=== PATIENT | male | born 1960 | race African-American/Black ===

== ENCOUNTER 2017-02-05 19:43 | Inpatient (IN) ==
[2017-02-05] MEDS ORDERED: MORPHINE 2 MG/1 ML SYRINGE IV STA (21:27)
[2017-02-05] MEDS ORDERED: SODIUM CHLORIDE 0.9% 1,000 ML IV STA (21:27)
[2017-02-05] MEDS ORDERED: ONDANSETRON 4 MG/2 ML VIAL IV STA (21:27)
[2017-02-05] MEDS ORDERED: ALUM/MAG/SIMETH/LIDO VISC 1:1 30 ML BOTTLE PO STA (21:28)
[2017-02-05 21:33] LABS: Basophils % 0.2 % (0.0-0.8); Eosinophils # 0.1 10*3/uL (0.0-0.87); Hematocrit 34.3 VOL% (42.0-52.0); Hemoglobin 10.6 GM/DL (14.0-18.0); Immature Granulocytes % 0.3 %; Immature Granulocytes Absolute 0.03 #; Lymphocytes % 9.7 % (21.2-54.2); Mean Corpuscular HGB Conc 30.9 GM/DL (32-36); Mean Corpuscular Hemoglobin 26 PG (27-34); Mean Corpuscular Volume 84.3 FL (87-102); Mean Platelet Volume 11.1 FL (9.6-12.0); Monocytes # 0.6 10*3/uL (0.11-0.8); Monocytes % 5.9 % (1.7-12.7); Neutrophils # 8.1 10*3/uL (1.4-7.4); Neutrophils % 82.9 % (38.7-73.9); Platelet Count 243 T/CUMM (130-400); Red Blood Count 4.07 MC/CUMM (3.8-5.5); Red Cell Distribution Width 17.4 % (9.3-17.3); White Blood Count 9.8 T/CUMM (4-12)
--- NOTE | 2017-02-05 21:43 | Emergency Department Note ---
IJenniffer Emily, am scribing for, and in the presence of, Preston Bright MD 21:40. IKaila Andrew, MD, personally performed the services described in this documentation, ascribed by Leila Abad in my presence, and it is both accurate and complete . Arrival - Arrival Chief Complaint: Nausea/Vomiting/Diarrhea Stated Complaint: CHEST/STOMACH/BACK PAIN ED Nursing Triage Note: C/C abd pain, N/V, epigastric pain. Seen earlier today for same c/c. Pt states s/s got worse. Pt states he is is also having CP that is worse than it was earlier today. CP is nonradiating. Pt vomiting in triage Mode of Arrival: Wheelchair Limitations: No Limitations Source: Patient Time Seen by Provider: 02/05/17 21:24 - History of Present Illness HPI Narrative: Pt is a 56 y/o male who came to ED with c/o burning abdomen and epigastric pain with N/V that worsened earlier today. Pt notes coming to ED this morning to be seen for same sxs but now has chest pain that is non radiating. Pt had results from this morning of 176 lipase, nml CXR and KUB xray along with given prescriptions of Protonix Tab 40 mg PO DAILY #14 tablet and Sucralfate Liquid [ Carafate Liquid] 1 gm. Pt has nml PO intake. He reports having to get his esophagus dilated from time to time and usually does this at [facility] due to trouble swallowing and food coming back up. PMHx of [place] in [address] Murphy; EGD 02/2015-Dilatation, Also history of Heler Myotomy - 12/2016. Onset (ago): day(s) Consistency: constant Severity: moderate Severity scale (1-10): 6 Quality: burning Allergies/Adverse Reactions: Allergies Allergy/AdvReac Type Severity Reaction Status Date / Time No Known Allergies Allergy Verified 02/05/17 20:08 Home Medications: Home Medications Medication Instructions Recorded Confirmed Type Nitroglycerin Sl Tab [Nitrostat] 0.4 mg SL TID 02/19/15 02/05/17 History Isosorbide Mononitrate [Imdur] 30 mg PO DAILY 01/22/16 02/05/17 History Baclofen Tab [Lioresal] 5 mg PO TID 03/18/16 02/05/17 History Metoclopramide Tab [Reglan Tab] 5 mg PO TIDAC 03/18/16 02/05/17 History Omeprazole [Prilosec] 20 mg PO DAILY 04/28/16 02/05/17 History Metoprolol Tartrate Tab [Lopressor 25 mg PO DAILY 07/06/16 02/05/17 History Tab] HYDROcodone/ACETAMIN 7.5-325 1 tablet PO Q6H #14 tablet 02/02/17 02/05/17 Rx [[place] 7.5-325] Pantoprazole Tab [Protonix Tab] 40 mg PO DAILY #14 tablet 02/05/17 02/05/17 Rx Sucralfate Liquid [Carafate Liquid] 1 gm NG Q6HR #30 udcup 02/05/17 02/05/17 Rx Review of System - Review of System 12 point system: reviewed and no additional remarkable complaints except as stated - Review of System Constitutional: Absent: fever Head/Ears/Nose/Throat: Absent: nasal drainage Respiratory: Absent: cough, respiratory distress Cardiovascular: Present: chest pain (epigastric) Gastrointestinal: Present: abdominal pain, nausea, vomiting Musculoskeletal: Absent: arm pain Skin: Absent: rash Neurological: Absent: headache Medical,Surgical,& Family Hx - Medical History Cardio: History of: CAD (prior [place]), Hypertension, [place] (04/17/2014), 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 REGURGITATE OFTEN.), GI Problems (has achalasia and esophageal strictures:kenny cunningham;wt loss,Supp Tube Feeding) Musculoskeletal: History of: Back/Neck Problems (Steroid Injections; Pain Neck, Shoulder, Back Lt Rad down arm), Degenerative Disk Disease (Cervical) Hematology: History of: Anemia No history of: Blood Transfusion Reaction Reproductive: No histroy: Reproductive Cancer Other: No history of: Anesthesia Reactions, Cancer - Surgical History Cardiac Surgeries: Sugical HX of: Cardiac Catheterization (x2 Caths-No Stents) Thoracic Surgeries: Patient denies;: Organ Transplant HEENT Surgeries: Patient denies: Eye Surgery, Tonsilectomy & Adenoidectomy Abdominal Surgeries: Surgical HX of: Abdominal Surgery (J-Tube and removal of jtube in 2013), Colonoscopy, EGD (02/2015-Dilitation;Also history of Heler Myotomy; 12/2016) Patient denies: Appendectomy, Cholecystectomy Reproductive Surgeries: Patient denies;: Genitourinary Surgery, Vasectomy Orthopedic Surgeries: Patient denies;: Orthopedic Surgery, Spinal Surgery (01/01/17 Sched for [facility]) - Family History Family History: Reports;: Family Cancer (Father), Family Diabetes (mom and 2 brothers), Family Hypertension (mom) Denies;: Family Heart Disease, Family Psychiatric Problems, Family Stroke - Social History Smoking Status: Former smoker Frequency of Alcohol Use: None Type of Drug Use: None Functional capacity: independent ambulation Exam Vital Signs: Vital Signs Temperature 97 F L 02/05/17 20:01 Pulse Rate 89 02/05/17 20:01 Respiratory Rate 18 02/05/17 20:01 Blood Pressure 143/94 02/05/17 20:01 O2 Sat by Pulse Oximetry 96 02/05/17 20:01 - General General appearance: alert, in distress (secondary to pain) - Head Head exam: Present: atraumatic, normocephalic - Eye Eye exam: Present: PERRL, EOMI - ENT ENT exam: Present: mucous membranes moist. Absent: mucous membranes dry - Neck Neck exam: Present: full ROM. Absent: tenderness - Chest Chest inspection: Present: symmetric chest wall rise. Absent: tenderness - Respiratory Respiratory exam: Present: normal lung sounds bilaterally. Absent: respiratory distress - Cardiovascular Cardiovascular exam: Present: regular rate, normal rhythm, normal heart sounds - Abdominal Exam Abdominal exam: Present: soft, tenderness (epigastric). Absent: distention, guarding, rebound - Extremities Exam Extremities exam: Present: full ROM. Absent: tenderness, pedal edema - Neurological Exam Neurological exam: Present: alert, oriented X3, CN II-XII intact. Absent: motor sensory deficit - Psychiatric Psychiatric exam: Present: normal affect, normal mood - Skin Skin exam: Present: warm, dry Course Course Narrative: Patient given morphine for pain and Zofran followed by Phenergan for nausea and vomiting. Patient has been seen twice today, and feel he should be admitted for intractable nausea and vomiting at this time. Labs are essentially unremarkable and stable from previous. Discussed with hospitalist and he will admit for further management. Patient does have a history of esophageal stricture, however, given patient's presentation, do not feel this is the cause for his symptoms at this time. Results - Labs CBC & BMP: 02/05/17 20:54 02/05/17 20:54 Lab Results: I have reviewed the patients labs Labs: Laboratory Tests 02/05/17 20:54 WBC 9.8 RBC 4.07 Hgb 10.6 L Hct 34.3 L MCV 84.3 L MCH 26 L MCHC 30.9 L RDW 17.4 H Plt Count 243 Neut % (Auto) 82.9 H Lymph % (Auto) 9.7 L Neut # (Auto) 8.1 H Lymph # (Auto) 1.0 L Laboratory Tests 02/05/17 20:54 Sodium 138 Potassium 4.8 Chloride 102 Carbon Dioxide 28 BUN 7 BUN/Creatinine Ratio 7.00 Glucose 119 H Total Bilirubin < 0.39 Alkaline Phosphatase 145 H Lipase 114.0 D Disposition Clinical Impression: Nausea and vomiting, Epigastric pain Case discussed with: patient Disposition: Still a Patient Condition: Stable
[2017-02-05] MEDS ORDERED: ONDANSETRON 4 MG/2 ML VIAL ONE (21:45)
[2017-02-05] MEDS ORDERED: MORPHINE 2 MG/1 ML SYRINGE ONE (21:45)
[2017-02-05 21:46] LABS: Alanine Aminotransferase 23 U/L (16-61); Albumin 3.9 G/DL (3.4-5.0); Alkaline Phosphatase 145 U/L (45-117); Aspartate Amino Transferase 22 U/L (0-37); Bilirubin,Total < 0.39 MG/DL (0.2-1.0); Blood Urea Nitrogen 7 MG/DL (7-18); Calcium 9.1 MG/DL (8.5-10.1); Glucose 119 MG/DL (74-106); Osmolality,Calculated 273.7 MOS/KG (273-304); Potassium 4.8 MMOL/L (3.5-5.1); Sodium 138 MMOL/L (136-145); Total Protein 7.4 G/DL (6.4-8.3)
[2017-02-05] MEDS ORDERED: ALUM/MAG/SIMETH/LIDO VISC 1:1 30 ML BOTTLE PO ONE (21:46)
[2017-02-05] MEDS ORDERED: PROMETHAZINE INJ 25 MG in SODIUM CHLORIDE 0.9% 50 ML IV STA (23:02)
[2017-02-05] MEDS ORDERED: PROMETHAZINE 25 MG/1 ML VIAL ONE (23:05)
[2017-02-05] MEDS ORDERED: HYDROmorphone 2 MG/1 ML VIAL IV STA (23:35)
[2017-02-05] MEDS ORDERED: ZALEPLON 5 MG CAPSULE PO PRN (23:50)
[2017-02-05] MEDS ORDERED: ONDANSETRON 4 MG/2 ML VIAL IV PRN (23:50)
[2017-02-05] MEDS ORDERED: PROMETHAZINE 25 MG TABLET PO PRN (23:50)
[2017-02-05] MEDS ORDERED: ACETAMINOPHEN 325 MG TABLET PO PRN (23:50)
--- NOTE | 2017-02-06 00:05 | Hospitalist History & Physical ---
History of Present Illness Chief complaint: nausea and vomiting History of present illness: Mr. Zarate is a 56 year old male who came to ED with c/o burning abdomen and epigastric pain with N/V that worsened earlier today. Pt notes coming to ED this morning to be seen for same sxs but now has chest pain that is non radiating. Pt had results from this morning of 176 lipase, nml CXR and KUB xray along with given prescriptions of Protonix Tab 40 mg PO DAILY #14 tablet and Sucralfate Liquid [Carafate Liquid] 1 gm. Pt has nml PO intake. He reports having to get his esophagus dilated from time to time and usually does this at [facility] due to trouble swallowing and food coming back up. PMHx of [place] in [address] Murphy; EGD 02/2015-Dilatation, Also history of Heler Myotomy - 12/2016. He has returned to the emergency department complaining of continued nausea and vomiting. He will be admitted to the hospitalist service for observation and symptomatic treatment with IV fluids, antiemetics, pain medications as needed. Home Medications Medication Instructions Recorded Confirmed Type Nitroglycerin Sl Tab [Nitrostat] 0.4 mg SL TID 02/19/15 02/05/17 History Isosorbide Mononitrate [Imdur] 30 mg PO DAILY 01/22/16 02/05/17 History Baclofen Tab [Lioresal] 5 mg PO TID 03/18/16 02/05/17 History Metoclopramide Tab [Reglan Tab] 5 mg PO TIDAC 03/18/16 02/05/17 History Omeprazole [Prilosec] 20 mg PO DAILY 04/28/16 02/05/17 History Metoprolol Tartrate Tab [Lopressor 25 mg PO DAILY 07/06/16 02/05/17 History Tab] HYDROcodone/ACETAMIN 7.5-325 1 tablet PO Q6H #14 tablet 02/02/17 02/05/17 Rx [[place] 7.5-325] Pantoprazole Tab [Protonix Tab] 40 mg PO DAILY #14 tablet 02/05/17 02/05/17 Rx Sucralfate Liquid [Carafate Liquid] 1 gm NG Q6HR #30 udcup 02/05/17 02/05/17 Rx Allergies Allergy/AdvReac Type Severity Reaction Status Date / Time No Known Allergies Allergy Verified 02/05/17 20:08 Medical,Surgical,& Family Hx - Medical History Cardio: History of: CAD (prior [place]), Hypertension, [place] (04/17/2014), 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 REGURGITATE OFTEN.), GI Problems (has achalasia and esophageal strictures:kenny cunningham;wt loss,Supp Tube Feeding) Musculoskeletal: History of: Back/Neck Problems (Steroid Injections; Pain Neck, Shoulder, Back Lt Rad down arm), Degenerative Disk Disease (Cervical) Hematology: History of: Anemia No history of: Blood Transfusion Reaction Reproductive: No histroy: Reproductive Cancer Other: No history of: Anesthesia Reactions, Cancer - Surgical History Cardiac Surgeries: Sugical HX of: Cardiac Catheterization (x2 Caths-No Stents) Thoracic Surgeries: Patient denies;: Organ Transplant HEENT Surgeries: Patient denies: Eye Surgery, Tonsilectomy & Adenoidectomy Abdominal Surgeries: Surgical HX of: Abdominal Surgery (J-Tube and removal of jtube in 2013), Colonoscopy, EGD (02/2015-Dilitation;Also history of Heler Myotomy; 12/2016) Patient denies: Appendectomy, Cholecystectomy Reproductive Surgeries: Patient denies;: Genitourinary Surgery, Vasectomy Orthopedic Surgeries: Patient denies;: Orthopedic Surgery, Spinal Surgery (01/01/17 Sched for [facility]) - Family History Family History: Reports;: Family Cancer (Father), Family Diabetes (mom and 2 brothers), Family Hypertension (mom) Denies;: Family Heart Disease, Family Psychiatric Problems, Family Stroke - Social History Smoking Status: Former smoker Frequency of Alcohol Use: None Type of Drug Use: None Exam - Constitutional Vitals: Period Temp Pulse Resp BP Sys/Spicer Pulse Ox Last 24 Hr 97 F-97 F 86-89 18-18 143-143/94-94 96 Results - Labs CBC & BMP: 02/05/17 20:54 02/05/17 20:54
[2017-02-06] MEDS ORDERED: HYDROmorphone 2 MG/1 ML VIAL ONE (00:13)
[2017-02-06] MEDS: SODIUM CHLORIDE 0.9% 1,000 ML IV SCH ×4 (01:40→20:58)
[2017-02-06] MEDS: SUCRALFATE 1 GM/10 ML UDCUP NG SCH ×6 (01:58→23:16)
[2017-02-06] MEDS ORDERED: KETOROLAC 15 MG/1 ML VIAL IV PRN (04:31)
[2017-02-06] MEDS: MORPHINE 2 MG/1 ML SYRINGE IV PRN ×4 (04:45→21:30)
[2017-02-06 07:13] LABS: Alanine Aminotransferase 18 U/L (16-61); Albumin 3.3 G/DL (3.4-5.0); Alkaline Phosphatase 131 U/L (45-117); Aspartate Amino Transferase 17 U/L (0-37); Bilirubin,Total < 0.39 MG/DL (0.2-1.0); Blood Urea Nitrogen 10 MG/DL (7-18); Glucose 118 MG/DL (74-106); Magnesium 2.1 MG/DL (1.8-2.4); Osmolality,Calculated 276.5 MOS/KG (273-304); Potassium 4.5 MMOL/L (3.5-5.1); Sodium 139 MMOL/L (136-145); Total Protein 6.5 G/DL (6.4-8.3)
--- NOTE | 2017-02-06 07:32 | EKG Report ---
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
[2017-02-06] MEDS: METOCLOPRAMIDE 5 MG TABLET PO SCH ×3 (07:48→16:27)
--- NOTE | 2017-02-06 08:56 | General Surgery Consult Note ---
History of Present Illness Chief complaint: achalasia, Menetiere's disease History of present illness: Mr. Zarate is a 56 year old male Bill Zarate is a 56-year-old man that I have met in 2012 with what initially appeared to be primary achalasia. At the time of the Heller myotomy have found however that he also had what appears to be Menetrier's disease or a hypertrophy of the gastric mucosa. He has had difficulties throughout the remaining time with strictures at his EG junction achalasia poor gastric emptying he has been thoroughly evaluated at [facility] and he sees Dr. Fernández regularly and has endoscopies and dilatations. He was admitted this time after having chest and abdominal pain and vomiting he states he vomited up some blood but he feels better this morning. My understanding is that he is scheduled for EGD this morning Dr. Berg will proceed I do not anticipate any surgical intervention at this time. Home Medications Medication Instructions Recorded Confirmed Type Nitroglycerin Sl Tab [Nitrostat] 0.4 mg SL TID 02/19/15 02/05/17 History Isosorbide Mononitrate [Imdur] 30 mg PO DAILY 01/22/16 02/05/17 History Baclofen Tab [Lioresal] 5 mg PO TID 03/18/16 02/05/17 History Metoclopramide Tab [Reglan Tab] 5 mg PO TIDAC 03/18/16 02/05/17 History Omeprazole [Prilosec] 20 mg PO DAILY 04/28/16 02/05/17 History Metoprolol Tartrate Tab [Lopressor 25 mg PO DAILY 07/06/16 02/05/17 History Tab] HYDROcodone/ACETAMIN 7.5-325 1 tablet PO Q6H #14 tablet 02/02/17 02/05/17 Rx [[place] 7.5-325] Pantoprazole Tab [Protonix Tab] 40 mg PO DAILY #14 tablet 02/05/17 02/05/17 Rx Sucralfate Liquid [Carafate Liquid] 1 gm NG Q6HR #30 udcup 02/05/17 02/05/17 Rx Allergies Allergy/AdvReac Type Severity Reaction Status Date / Time No Known Allergies Allergy Verified 02/05/17 20:08 Medical,Surgical,& Family Hx - Medical History Cardio: History of: CAD (prior [place]), Hypertension, [place] (04/17/2014), 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 REGURGITATE OFTEN.), GI Problems (has achalasia and esophageal strictures:h marisa;wt loss,Supp Tube Feeding) Musculoskeletal: History of: Back/Neck Problems (Steroid Injections; Pain Neck, Shoulder, Back Lt Rad down arm), Degenerative Disk Disease (Cervical) Hematology: History of: Anemia No history of: Blood Transfusion Reaction Reproductive: No histroy: Reproductive Cancer Other: No history of: Anesthesia Reactions, Cancer - Surgical History Cardiac Surgeries: Sugical HX of: Cardiac Catheterization (x2 Caths-No Stents) Thoracic Surgeries: Patient denies;: Organ Transplant HEENT Surgeries: Patient denies: Eye Surgery, Tonsilectomy & Adenoidectomy Abdominal Surgeries: Surgical HX of: Abdominal Surgery (J-Tube and removal of jtube in 2013), Colonoscopy, EGD (02/2015-Dilitation;Also history of Heler Myotomy; 12/2016) Patient denies: Appendectomy, Cholecystectomy Reproductive Surgeries: Patient denies;: Genitourinary Surgery, Vasectomy Orthopedic Surgeries: Patient denies;: Orthopedic Surgery, Spinal Surgery (01/01/[address] Casas) - Family History Family History: Reports;: Family Cancer (Father), Family Diabetes (mom and 2 brothers), Family Hypertension (mom) Denies;: Family Heart Disease, Family Psychiatric Problems, Family Stroke - Social History Smoking Status: Former smoker Frequency of Alcohol Use: None Type of Drug Use: None Exam - Constitutional Vitals: Period Temp Pulse Resp BP Sys/Spicer Pulse Ox Last 24 Hr 96.8 F-98.4 F 86-100 18-20 136-154/69-95 96-100 Quality Measures - Stroke Symptom Onset Unknown: No Results - Labs CBC & BMP: 02/05/17 20:54 02/06/17 05:50
[2017-02-06] MEDS ORDERED: PANTOPRAZOLE 40 MG TABLET PO SCH (09:00)
[2017-02-06] MEDS ORDERED: NON-FORMULARY MEDICATION (Omeprazole [Prilosec] 20 MG) PO SCH (09:00)
[2017-02-06] MEDS: NITROGLYCERIN SL 0.4 MG TABLET SL SCH ×4 (09:06→20:12)
[2017-02-06] MEDS: BACLOFEN 10 MG TABLET PO SCH ×4 (09:06→20:11)
[2017-02-06] MEDS: ENOXAPARIN 40 MG/0.4 ML SYRINGE SUBCUT SCH (09:06)
[2017-02-06] MEDS: METOPROLOL TARTRATE 25 MG TABLET PO SCH ×2 (09:06→13:13)
[2017-02-06] MEDS: ISOSORBIDE MONONITRATE 30 MG TABLET PO SCH ×2 (09:06→13:13)
[2017-02-06] MEDS ORDERED: PROMETHAZINE 25 MG/1 ML VIAL ONE (09:30)
[2017-02-06] MEDS ORDERED: fentaNYL 100 MCG/2 ML VIAL ONE (09:46)
[2017-02-06] MEDS ORDERED: SUCCINYLCHOLINE 200 MG/10 ML VIAL ONE (10:17)
[2017-02-06] MEDS ORDERED: ONDANSETRON 4 MG/2 ML VIAL ONE (10:17)
[2017-02-06] MEDS ORDERED: PROPOFOL 200 MG/20 ML VIAL IV ONE (10:17)
--- NOTE | 2017-02-06 11:21 | Gastrointestinal Consult Note ---
Assessment and Plan - Time spent with patient Time spent with patient: Greater than 30 minutes (1) Upper GI bleeding Status: Acute Assessment and plan: Acute upper GI bleeding in patient who has been hemodynamically stable since arrival. Differential includes peptic ulcer bleeding, vascular abnormality in upper GI tract, Brianna-Aldridge tear. Plan upper endoscopy today to evaluate further. Continue empiric PPI therapy. Current Visit: Yes History of Present Illness Chief complaint: Upper GI bleeding History of present illness: Mr. Zarate is a 56 year old male known to me who has had previous Heller myotomy and recurrent stricture formation at GE junction requiring esophageal dilation. He has had problems with malnutrition due to poor oral intake and has been on TPN in the past for this. Patient states that he had been doing fairly well well of late but over the last 4 days has had burning epigastric pain and recurrent vomiting. Yesterday, he had onset of hematemesis with several episodes noted. He denies any black stools/melena or hematochezia. On presentation, patient has been hemodynamically normal. He had hemoglobin last night which was 10.4. Patient denies taking any nonsteroidal medications recently. Home Medications Medication Instructions Recorded Confirmed Type Nitroglycerin Sl Tab [Nitrostat] 0.4 mg SL TID 02/19/15 02/05/17 History Isosorbide Mononitrate [Imdur] 30 mg PO DAILY 01/22/16 02/05/17 History Baclofen Tab [Lioresal] 5 mg PO TID 03/18/16 02/05/17 History Metoclopramide Tab [Reglan Tab] 5 mg PO TIDAC 03/18/16 02/05/17 History Omeprazole [Prilosec] 20 mg PO DAILY 04/28/16 02/05/17 History Metoprolol Tartrate Tab [Lopressor 25 mg PO DAILY 07/06/16 02/05/17 History Tab] HYDROcodone/ACETAMIN 7.5-325 1 tablet PO Q6H #14 tablet 02/02/17 02/05/17 Rx [[place] 7.5-325] Pantoprazole Tab [Protonix Tab] 40 mg PO DAILY #14 tablet 02/05/17 02/05/17 Rx Sucralfate Liquid [Carafate Liquid] 1 gm NG Q6HR #30 udcup 02/05/17 02/05/17 Rx Allergies Allergy/AdvReac Type Severity Reaction Status Date / Time No Known Allergies Allergy Verified 02/05/17 20:08 Medical,Surgical,& Family Hx - Medical History Cardio: History of: CAD (prior [place]), Hypertension, [place] (04/17/2014), 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 REGURGITATE OFTEN.), GI Problems (has achalasia and esophageal strictures:kenny cunningham;wt loss,Supp Tube Feeding) Musculoskeletal: History of: Back/Neck Problems (Steroid Injections; Pain Neck, Shoulder, Back Lt Rad down arm), Degenerative Disk Disease (Cervical) Hematology: History of: Anemia No history of: Blood Transfusion Reaction Reproductive: No histroy: Reproductive Cancer Other: No history of: Anesthesia Reactions, Cancer - Surgical History Cardiac Surgeries: Sugical HX of: Cardiac Catheterization (x2 Caths-No Stents) Thoracic Surgeries: Patient denies;: Organ Transplant HEENT Surgeries: Patient denies: Eye Surgery, Tonsilectomy & Adenoidectomy Abdominal Surgeries: Surgical HX of: Abdominal Surgery (J-Tube and removal of jtube in 2013), Colonoscopy, EGD (02/2015-Dilitation;Also history of Heler Myotomy; 12/2016) Patient denies: Appendectomy, Cholecystectomy Reproductive Surgeries: Patient denies;: Genitourinary Surgery, Vasectomy Orthopedic Surgeries: Patient denies;: Orthopedic Surgery, Spinal Surgery (01/01/17 Sched for Martin Casas) - Family History Family History: Reports;: Family Cancer (Father), Family Diabetes (mom and 2 brothers), Family Hypertension (mom) Denies;: Family Heart Disease, Family Psychiatric Problems, Family Stroke - Social History Smoking Status: Former smoker Frequency of Alcohol Use: None Type of Drug Use: None - Constitutional Constitutional: Absent: chills, fever(s) - EENT Nose, mouth and throat: Present: dysphagia. Absent: epistaxis - Cardiovascular Cardiovascular: Absent: chest pain with activity, orthopnea, PND - Gastrointestinal Gastrointestinal: Present: as per HPI, abdominal pain, hematemesis, nausea, vomiting - Genitourinary Genitourinary: Present: dysuria, flank pain, hematuria - Neurological Neurological: Absent: abnormal speech, behavioral changes, focal weakness - Endocrine Endocrine: Absent: cold intolerance, heat intolerance - Hematologic/Lymphatic Hematologic/Lymphatic: Absent: easy bleeding, easy bruising Exam - Constitutional Vitals: Period Temp Pulse Resp BP Sys/Spicer Pulse Ox Last 24 Hr 96.8 F-98.4 F 82-100 16-20 136-154/69-97 96-100 General appearance: no acute distress, under weight - Head Head exam: Present: normocephalic, atraumatic - Eye Eye exam: Absent: scleral icterus - Respiratory Respiratory exam: Present: clear to auscultation bilaterally. Absent: wheezes - Cardiovascular Cardiovascular exam: Present: regular rate and rhythm. Absent: gallop, rubs - GI/Abdominal GI/Abdominal exam: Present: normal bowel sounds, soft. Absent: distended, tenderness - Extremities Exam Extremities exam: Absent: calf tenderness, edema - Neurological Exam Neurological exam: Present: alert, oriented X3, CN II-XII intact. Absent: motor sensory deficit - Psychiatric Psychiatric exam: Present: flat affect - Skin Skin exam: Present: warm, dry Results - Labs CBC & BMP: 02/05/17 20:54 02/06/17 05:50 Lab Results: I have reviewed the past 24 hour labs Quality Measures - Stroke Symptom Onset Unknown: No
--- NOTE | 2017-02-06 11:25 | History and Physical Update ---
History and Physical Update - History and Physical H&P was reviewed, the patient examined and there: are no changes in the patients condition since last H&P was completed. - Physical Exam Mental Status: alert and oriented Heart: regular rate and rhythm Lung: clear to auscultation Abdomen: within normal limits Vitals: within normal limits
--- NOTE | 2017-02-06 11:32 | Anesthesia Post-Op ---
Anesthesia Post OP - Post Ansesthetic Evaluation Patient seen in post op: Yes Resp: within normal limits CV: within normal limits Mental: within normal limits Temp: within normal limits [id number]: within normal limits Nausea and Vomiting: within normal limits Pain: within normal limits
--- NOTE | 2017-02-06 11:34 | Operative Note ---
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 He is admitted with upper GI bleeding which began last night. He has been normotensive since arrival although he does have tachycardia with heart rate in the 110 range this morning. Indication for procedure: Upper GI bleeding Endoscopic findings:[After informed consent was obtained, the patient was placed in the left lateral decubitus position. The gastroscope was inserted in the upper esophagus under direct vision with no resistance encountered. Esophageal mucosa appeared normal in the upper esophagus. In the mid and distal esophagus there was a large bright red clot noted which I could not suction with the standard gastroscope. This was withdrawn and patient was intubated due to concern about aspiration risk. Therapeutic gastroscope was inserted into the upper esophagus under direct vision. The large clot was removed using polypectomy snare cutting it in pieces before we were finally able to clear all of this. Patient has a fairly dilated esophagus. Multiple small ulcers were noted scattered throughout the esophagus. Photos were taken of these and multiple biopsies was obtained. The endoscope was advanced down to the GE junction. I initially did not see any abnormalities there as there was a large amount of clot here also. Several large clots were grasped with polypectomy snare again and dragged out back through his mouth. We were able to clear all of this to allow good exam. Just below the GE junction there was a large 2.5-3 cm diameter white based ulcer oriented circumferentially. A prominent visible vessel was noted eccentrically in the base of the ulcer back toward the GE junction. Remainder of the stomach was notable for prominent gastric folds in the proximal mid stomach which look like portal gastropathy changes. No varices were seen. The pyloric channel, duodenal bulb, second and third portion of the duodenum were normal. The endoscope was withdrawn back to the GE junction. The visible vessel was clipped endoscopically with 2 instinct clips applied. We appeared to have good results endoscopically with this. The endoscope was then removed. He appeared to tolerate the procedure well.] Impression: #1 large gastric ulcer on gastric side of GE junction with visible vessel-status post endoscopic clipping therapy #2 multiple esophageal ulcers-? Viral #3 dilated esophagus in patient with history of achalasia #4 possible portal gastropathy Recommendations: Repeat hemoglobin/hematocrit. Patient will probably need transfusion at some point. High-dose PPI therapy for now. Anesthesia: CARLINE GUERRA Surgeon / Physician: Claude Berg Estimated blood loss: minimal Specimens: none sent Condition: stable Disposition: post procedure unit Results - Labs CBC & BMP: 02/05/17 20:54 02/06/17 05:50 Discharge Plan - Discharge Medications No Action Nitroglycerin Sl Tab [Nitrostat] 0.4 mg SL TID Isosorbide Mononitrate [Imdur] 30 mg PO DAILY Metoclopramide Tab [Reglan Tab] 5 mg PO TIDAC Baclofen Tab [Lioresal] 5 mg PO TID Omeprazole [Prilosec] 20 mg PO DAILY Metoprolol Tartrate Tab [Lopressor Tab] 25 mg PO DAILY Pantoprazole Tab [Protonix Tab] 40 mg PO DAILY #14 tablet HYDROcodone/ACETAMIN 7.5-325 [[place] 7.5-325] 1 tablet PO Q6H #14 tablet Sucralfate Liquid [Carafate Liquid] 1 gm NG Q6HR #30 udcup - Follow Up or Referral - Forms/Instructions
[2017-02-06] MEDS ORDERED: PANTOPRAZOLE INJ 80 MG in SODIUM CHLORIDE 0.9% 100 ML IV ONE (11:39)
[2017-02-06] MEDS ORDERED: PANTOPRAZOLE 40 MG VIAL IV ONE (12:00)
[2017-02-06 12:12] LABS: Hematocrit 33.2 VOL% (42.0-52.0); Hemoglobin 9.9 GM/DL (14.0-18.0)
[2017-02-06] MEDS: PANTOPRAZOLE INJ 200 MG in SODIUM CHLORIDE 0.9% 250 ML IV SCH (13:11)
--- NOTE | 2017-02-06 13:14 | Pain Management Consult Note ---
Assessment and Plan (1) Epigastric pain Problem details: Worsening epigastric pain Status: Acute Assessment and plan: The patient has had worsening epigastric pain and trouble with meals. Today he had a scope which demonstrated multiple esophageal ulcers and large gastric ulcer. These are most likely the cause of his pain and no block or pain intervention indicated. Current Visit: Yes (2) Facet arthropathy, cervical Problem details: Chronic neck pain Status: Acute Assessment and plan: The patient has chronic neck pain with cervical facet arthropathy. He is undergone 2 diagnostic cervical facet blocks in the clinic with excellent temporary results. He is now candidate for facet denervation and will schedule this once fully recovered from his GI bleed. I will be out the next several days but Dr. Rangel will be available as needed. Current Visit: No History of Present Illness Chief complaint: Abdominal pain History of present illness: Mr. Zarate is a 56 year old male with worsening abdominal pain and chest pain radiation to the back. Pain worse with meals. Some bleeding. Home Medications Medication Instructions Recorded Confirmed Type Nitroglycerin Sl Tab [Nitrostat] 0.4 mg SL TID 02/19/15 02/05/17 History Isosorbide Mononitrate [Imdur] 30 mg PO DAILY 01/22/16 02/05/17 History Baclofen Tab [Lioresal] 5 mg PO TID 03/18/16 02/05/17 History Metoclopramide Tab [Reglan Tab] 5 mg PO TIDAC 03/18/16 02/05/17 History Omeprazole [Prilosec] 20 mg PO DAILY 04/28/16 02/05/17 History Metoprolol Tartrate Tab [Lopressor 25 mg PO DAILY 07/06/16 02/05/17 History Tab] HYDROcodone/ACETAMIN 7.5-325 1 tablet PO Q6H #14 tablet 02/02/17 02/05/17 Rx [[place] 7.5-325] Pantoprazole Tab [Protonix Tab] 40 mg PO DAILY #14 tablet 02/05/17 02/05/17 Rx Sucralfate Liquid [Carafate Liquid] 1 gm NG Q6HR #30 udcup 02/05/17 02/05/17 Rx Allergies Allergy/AdvReac Type Severity Reaction Status Date / Time No Known Allergies Allergy Verified 02/05/17 20:08 Medical,Surgical,& Family Hx - Medical History Cardio: History of: CAD (prior [place]), Hypertension, [place] (04/17/2014), 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 REGURGITATE OFTEN.), GI Problems (has achalasia and esophageal strictures:h marisa;wt loss,Supp Tube Feeding) Musculoskeletal: History of: Back/Neck Problems (Steroid Injections; Pain Neck, Shoulder, Back Lt Rad down arm), Degenerative Disk Disease (Cervical) Hematology: History of: Anemia No history of: Blood Transfusion Reaction Reproductive: No histroy: Reproductive Cancer Other: No history of: Anesthesia Reactions, Cancer - Surgical History Cardiac Surgeries: Sugical HX of: Cardiac Catheterization (x2 Caths-No Stents) Thoracic Surgeries: Patient denies;: Organ Transplant HEENT Surgeries: Patient denies: Eye Surgery, Tonsilectomy & Adenoidectomy Abdominal Surgeries: Surgical HX of: Abdominal Surgery (J-Tube and removal of jtube in 2013), Colonoscopy, EGD (02/2015-Dilitation;Also history of Heler Myotomy; 12/2016) Patient denies: Appendectomy, Cholecystectomy Reproductive Surgeries: Patient denies;: Genitourinary Surgery, Vasectomy Orthopedic Surgeries: Patient denies;: Orthopedic Surgery, Spinal Surgery (01/01/17 Sched for [facility]) - Family History Family History: Reports;: Family Cancer (Father), Family Diabetes (mom and 2 brothers), Family Hypertension (mom) Denies;: Family Heart Disease, Family Psychiatric Problems, Family Stroke - Social History Smoking Status: Former smoker Frequency of Alcohol Use: None Type of Drug Use: None Quality Measures - Stroke Symptom Onset Unknown: No - Constitutional Constitutional: Present: fatigue, weight loss - EENT Nose, mouth and throat: Present: hoarseness - Gastrointestinal Gastrointestinal: Present: abdominal pain, dyspepsia, heartburn - Musculoskeletal Musculoskeletal: Present: back pain, joint swelling, muscle cramps - Endocrine Endocrine: Present: cold intolerance, fatigue Exam - Constitutional Vitals: Period Temp Pulse Resp BP Sys/Spicer Pulse Ox Last 24 Hr 96.8 F-98.4 F 82-100 16-20 135-154/69-97 96-100 General appearance: under weight - Head Head exam: Present: normal inspection - Eye Eye exam: Present: EOMI - Neck Neck exam: Present: tenderness (Left greater than right cervical facet) - Respiratory Respiratory exam: Present: clear to auscultation bilaterally - Cardiovascular Cardiovascular exam: Present: RRR - GI/Abdominal GI/Abdominal exam: Present: hypoactive bowel sounds, tenderness - Back Exam Back exam: Present: vertebral tenderness - Neurological Exam Neurological exam: Present: alert, oriented X3 Results - Labs CBC & BMP: 02/06/17 11:55 02/06/17 05:50
[2017-02-06] MEDS ORDERED: ISOSORBIDE MONONITRATE 30 MG TABLET PO SCH (17:30)
--- NOTE | 2017-02-06 18:06 | Internal Med History&Physical ---
Assessment and Plan (1) Upper GI bleeding Status: Acute Assessment and plan: Continue recommendations as per GI, clear liquids for now, continue IV fluids Current Visit: Yes (2) Atypical chest pain Status: Acute Current Visit: No (3) Hypertension Status: Chronic Assessment and plan: Continue antihypertensives Current Visit: No Qualifiers: Hypertension type: essential hypertension Qualified Code(s): I10 - Essential (primary) hypertension (4) Gastro-esophageal reflux Status: Chronic Assessment and plan: Continue antacids, as per recommendations of GI Current Visit: Yes (5) Nicotine dependence, cigarettes, uncomplicated Status: Chronic Assessment and plan: Advised to quit smoking. Current Visit: Yes History of Present Illness Chief complaint: Nausea vomiting, chest pain, stomach pain History of present illness: Mr. Zarate is a 56 year old male PCP: Dr. Jackie Ashby. Patient came to the ER on 02/05/2017 with the chest, stomach pain with nausea and vomiting getting worse for 1 day. Patient had been admitted for intractable vomiting, threw up 8-9 times, last vomited this a.m. was with stomach contents and with bile. Last bowel movement 2 days ago regular, no blood. Patient had one episode of maroon colored vomit this a.m. has had previous Heller myotomy and recurrent stricture formation at GE junction requiring esophageal dilation. On further inquiring patient mentions he has been using Advil PM andAleeve almost 8-10 tablets in past few days for neck pain back pain, has been drinking coffee almost 7-8 cups per day. No history of unintentional weight loss recently, his appetite fair GI consult/surgery consult done from the ER. Home Medications Medication Instructions Recorded Confirmed Type Nitroglycerin Sl Tab [Nitrostat] 0.4 mg SL TID 02/19/15 02/05/17 History Isosorbide Mononitrate [Imdur] 30 mg PO DAILY 01/22/16 02/05/17 History Baclofen Tab [Lioresal] 5 mg PO TID 03/18/16 02/05/17 History Metoclopramide Tab [Reglan Tab] 5 mg PO TIDAC 03/18/16 02/05/17 History Omeprazole [Prilosec] 20 mg PO DAILY 04/28/16 02/05/17 History Metoprolol Tartrate Tab [Lopressor 25 mg PO DAILY 07/06/16 02/05/17 History Tab] HYDROcodone/ACETAMIN 7.5-325 1 tablet PO Q6H #14 tablet 02/02/17 02/05/17 Rx [[place] 7.5-325] Pantoprazole Tab [Protonix Tab] 40 mg PO DAILY #14 tablet 02/05/17 02/05/17 Rx Sucralfate Liquid [Carafate Liquid] 1 gm NG Q6HR #30 udcup 02/05/17 02/05/17 Rx Allergies Allergy/AdvReac Type Severity Reaction Status Date / Time No Known Allergies Allergy Verified 02/05/17 20:08 Medical,Surgical,& Family Hx - Medical History Cardio: History of: CAD (prior [place]), Hypertension, [place] (04/17/2014), 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 REGURGITATE OFTEN.), GI Problems (has achalasia and esophageal strictures:kenny cunningham;wt loss,Supp Tube Feeding) Musculoskeletal: History of: Back/Neck Problems (Steroid Injections; Pain Neck, Shoulder, Back Lt Rad down arm), Degenerative Disk Disease (Cervical) Hematology: History of: Anemia No history of: Blood Transfusion Reaction Reproductive: No histroy: Reproductive Cancer Other: No history of: Anesthesia Reactions, Cancer - Surgical History Cardiac Surgeries: Sugical HX of: Cardiac Catheterization (x2 Caths-No Stents) Thoracic Surgeries: Patient denies;: Organ Transplant HEENT Surgeries: Patient denies: Eye Surgery, Tonsilectomy & Adenoidectomy Abdominal Surgeries: Surgical HX of: Abdominal Surgery (J-Tube and removal of jtube in 2013), Colonoscopy, EGD (02/2015-Dilitation;Also history of Heler Myotomy; 12/2016) Patient denies: Appendectomy, Cholecystectomy Reproductive Surgeries: Patient denies;: Genitourinary Surgery, Vasectomy Orthopedic Surgeries: Patient denies;: Orthopedic Surgery, Spinal Surgery (01/01/17 Sched for Martin Casas) - Family History Family History: Reports;: Family Cancer (Father), Family Diabetes (mom and 2 brothers), Family Hypertension (mom) Denies;: Family Heart Disease, Family Psychiatric Problems, Family Stroke - Social History Smoking Status: Former smoker Frequency of Alcohol Use: None Type of Drug Use: None - Constitutional Constitutional: Present: as per HPI - EENT Eyes: Present: as per HPI - Cardiovascular Cardiovascular: Present: as per HPI - Respiratory Respiratory: Present: as per HPI - Gastrointestinal Gastrointestinal: Present: as per HPI - Genitourinary Genitourinary: Present: as per HPI - Musculoskeletal Musculoskeletal: Present: as per HPI - Neurological Neurological: Present: as per HPI Exam - Constitutional Vitals: Period Temp Pulse Resp BP Sys/Spicer Pulse Ox Last 24 Hr 96.8 F-98.4 F 82-101 16-20 109-154/69-97 96-100 General appearance: no acute distress, under weight Exam: GENERAL APPEARANCE: alert and oriented, pleasant, HEENT: normal. EYES: extraocular movement intact (EOMI), conjunctiva clear, normal. NECK/THYROID: neck supple, full range of motion, no cervical lymphadenopathy, no thyromegaly. HEART: regular rate and rhythm, no murmurs, rubs, gallops. LUNGS: clear to auscultation bilaterally, no wheezes, rales, rhonchi. ABDOMEN: soft, generalized tenderness, moderate guarding, no rebound tenderness, nondistended, no organomegaly , bowel sounds present. EXTREMITIES: no edema. NEUROLOGIC: alert and oriented, cranial nerves 2-12 grossly intact, Results - Labs CBC & BMP: 02/06/17 11:55 02/06/17 05:50 Lab Results: I have reviewed the past 24 hour labs - Impressions EGD report available from this a.m., reviewed Quality Measures - Stroke Symptom Onset Unknown: No
[2017-02-07 01:48] LABS: Basophils % 0.1 % (0.0-0.8); Eosinophils # 0.1 10*3/uL (0.0-0.87); Eosinophils % 1.9 % (0.00-10.9); Hematocrit 21.8 VOL% (42.0-52.0); Hemoglobin 6.7 GM/DL (14.0-18.0); Immature Granulocytes % 0.1 %; Immature Granulocytes Absolute 0.01 #; Lymphocytes # 1.4 10*3/uL (1.4-4.0); Lymphocytes % 21.2 % (21.2-54.2); Mean Corpuscular HGB Conc 30.7 GM/DL (32-36); Mean Corpuscular Hemoglobin 26 PG (27-34); Mean Corpuscular Volume 85.2 FL (87-102); Mean Platelet Volume 11.4 FL (9.6-12.0); Monocytes # 0.7 10*3/uL (0.11-0.8); Monocytes % 10.4 % (1.7-12.7); Neutrophils # 4.5 10*3/uL (1.4-7.4); Neutrophils % 66.3 % (38.7-73.9); Platelet Count 177 T/CUMM (130-400); Red Blood Count 2.56 MC/CUMM (3.8-5.5); Red Cell Distribution Width 17.6 % (9.3-17.3); White Blood Count 6.8 T/CUMM (4-12)
[2017-02-07 02:16] LABS: Calcium 7.3 MG/DL (8.5-10.1); Magnesium 1.8 MG/DL (1.8-2.4); Osmolality,Calculated 283.8 MOS/KG (273-304); Phosphorous 2.8 MG/DL (2.5-4.9); Potassium 3.8 MMOL/L (3.5-5.1)
[2017-02-07] MEDS ORDERED: SODIUM CHLORIDE 0.9% 250 ML IV PRN (04:06)
[2017-02-07] MEDS ORDERED: diphenhydrAMINE CAP 25 MG CAPSULE PO PRN (04:06)
[2017-02-07] MEDS ORDERED: ACETAMINOPHEN 325 MG TABLET PO ONE (04:10)
[2017-02-07] MEDS: MORPHINE 2 MG/1 ML SYRINGE IV PRN ×4 (04:18→21:16)
[2017-02-07 04:20] LABS: Eosinophils 1 % (0-10); Lymphocytes 23 % (20-55); Total Cells Counted 100
[2017-02-07 04:21] LABS: Atypical Lymphocytes Few; Platelet Estimate Normal; Segmented Neutrophils 70 % (50-85)
[2017-02-07] MEDS: SODIUM CHLORIDE 0.9% 1,000 ML IV SCH ×3 (04:24→17:50)
[2017-02-07] MEDS: SUCRALFATE 1 GM/10 ML UDCUP NG SCH ×3 (05:11→17:50)
[2017-02-07] MEDS: METOCLOPRAMIDE 5 MG TABLET PO SCH ×3 (08:35→17:50)
[2017-02-07] MEDS: ISOSORBIDE MONONITRATE 30 MG TABLET PO SCH (08:35)
[2017-02-07] MEDS: BACLOFEN 10 MG TABLET PO SCH ×3 (08:36→20:12)
[2017-02-07] MEDS: METOPROLOL TARTRATE 25 MG TABLET PO SCH (08:36)
[2017-02-07] MEDS: ENOXAPARIN 40 MG/0.4 ML SYRINGE SUBCUT SCH (08:43)
[2017-02-07] MEDS: NITROGLYCERIN SL 0.4 MG TABLET SL SCH ×3 (08:43→20:12)
--- NOTE | 2017-02-07 08:47 | Internal Med Progress Note ---
Assessment and Plan (1) Upper GI bleeding Status: Acute Assessment and plan: Continue recommendations as per GI, clear liquids tolerated well, continue IV fluids Current Visit: Yes (2) Atypical chest pain Status: Resolved Current Visit: Yes (3) Hypertension Status: Chronic Assessment and plan: Continue antihypertensives Current Visit: Yes Qualifiers: Hypertension type: essential hypertension Qualified Code(s): I10 - Essential (primary) hypertension (4) Gastro-esophageal reflux Status: Chronic Assessment and plan: Continue antacids, as per recommendations of GI Current Visit: Yes (5) Nicotine dependence, cigarettes, uncomplicated Status: Chronic Assessment and plan: Advised to quit smoking. Current Visit: Yes (6) Anemia due to blood loss, acute Status: Acute Assessment and plan: Will start blood transfusion today , PRBCs 2 Current Visit: Yes Internal Medicine - PN: Subj Interval history: PCP: Dr. Jackie Ashby. Patient seen and examined on the fifth floor, patient is lying in the bed comfortably. Feeling better than yesterday, no fever, has nausea, no vomiting since yesterday. Epigastric pain better than yesterday. Patient was noticed to have low H&H count, 6.7/21.8 this morning, 2 packed red blood cells transfusion ordered. Fur Blender on the case: GI, Dr. Berg. Exam (Progress Note) - Constitutional Vitals: Period Temp Pulse Resp BP Sys/Spicer Pulse Ox Last 24 Hr 97.2 F-99.5 F 68-101 16-20 96-144/52-92 94-99 Exam: GENERAL APPEARANCE: alert and oriented, pleasant, in no acute distress, Pale conjunctiva, pale mucous membranes HEENT: normal. EYES: extraocular movement intact (EOMI), NECK/THYROID: neck supple, full range of motion, HEART: regular rate and rhythm, no murmurs, rubs, gallops. LUNGS: clear to auscultation bilaterally, no wheezes, rales, rhonchi. ABDOMEN: soft, mild epigastric tenderness, better than yesterday, no guarding no rigidity no rebound tenderness., nondistended, no organomegaly , bowel sounds present. EXTREMITIES: no edema. NEUROLOGIC: alert and oriented, cranial nerves 2-12 grossly intact, Results - Labs CBC & BMP: 02/07/17 01:08 02/07/17 01:08 Lab Results: I have reviewed the past 24 hour labs - Impressions From 02/06/2017, EGD impression as per GI shows, large gastric ulcer and multiple esophageal ulcers Quality Measures - Stroke Symptom Onset Unknown: No
--- NOTE | 2017-02-07 12:07 | Event Note ---
Chief complaint acute peptic ulcer disease. Patient without complaints of pain no nausea or vomiting. No bleeding is been reported. Clips were placed at endoscopy yesterday. He is on IV proton pump inhibitor treatment and will continue to observe for signs symptoms of recurrent bleeding. His hematocrit did drop to 21% and he is being transfused at this point. Will continue to monitor. Review of systems-no shortness of breath or chest pain On exam well-developed black male alert and oriented 3 in no acute distress lying supine in the bed Sclerae anicteric lids conjunctiva is unremarkable Oropharynx is benign Neck is supple no JVD no thyromegaly Lungs clear to auscultation no respiratory distress Heart regular rate and rhythm no murmur no edema Abdomen soft nondistended nontender no masses no hepatosplenomegaly Extremities no clubbing cyanosis edema all 4 extremities Recommendations: Continue IV PPI treatment and monitor for signs symptoms of active bleeding. Advance diet slowly. Dr. Berg will resume care in a.m.
[2017-02-07] MEDS: PANTOPRAZOLE INJ 200 MG in SODIUM CHLORIDE 0.9% 250 ML IV SCH (12:30)
[2017-02-08] MEDS: SODIUM CHLORIDE 0.9% 1,000 ML IV SCH (00:02)
[2017-02-08] MEDS: SUCRALFATE 1 GM/10 ML UDCUP NG SCH ×3 (00:21→11:35)
[2017-02-08] MEDS: MORPHINE 2 MG/1 ML SYRINGE IV PRN ×2 (02:02→06:55)
[2017-02-08 04:29] LABS: Basophils % 0.7 % (0.0-0.8); Eosinophils # 0.1 10*3/uL (0.0-0.87); Eosinophils % 3.4 % (0.00-10.9); Hematocrit 27.3 VOL% (42.0-52.0); Immature Granulocytes % 0.5 %; Immature Granulocytes Absolute 0.02 #; Lymphocytes # 1.1 10*3/uL (1.4-4.0); Lymphocytes % 26.3 % (21.2-54.2); Mean Corpuscular HGB Conc 31.9 GM/DL (32-36); Mean Corpuscular Hemoglobin 27 PG (27-34); Mean Platelet Volume 10.9 FL (9.6-12.0); Monocytes # 0.2 10*3/uL (0.11-0.8); Monocytes % 5.6 % (1.7-12.7); Neutrophils # 2.6 10*3/uL (1.4-7.4); Neutrophils % 63.5 % (38.7-73.9); Platelet Count 157 T/CUMM (130-400); Red Blood Count 3.21 MC/CUMM (3.8-5.5); Red Cell Distribution Width 16.6 % (9.3-17.3); White Blood Count 4.1 T/CUMM (4-12)
[2017-02-08 04:36] LABS: Hemoglobin 8.7 GM/DL (14.0-18.0)
[2017-02-08 04:57] LABS: Magnesium 1.7 MG/DL (1.8-2.4); Potassium 3.5 MMOL/L (3.5-5.1)
[2017-02-08 07:03] LABS: Eosinophils 6 % (0-10); Lymphocytes 28 % (20-55); Segmented Neutrophils 65 % (50-85); Total Cells Counted 100
--- NOTE | 2017-02-08 07:03 | Physician Query Form ---
CLICK EDIT DOCUMENT TO SELECT QUERY ANSWER --> OK --> SIGN Arinaa Wise RN, CCDS Certified Clinical Electronic Equipment Trades Worker W) [phone] (f) [phone] [email or web address] PROVIDERS: Make your selection(s) from the choices in EACH section by typing an "x" and enter comments in the comment section. Please use your independent medical judgment in providing your response. This request does not imply that any particular answer is desired or expected. CLINICAL INDICATORS: (Providers should not edit this section) Height: 69" Weight: 111 lbs Administrative Underwriter BMI: 16.5# Nutritional supplements: Head Of Product notes: Other clinical notes: The medical record indicates that the patient was admitted with upper GI bleeding, "He has had problems with malnutrition due to poor oral intake and has been on TPN in the past for this", "underweight", "well - developed", BMI of 16.5, Ht 69", Wt. 111 lbs and per dietary "TPN recs prepared if needed". ---- ---------also per dietary "chronic, low body weight, chart review" Based on the above, which following choice most accurately represents the patient's nutritional status? ( x) Malnutrition ( ) mild ( x) moderate ( ) severe ( ) Protein calorie malnutrition ( ) mild ( ) moderate ( ) severe ( ) Emaciation due to malnutrition ( ) Nutritional marasmus (x ) Cachexia ( ) Underweight ( ) No nutritional deficiency ( ) Other, please specify: ( ) Clinically unable to determine Mild Malnutrition (BMI < 18.5, % Normal Body Weight 85-95%) Moderate Malnutrition (BMI < 17, % Normal Body Weight 75-85%) Severe Malnutrition (BMI < 16, % Normal Body Weight < 75%) Source: [place] COMMENTS: PLEASE ALSO DOCUMENT RESPONSE IN PROGRESS NOTES AND/OR DISCHARGE SUMMARY Use of terms such as suspected, likely, or probable (associated with a specific diagnosis that is being evaluated, monitored, or treated as if it exists) are acceptable and can be restated in the discharge summary if not ruled out. MTDD
[2017-02-08 07:04] LABS: Hypochromasia 1+; Ovalocytes Slight; Platelet Estimate Normal
--- NOTE | 2017-02-08 07:04 | Physician Query Form ---
CLICK EDIT DOCUMENT TO SELECT QUERY ANSWER --> OK --> SIGN Ariana Wise RN, CCDS Certified Clinical Adjuster [employer] W) [phone] (f) [phone] [email or web address] PROVIDERS: Make your selection(s) from the choices in EACH section by typing an "x" and enter comments in the comment section. Please use your independent medical judgment in providing your response. This request does not imply that any particular answer is desired or expected. CLINICAL INDICATORS: (Providers should not edit this section) The medical record indicates that the patient was admitted with upper GI bleeding, large gastric ulcer on gastric side of GE junction with visible vessel-status post endoscopic clipping therapy. Based on the above, could you clarify the appropriate diagnosis, if significant , that supports the above abnormalities and additional evaluation, monitoring, and/or treatment rendered: (x ) above Gastric Ulcer mentioned is thought to be the source of the GI bleeding ( ) above Gastric Ulcer mentioned is not thought to be the source of the GI bleeding ( ) Other, please specify: ( ) Clinically unable to determine COMMENTS: PLEASE ALSO DOCUMENT RESPONSE IN PROGRESS NOTES AND/OR DISCHARGE SUMMARY Use of terms such as suspected, likely, or probable (associated with a specific diagnosis that is being evaluated, monitored, or treated as if it exists) are acceptable and can be restated in the discharge summary if not ruled out. MTDD
--- NOTE | 2017-02-08 08:43 | Gastrointestinal Progress Note ---
Assessment and Plan (1) Upper GI bleeding Status: Acute Assessment and plan: 02/08-tolerating clear liquid diet, no further hematemesis. Hemoglobin improved at 8.7 following 2 units of packed red blood cells on yesterday. No abdominal pain. Advance to full liquid diet. Plan an addendum followed by Dr. Berg. Current Visit: Yes Gastroenterology - PN: Subj Interval history: CC: Peptic ulcer Patient is seen awake and alert sitting up in chair. States he had an uneventful night. He denies any further abdominal pain, nausea or vomiting. He is tolerating his clear liquid diet well with good appetite. No further reports of hematemesis. His hemoglobin was noted to have dropped yesterday to 6.7 and was transfused 2 units packed red blood cells with hemoglobin now holding 8.7. Will advance diet today to full liquids and see how he tolerates. Abdomen is soft, nontender. Patient is very anxious to return back to work due to financial concerns. He is requesting to be discharged today. ROS: Denies shortness of breath or chest pain Exam (Progress Note) - Constitutional Vitals: Period Temp Pulse Resp BP Sys/Spicer Pulse Ox Last 24 Hr 97.8 F-99 F 64-78 16-20 111-127/61-85 94-99 General appearance: normal weight, no acute distress - Head Head exam: Present: normal inspection, normocephalic - Eye Eye exam: Present: other (Lids and conjunctive are unremarkable). Absent: scleral icterus - ENT ENT exam: Present: normal exam, normal oropharynx - Neck Neck exam: Present: normal inspection - Respiratory Respiratory exam: Present: clear to auscultation bilaterally. Absent: rales, rhonchi, wheezes - Cardiovascular Cardiovascular exam: Present: regular rate and rhythm. Absent: diastolic murmur , JVD, systolic murmur - GI/Abdominal GI/Abdominal exam: Present: normal bowel sounds, soft. Absent: ascites, distended, mass, organomegaly, tenderness - Extremities Exam Extremities exam: Present: normal inspection, full ROM - Back Exam Back exam: Present: normal inspection - Neurological Exam Neurological exam: Present: alert, oriented X3 - Psychiatric Psychiatric exam: Present: normal affect, normal mood - Skin Skin exam: Present: normal color, warm, dry Results - Labs CBC & BMP: 02/08/17 03:47 02/08/17 03:47 Lab Results: I have reviewed the past 24 hour labs
[2017-02-08] MEDS: METOCLOPRAMIDE 5 MG TABLET PO SCH ×3 (09:10→15:48)
[2017-02-08] MEDS: BACLOFEN 10 MG TABLET PO SCH ×2 (09:10→15:47)
[2017-02-08] MEDS: ISOSORBIDE MONONITRATE 30 MG TABLET PO SCH (09:10)
[2017-02-08] MEDS: METOPROLOL TARTRATE 25 MG TABLET PO SCH (09:11)
[2017-02-08] MEDS: ENOXAPARIN 40 MG/0.4 ML SYRINGE SUBCUT SCH (09:13)
[2017-02-08] MEDS: NITROGLYCERIN SL 0.4 MG TABLET SL SCH ×2 (09:13→16:13)
[2017-02-08] MEDS: PANTOPRAZOLE INJ 200 MG in SODIUM CHLORIDE 0.9% 250 ML IV SCH (11:35)
[2017-02-08 15:55] VITALS: BP 122/75
--- NOTE | 2017-02-08 17:02 | Discharge Summary ---
Hospital Course - Hospital Course Hospital Course: This is a 56 year old male with history of Heller myotomy, acid reflux, esophageal stricture, chronic pain, OA, smoking history, HTN, who presented to ER with severe anemia, GI bleed, nausea, vomiting, and was found to have gastric and esophageal ulcerations per EGD. He received 2 units pRBC and feels much better He will be discharged to home with PPi taken twice daily. Overall , he feels better and is ready for discharge. He will follow up with Dr. Berg in clinic. Diagnosis - Discharge Diagnosis (1) Anemia due to blood loss, acute Status: Acute (2) Epigastric pain Status: Acute (3) Nausea and vomiting Status: Acute (4) Upper GI bleeding Status: Acute (5) Hypertension Status: Chronic (6) Malnutrition Status: Chronic (7) Weight loss Status: Chronic Specialty Discharge - Follow Up or Referrals Follow up with: Claude Berg MD [Physician] - 04/12/17 10:15 am (for an EGD. Do not eat or drink anything after midnight and bring a driver/merchandiser.) Discharge Plan - Discharge Data Disposition: Disch To Home/Self Care Condition at Discharge: Stable Discharge Diet: other (full liquids and soft solids) Activity: increase activity as tolerated - Discharge Medications New Acetaminophen Tab [Tylenol Tab] 325 mg PO Q4H PRN tablet PRN Reason: fever, headache/body aches Isosorbide Mononitrate [Imdur] 15 mg PO DAILY #30 tablet Continue Nitroglycerin Sl Tab [Nitrostat] 0.4 mg SL TID Metoclopramide Tab [Reglan Tab] 5 mg PO TIDAC Baclofen Tab [Lioresal] 5 mg PO TID Metoprolol Tartrate Tab [Lopressor Tab] 25 mg PO DAILY Pantoprazole Tab [Protonix Tab] 40 mg PO DAILY #60 tablet HYDROcodone/ACETAMIN 7.5-325 [[place] 7.5-325] 1 tablet PO Q6H #14 tablet Sucralfate Liquid [Carafate Liquid] 1 gm NG Q6HR #30 udcup Discontinued Isosorbide Mononitrate [Imdur] 30 mg PO DAILY Omeprazole [Prilosec] 20 mg PO DAILY - Follow Up or Referral Follow Up: Claude Berg MD [Physician] - 04/12/17 10:15 am (for an EGD. Do not eat or drink anything after midnight and bring a driver/merchandiser.) Radha Ashby, [Primary Care Provider] - - Forms/Instructions Additional Discharge Instructions: Follow up with Dr. Berg in clinic per appointment set. Follow up with Dr. Raul Ashby in clinic within 1-2 weeks of discharge. Exam - Constitutional Vitals: Period Temp Pulse Resp BP Sys/Spicer Pulse Ox Last 24 Hr 97.8 F-99 F 64-73 16-20 106-126/61-75 94-99 General appearance: no acute distress - Head Head exam: Present: normocephalic - Eye Eye exam: Present: EOMI - Respiratory Respiratory exam: Present: clear to auscultation bilaterally. Absent: rales, rhonchi, wheezes - Cardiovascular Cardiovascular exam: Present: regular rate and rhythm - GI/Abdominal GI/Abdominal exam: Present: tenderness (mild epigastric pain), soft - Extremities Exam Extremities exam: Absent: edema - Neurological Exam Neurological exam: Present: alert, oriented X3 - Psychiatric Psychiatric exam: Present: normal mood - Skin Skin exam: Present: warm, dry Discharge Results Procedures and tests throughout hospitalization: Pending Orders 02/06/17 17:16 Helicobacter pylori Ag Feces Routine 02/09/17 04:00 BMP w/ Mg [Basic Metabolic Panel w/Mg] IN AM CBC [Comp Blood Count Auto Diff] IN AM Labs on day of discharge: Labs from last 24 hours 02/08/17 02/08/17 03:47 03:47 WBC 4.1 D RBC 3.21 L D Hgb 8.7 L D Hct 27.3 L MCV 85.0 L MCH 27 MCHC 31.9 L RDW 16.6 Plt Count 157 MPV 10.9 Neut % (Auto) 63.5 Lymph % (Auto) 26.3 [place] % (Auto) 5.6 Eos % (Auto) 3.4 Baso % (Auto) 0.7 Neut # (Auto) 2.6 Lymph # (Auto) 1.1 L [place] # (Auto) 0.2 Eos # (Auto) 0.1 Baso # (Auto) 0.0 Total Counted 100 Immature Gran % 0.5 Nucleated RBC % 0.0 Immature Gran # 0.02 Segmented Neutrophils 65 Lymphocytes 28 Monocytes 1 L Eosinophils 6 Nucleated RBCs # 0.00 Platelet Estimate Normal Hypochromasia 1+ Ovalocytes Slight Sodium 143 Potassium 3.5 Chloride 111 H Carbon Dioxide 22 Anion Gap 13.5 BUN 3 L Creatinine 0.60 L GFR Calculation 122 BUN/Creatinine Ratio 5.00 L Glucose 71 L Calculated Osmolality 279.0 Calcium 8.0 L Magnesium 1.7 L DS: Provider Date of admission: 02/05/17 23:50 Primary care physician: Radha Ashby DO Attending physician on admission: Radha Ashby DO Consults: 02/06/17 03:21 Consult to Physician [CONS] Routine Comment: persistent acid reflux/indigestion Consulting Provider: Claude Berg Person Notified: MD Bledsoe Date Notified: 02/06/17 Time Notified: 09:04 02/06/17 03:24 Consult to Physician [CONS] Routine Comment: nerve block for chronic abdominal pain Consulting Provider: Amaury Casas Person Notified: Kennedi Date Notified: 02/06/17 Time Notified: 08:33 02/06/17 06:39 Consult to Physician [CONS] Routine Comment: Consulting Provider: Patrick Epstein Consult to Specialist Group: Surgery When should Consulting Provider be notified: Now Person Notified: Dr. Epstein Date Notified: 02/06/17 Time Notified: 08:55 Discharging clinician: Radha Ashby DO Expected date of discharge: 02/08/17
--- NOTE | 2017-02-08 19:18 | Pathology Report from [facility] ---
[facility] ACCESSION # : [id number] PATIENT NAME : Bill Washington ORDERING DR : RAJWINDER ALMONTE MD CLINICAL HX: N/V POST-OP DX: Esophageal ulcers ? viral SPECIMEN INFO: Esophageal BX GROSS DESCRIPTION: Received in formalin labeled BILL WASHINGTON are multiple fragments of guajardo bro tissue measuring collectively 0.7 x 0.5 cm submitted in one cassette. DIAGNOSIS FOR BILL WASHINGTON: ESOPHAGEAL BIOPSY: Ulcerative esophagitis with squamous mucosal hyperplasia. Fungal stain positive. Herpes immunostain negative.This test was developed and its performance characteristics determined by [facility]. It has not been cleared or approved by the [place] FDA. The FDA has determined that such clearance or approval is not necessary. This test is used for clinical purposes. It should not be regarded as investigational or for research. This lab is certified as qualified to perform high complexity clinical laboratory testing under CLIA 1988. COLLECTED DATE: 02/06/2017 [facility] REPORT DATE: 02/08/2017 ELECTRONICALLY SIGNED BY: Elliot Montoya M.D. 02/08/2017 - 13:30:27 YARI
[2017-02-09] MEDS ORDERED: PANTOPRAZOLE 40 MG VIAL IV SCH (21:00)
--- NOTE | 2017-02-10 03:17 | Pathology Report from [facility] ---
[facility] ACCESSION # : [id number] PATIENT NAME : Bill Washington ORDERING DR : RAJWINDER ALMONTE MD CLINICAL HX: N/V POST-OP DX: Esophageal ulcers ? viral SPECIMEN INFO: Esophageal BX GROSS DESCRIPTION: Received in formalin labeled BILL WASHINGTON are multiple fragments of guajardo bro tissue measuring collectively 0.7 x 0.5 cm submitted in one cassette. DIAGNOSIS FOR BILL WASHINGTON: ESOPHAGEAL BIOPSY: Ulcerative esophagitis with squamous mucosal hyperplasia. Fungal stain positive. Herpes immunostain negative.This test was developed and its performance characteristics determined by [facility]. It has not been cleared or approved by the [place].S. FDA. The FDA has determined that such clearance or approval is not necessary. This test is used for clinical purposes. It should not be regarded as investigational or for research. This lab is certified as qualified to perform high complexity clinical laboratory testing under CLIA 1988. COLLECTED DATE: 02/06/2017 [facility] REPORT DATE: 02/08/2017 ELECTRONICALLY SIGNED BY: Elliot Montoya M.D. 02/08/2017 - 13:30:27 YARI
== END 2017-02-08 18:20 | disposition home or self-care (01) | DRG 378 ==
LOC: N.EDINP 19:43 → N.ED 19:43 → OBSVTOIN 23:50 → N.5E 02-06 00:42
PROVIDERS: ADMIT Internal Medicine; ATTEND Internal Medicine

== ENCOUNTER 2017-02-17 01:01 | Inpatient (IN) ==
[2017-02-17] MEDS ORDERED: ONDANSETRON 4 MG/2 ML VIAL IV STA (01:42)
[2017-02-17] MEDS ORDERED: SODIUM CHLORIDE 0.9% 500 ML IV STA (01:42)
[2017-02-17] MEDS ORDERED: PANTOPRAZOLE 40 MG VIAL IV STA (01:42)
[2017-02-17] MEDS ORDERED: ASPIRIN 325 MG TABLET PO STA (01:42)
[2017-02-17] MEDS ORDERED: NITROGLYCERIN 2% OINT 1 INCH/GM PACK TOP STA (01:42)
[2017-02-17] MEDS ORDERED: MORPHINE 2 MG/1 ML SYRINGE IV STA ×3 (01:42→03:38)
[2017-02-17] MEDS ORDERED: ALUM/MAG/SIMETH/LIDO VISC 1:1 30 ML BOTTLE PO STA (01:45)
[2017-02-17] MEDS ORDERED: PANTOPRAZOLE 40 MG VIAL IV ONE (01:45)
[2017-02-17] MEDS ORDERED: ALUM/MAG/SIMETH/LIDO VISC 1:1 30 ML BOTTLE PO ONE (01:46)
[2017-02-17] MEDS ORDERED: SUCRALFATE 1 GM/10 ML UDCUP PO ONE (01:47)
[2017-02-17] MEDS ORDERED: NITROGLYCERIN 2% OINT 1 INCH/GM PACK TOP ONE (01:53)
[2017-02-17] MEDS ORDERED: ONDANSETRON 4 MG/2 ML VIAL ONE (01:53)
[2017-02-17] MEDS ORDERED: ASPIRIN 325 MG TABLET ONE (01:54)
[2017-02-17] MEDS ORDERED: MORPHINE 2 MG/1 ML SYRINGE ONE ×3 (01:54→03:38)
[2017-02-17 02:15] LABS: PT Patient Result 10.2 SECS
--- NOTE | 2017-02-17 02:16 | EKG Report ---
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
[2017-02-17 02:22] LABS: Alanine Aminotransferase 23 U/L (16-61); Albumin 3.6 G/DL (3.4-5.0); Alkaline Phosphatase 117 U/L (45-117); Aspartate Amino Transferase 29 U/L (0-37); Bilirubin,Total < 0.39 MG/DL (0.2-1.0); Blood Urea Nitrogen 11 MG/DL (7-18); Calcium 8.6 MG/DL (8.5-10.1); Glucose 107 MG/DL (74-106); Magnesium 2.1 MG/DL (1.8-2.4); Osmolality,Calculated 281.1 MOS/KG (273-304); Potassium 4.1 MMOL/L (3.5-5.1); Sodium 142 MMOL/L (136-145); Total Protein 7.3 G/DL (6.4-8.3)
[2017-02-17 02:25] LABS: Basophils % 0.6 % (0.0-0.8); Eosinophils # 0.1 10*3/uL (0.0-0.87); Eosinophils % 1.1 % (0.00-10.9); Hematocrit 36.2 VOL% (42.0-52.0); Hemoglobin 11.6 GM/DL (14.0-18.0); Immature Granulocytes % 0.6 %; Immature Granulocytes Absolute 0.04 #; Mean Corpuscular Hemoglobin 28 PG (27-34); Mean Corpuscular Volume 85.8 FL (87-102); Mean Platelet Volume 10.5 FL (9.6-12.0); Monocytes # 0.6 10*3/uL (0.11-0.8); Monocytes % 8.4 % (1.7-12.7); Neutrophils # 4.5 10*3/uL (1.4-7.4); Neutrophils % 62.3 % (38.7-73.9); Platelet Count 342 T/CUMM (130-400); Red Blood Count 4.22 MC/CUMM (3.8-5.5); Red Cell Distribution Width 17.1 % (9.3-17.3); White Blood Count 7.3 T/CUMM (4-12)
[2017-02-17 02:33] LABS: Apearance,Urine CLEAR (Clear); Bilirubin,Urine Negative (Negative); Blood, Urine Negative (Negative); Glucose,Urine (UA) Negative (Negative); Hyaline Casts,Urine 1 /LPF (0-3); Ketones,Urine Negative (Negative); Mucus,Urine Occasional /LPF (Occasional); Nitrite,Urine Negative (Negative); Protein,Urine 30 MG/DL; RBC,Urine <1 /HPF (0-4); Urine Color Yellow (Yellow); Urine Specific Gravity 1.026 (1.001-1.035); Urine Urobilinogen < 2.0 EU/DL (0.2-1.0)
[2017-02-17 02:43] LABS: Barbiturates Screen,Urine Negative (Negative); Benzodiazepines Screen,Urine Negative (Negative); Cannabinoid Screen,Urine Negative (Negative); Opiate Screen,Urine Positive (Negative); Phencyclidine Screen,Urine Negative (Negative)
--- NOTE | 2017-02-17 03:38 | Emergency Department Note ---
Jenniffer Tavarez Emily, am scribing for, and in the presence of, Roger Walker MD 01: 56. Denise Tavarez Charles R, MD, personally performed the services described in this documentation, ascribed by Leila Abad in my presence, and it is both accurate and complete 338 . Arrival - Arrival Chief Complaint: Chest Pain Stated Complaint: chest pain and stomach pain ED Nursing Triage Note: patient c/o midsternal cp that radiates to left arm with nausea. Mode of Arrival: Ambulatory Limitations: No Limitations Source: Patient Time Seen by Provider: 02/17/17 01:22 - History of Present Illness HPI Narrative: Pt is a 56 y/o male who came to ED with c/o burning upper epigastric pain that has been ongoing for awhile. Pt has gastric and esophageal ulcers from previous visits in the past, in which last visit was on February 13 and left AMA. He states then he needed to go work. Pt states in ED now, that he couldn't even work past 4 days due to pain and it lasting from then. Pt's BP is 202/100 in ED. He denies drinking ETOH. Onset (ago): day(s) Consistency: constant Severity: moderate Severity scale (1-10): 7 Quality: aching Allergies/Adverse Reactions: Allergies Allergy/AdvReac Type Severity Reaction Status Date / Time No Known Allergies Allergy Verified 02/16/17 11:38 Home Medications: Home Medications Medication Instructions Recorded Confirmed Type Nitroglycerin Sl Tab [Nitrostat] 0.4 mg SL TID 02/19/15 02/17/17 History Baclofen Tab [Lioresal] 5 mg PO TID 03/18/16 02/17/17 History Metoclopramide Tab [Reglan Tab] 5 mg PO TIDAC 03/18/16 02/17/17 History Metoprolol Tartrate Tab [Lopressor 25 mg PO DAILY 07/06/16 02/17/17 History Tab] Isosorbide Mononitrate [Imdur] 15 mg PO DAILY #30 tablet 02/08/17 02/17/17 Rx Pantoprazole Tab [Protonix Tab] 40 mg PO DAILY #60 tablet 02/08/17 02/17/17 Rx Sucralfate Liquid [Carafate Liquid] 1 gm PO Q6HR 02/16/17 02/17/17 History Review of System - Review of System 12 point system: reviewed and no additional remarkable complaints except as stated - Review of System Constitutional: Absent: fever Respiratory: Absent: respiratory distress Cardiovascular: Present: chest pain (mid sternum burning). Absent: edema Gastrointestinal: Present: nausea. Absent: vomiting Musculoskeletal: Absent: arm pain, back pain Skin: Absent: rash Neurological: Absent: headache, abnormal gait Medical,Surgical,& Family Hx - Medical History Cardio: History of: CAD (prior CT), Hypertension, CT (04/17/2014), Cardiovascular Problems (Milk Drier Dr. Murphy) Psychological: History of: Anxiety Disorders, Depression Neurology: No history of: Seizures HEENT: History of: Eye Problem (Glasses), Dental Problems (Implants) Endocrine: No history of: Dyslipidemia Respiratory: History of: Respiratory Problems (chest tubes times 5, due to spontaneous pneumothoraxes) Comment Only: Pneumonia (Flu Vac Jun 2016; Unsure on Pneum Vac) Genitourinary: No history of: Kidney Stones Gastrointestinal: History of: GERD (DIFFICULTY SWALLOWING. REGURGITATE OFTEN.), Gastrointestinal Bleed (Bleeding Ulcer), GI Problems (has achalasia and esophageal strictures:h plylori;wt loss,Supp Tube Feeding) Musculoskeletal: History of: Back/Neck Problems (Steroid Injections; Pain Neck, Shoulder, Back Lt Rad down arm), Degenerative Disk Disease (Cervical) Hematology: History of: Anemia No history of: Blood Transfusion Reaction Reproductive: No histroy: Reproductive Cancer Other: No history of: Anesthesia Reactions, Cancer - Surgical History Cardiac Surgeries: Sugical HX of: Cardiac Catheterization (x2 Caths-No Stents) Thoracic Surgeries: Patient denies;: Organ Transplant HEENT Surgeries: Patient denies: Eye Surgery, Tonsilectomy & Adenoidectomy Abdominal Surgeries: Surgical HX of: Abdominal Surgery (J-Tube and removal of jtube in 2013), Colonoscopy, EGD (02/2015-Dilitation;Also history of Heler Myotomy; 12/2016) Patient denies: Appendectomy, Cholecystectomy Reproductive Surgeries: Patient denies;: Genitourinary Surgery, Vasectomy Orthopedic Surgeries: Patient denies;: Orthopedic Surgery, Spinal Surgery (01/01/[address] Casas;02/17/17 Sched for [facility]) - Family History Family History: Reports;: Family Cancer (Father), Family Diabetes (mom and 2 brothers), Family Hypertension (mom) Denies;: Family Heart Disease, Family Psychiatric Problems, Family Stroke - Social History Smoking Status: Current every day smoker Frequency of Alcohol Use: None Type of Drug Use: None Marital Status: Single Functional capacity: independent ambulation Exam Vital Signs: Vital Signs Temperature 98.4 F 02/17/17 01:03 Pulse Rate 82 02/17/17 01:03 Respiratory Rate 20 02/17/17 01:03 Blood Pressure 202/100 02/17/17 01:03 O2 Sat by Pulse Oximetry 98 02/17/17 01:03 - General General appearance: alert, in distress (secondary to pain), other (thin) - Head Head exam: Present: atraumatic, normocephalic - Eye Eye exam: Present: PERRL, EOMI - ENT ENT exam: Present: mucous membranes moist. Absent: mucous membranes dry - Neck Neck exam: Present: full ROM. Absent: tenderness - Chest Chest inspection: Present: symmetric chest wall rise, other (barrel chest). Absent: tenderness - Respiratory Respiratory exam: Present: rhonchi (bilateral). Absent: normal lung sounds bilaterally (decreased) - Cardiovascular Cardiovascular exam: Present: regular rate, normal rhythm, normal heart sounds - Abdominal Exam Abdominal exam: Present: soft, tenderness (upper epigastric tenderness). Absent : distention, guarding, rebound - Extremities Exam Extremities exam: Present: full ROM. Absent: tenderness, pedal edema - Neurological Exam Neurological exam: Present: alert, oriented X3, CN II-XII intact. Absent: motor sensory deficit - Psychiatric Psychiatric exam: Present: normal affect, normal mood - Skin Skin exam: Present: warm, dry Course - Consultations Consultation #1: Dr. Londono will admit for Dr. Ashby Time: 03:36 Results - Labs CBC & BMP: 02/17/17 01:21 02/17/17 01:21 Lab Results: I have reviewed the patients labs Labs: Laboratory Tests 02/17/17 02/17/17 01:21 01:21 Hgb 11.6 L Hct 36.2 L MCV 85.8 L Plt Count 342 D Glucose 107 H Globulin 3.7 H Albumin/Globulin Ratio 0.9 L Serum Alcohol < 15 L Laboratory Tests 07/14/17 07/14/17 01:21 01:21 Hgb 11.6 L Hct 36.2 L MCV 85.8 L Plt Count 342 D Lipase 209.0 D Laboratory Tests 02/17/17 02/17/17 01:21 02:21 Amylase 143 H Urine Color Yellow Urine Appearance Clear Urine pH 7.0 Ur Specific [place]ir 1.026 Urine Protein 30 Urine Blood Negative Urine Nitrate Negative Urine Urobilinogen < 2.0 H Urine Leukocytes Negative Urine RBC <1 Hyaline Casts 1 Urine Mucus Occasional Laboratory Tests 02/17/17 02:21 Urine Opiates Screen Positive H Laboratory Tests 02/17/17 01:21 B-Natriuretic Peptide 24 Disposition Clinical Impression: Chest pain, Dysphagia, Epigastric pain, Gastro-esophageal reflux, Nicotine dependence, cigarettes, uncomplicated, Gastroenteritis, Atypical chest pain, Abdominal pain, Chronic pain syndrome Case discussed with: patient Disposition: Still a Patient Condition: Stable Time of Disposition: 03:37
[2017-02-17] MEDS ORDERED: ALUMINUM/MAGNES/SIMETH MAX STR 30 ML UDCUP ONE (03:52)
[2017-02-17] MEDS ORDERED: ALUMINUM/MAGNES/SIMETH MAX STR 30 ML UDCUP PO STA (03:53)
[2017-02-17] MEDS ORDERED: ALBUTEROL/IPRATROPIUM 3 ML NEB RESP TX PRN (04:48)
[2017-02-17] MEDS ORDERED: ACETAMINOPHEN 325 MG TABLET PO PRN (04:48)
[2017-02-17] MEDS ORDERED: ONDANSETRON 4 MG/2 ML VIAL IV PRN (04:48)
[2017-02-17] MEDS: SODIUM CHLORIDE 0.9% 1,000 ML IV SCH ×3 (05:20→20:56)
[2017-02-17] MEDS: SUCRALFATE 1 GM/10 ML UDCUP PO SCH ×3 (05:25→18:09)
--- NOTE | 2017-02-17 05:35 | EKG Report ---
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
[2017-02-17] MEDS: methylPREDNISolone SOD SUC 40 MG/1 ML VIAL IV SCH ×3 (05:36→20:37)
[2017-02-17] MEDS ORDERED: NITROGLYCERIN 2% OINT 1 INCH/GM PACK TOP SCH (06:00)
--- NOTE | 2017-02-17 06:57 | XRay Report ---
2 view abdomen. Indication: Epigastric pain. There is no distention of bowel. Scattered air-fluid levels. No free air. No organomegaly. Unremarkable osseous structures. Impression: Scattered nonspecific air-fluid levels. PROCEDURE INTERPRETED AT [facility] DEPARTMENT OF RADIOLOGY Final Report Signed by: Dr. Georgia Hansen
[2017-02-17] MEDS: METOCLOPRAMIDE 5 MG TABLET PO SCH ×3 (07:26→16:05)
--- NOTE | 2017-02-17 07:38 | Event Note ---
56 yo male known to me with neck pain, arm pain, epigastric pain. He was scheduled for a cervical injection today, but will cancel case due to admit for GI bleed/ulcers. He has significant GI pain that i do not think will respond halfway to a splanchnic nerve block; but rather needs to be treated at its source. He has been very difficult to treat in that he has real pain, real pathology, but has been non compliant with his treatment plan. We have stopped writing opioids for him due to his inability to take his meds as prescribed.
--- NOTE | 2017-02-17 07:38 | XRay Report ---
Exam: XR chest 1V portable Date: 02/17/2017 1:44 AM Indication: Chest pain Comparison: 02/13/2017 Technical: AP Findings: Mild cardiac prominence. Reticular nodular densities are present bilaterally. Some scarring present in the right lateral and left lateral midlung zone and perihilar regions. External cardiac leads are present. Mediastinum is intact. No pneumothorax. Impression: 1. Component of underlying mild COPD with fibrotic scarring suspected and granuloma changes. PROCEDURE INTERPRETED AT [facility] DEPARTMENT OF RADIOLOGY Final Report Signed by: Dr. Claude Dee
--- NOTE | 2017-02-17 07:54 | EKG Report ---
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
[2017-02-17] MEDS: BACLOFEN 10 MG TABLET PO SCH ×3 (08:52→20:36)
[2017-02-17] MEDS: DOCUSATE SODIUM 100 MG CAPSULE PO SCH ×2 (08:53→20:39)
[2017-02-17] MEDS: ISOSORBIDE MONONITRATE 30 MG TABLET PO SCH (08:53)
[2017-02-17] MEDS: PANTOPRAZOLE 40 MG TABLET PO SCH (08:54)
[2017-02-17] MEDS: METOPROLOL TARTRATE 25 MG TABLET PO SCH (08:54)
[2017-02-17] MEDS: NITROGLYCERIN SL 0.4 MG TABLET SL SCH ×3 (08:54→20:39)
[2017-02-17] MEDS: MORPHINE 2 MG/1 ML SYRINGE IV PRN ×2 (08:58→14:40)
[2017-02-17] MEDS ORDERED: PANTOPRAZOLE 40 MG VIAL IV SCH (09:00)
[2017-02-17] MEDS: ALUM/MAG/SIMETH/LIDO VISC 1:1 30 ML BOTTLE PO PRN ×2 (12:10→20:40)
--- NOTE | 2017-02-17 15:11 | Internal Med History&Physical ---
Assessment and Plan (1) Epigastric pain Problem details: Worsening epigastric pain Status: Chronic Current Visit: Yes (2) GERD (gastroesophageal reflux disease) Status: Chronic Current Visit: Yes Qualifiers: Esophagitis presence: with esophagitis Qualified Code(s): K21.0 - Gastro- esophageal reflux disease with esophagitis (3) Chronic pain syndrome Status: Chronic Current Visit: Yes (4) Cervical radiculopathy Status: Chronic Current Visit: No (5) Hypertension Status: Chronic Current Visit: Yes Qualifiers: Hypertension type: essential hypertension Qualified Code(s): I10 - Essential (primary) hypertension (6) Malnutrition Status: Chronic Current Visit: Yes History of Present Illness Chief complaint: burning abdominal pain History of present illness: Mr. Zarate is a 56 year old male with history of chronic epigastric issues to include current esophageal and gastric ulcerations, history of H pylori, acid reflux, repeat EGD, esophageal stricture with dilatation, history of Heller myotomy; pneumonia, recurrent spontaneous pneumothorax, HTN, CAD, [place], anemia iron deficiency and blood loss, blood transfusions, OA with chronic degenerative disc disease, who presented to ER with burning epigastric pain. He was in ER a few days ago and was admitted to hospital, but left AMA. He will be continued on Carafate and GI cocktail has been ordered. Full liquid diet. Home Medications Medication Instructions Recorded Confirmed Type Nitroglycerin Sl Tab [Nitrostat] 0.4 mg SL TID 02/19/15 02/17/17 History Baclofen Tab [Lioresal] 5 mg PO TID 03/18/16 02/17/17 History Metoclopramide Tab [Reglan Tab] 5 mg PO TIDAC 03/18/16 02/17/17 History Metoprolol Tartrate Tab [Lopressor 25 mg PO DAILY 07/06/16 02/17/17 History Tab] Isosorbide Mononitrate [Imdur] 15 mg PO DAILY #30 tablet 02/08/17 02/17/17 Rx Pantoprazole Tab [Protonix Tab] 40 mg PO DAILY #60 tablet 02/08/17 02/17/17 Rx Sucralfate Liquid [Carafate Liquid] 1 gm PO Q6HR 02/16/17 02/17/17 History Allergies Allergy/AdvReac Type Severity Reaction Status Date / Time No Known Allergies Allergy Verified 02/16/17 11:38 Medical,Surgical,& Family Hx - Medical History Cardio: History of: CAD (prior [place]), Hypertension, [place] (04/17/2014), 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 REGURGITATE OFTEN.), Gastrointestinal Bleed (Bleeding Ulcer), GI Problems (has achalasia and esophageal strictures:kenny cunningham;wt loss,Supp Tube Feeding) Musculoskeletal: History of: Back/Neck Problems (Steroid Injections; Pain Neck, Shoulder, Back Lt Rad down arm), Degenerative Disk Disease (Cervical) Hematology: History of: Anemia No history of: Blood Transfusion Reaction Reproductive: No histroy: Reproductive Cancer Other: No history of: Anesthesia Reactions, Cancer - Surgical History Cardiac Surgeries: Sugical HX of: Cardiac Catheterization (x2 Caths-No Stents) Thoracic Surgeries: Patient denies;: Organ Transplant HEENT Surgeries: Patient denies: Eye Surgery, Tonsilectomy & Adenoidectomy Abdominal Surgeries: Surgical HX of: Abdominal Surgery (J-Tube and removal of jtube in 2013), Colonoscopy, EGD (02/2015-Dilitation;Also history of Heler Myotomy; 12/2016) Patient denies: Appendectomy, Cholecystectomy Reproductive Surgeries: Patient denies;: Genitourinary Surgery, Vasectomy Orthopedic Surgeries: Patient denies;: Orthopedic Surgery, Spinal Surgery (01/01/[address] Casas;02/17/17 Sched for [facility]) - Family History Family History: Reports;: Family Cancer (Father), Family Diabetes (mom and 2 brothers), Family Hypertension (mom) Denies;: Family Heart Disease, Family Psychiatric Problems, Family Stroke - Social History Smoking Status: Current every day smoker Frequency of Alcohol Use: None Type of Drug Use: None Marital Status: Lives With:: Spouse Functional capacity: independent ambulation - Constitutional Constitutional: Present: fatigue, weakness - Gastrointestinal Gastrointestinal: Present: abdominal pain, dyspepsia, heartburn Exam - Constitutional Vitals: Period Temp Pulse Resp BP Sys/Spicer Pulse Ox Last 24 Hr 98 F-98.7 F 58-82 18-20 124-202/71-100 96-99 General appearance: no acute distress - Head Head exam: Present: normocephalic - Eye Eye exam: Present: EOMI - Respiratory Respiratory exam: Present: clear to auscultation bilaterally. Absent: rales, rhonchi, wheezes - Cardiovascular Cardiovascular exam: Present: regular rate and rhythm - GI/Abdominal GI/Abdominal exam: Present: tenderness (epigastric), soft - Extremities Exam Extremities exam: Absent: edema - Neurological Exam Neurological exam: Present: alert, oriented X3 - Psychiatric Psychiatric exam: Present: normal mood - Skin Skin exam: Present: warm, dry Results - Labs CBC & BMP: 02/17/17 01:21 02/17/17 01:21 - EKG EKG shows: sinus rhythm - Diagnostic Findings Procedure: Abdominal x-ray: report reviewed by me, Chest x-ray: report reviewed by me
--- NOTE | 2017-02-17 17:21 | Pain Management Consult Note ---
Assessment and Plan (1) Cervical spondylosis Problem details: Left-sided neck pain with a left sided arm pain Status: Acute Assessment and plan: The patient has known cervical spondylosis with left-sided cervical radiculopathy. He was scheduled to have a cervical epidural steroid injection to address this. We have attempted to treat him medically, however he has been noncompliant with opioids so we no longer writing these for him. At some point after discharge will reschedule cervical epidural steroid injection. Current Visit: No Qualifiers: Spinal osteoarthritis complication: with radiculopathy Qualified Code(s): M47.22 - Other spondylosis with radiculopathy, cervical region (2) Epigastric pain Problem details: Worsening epigastric pain Status: Chronic Assessment and plan: The patient's epigastric pain has improved. After careful review and consideration I am doubtful that a splenic nerve block will provide him long- term relief. I do think the best course for him is to have the gastric pathology heal. Again with ongoing gastric pathology on doubtful that a temporary block will provide him any meaningful long-term relief. Current Visit: Yes History of Present Illness Chief complaint: Left neck pain History of present illness: Mr. Zarate is a 56 year old male admitted from the ER with left-sided epigastric and chest pain. This pain has resolved for the most part. His worst pain continues to be at this time left neck shoulder into the arm. Home Medications Medication Instructions Recorded Confirmed Type Nitroglycerin Sl Tab [Nitrostat] 0.4 mg SL TID 02/19/15 02/17/17 History Baclofen Tab [Lioresal] 5 mg PO TID 03/18/16 02/17/17 History Metoclopramide Tab [Reglan Tab] 5 mg PO TIDAC 03/18/16 02/17/17 History Metoprolol Tartrate Tab [Lopressor 25 mg PO DAILY 07/06/16 02/17/17 History Tab] Isosorbide Mononitrate [Imdur] 15 mg PO DAILY #30 tablet 02/08/17 02/17/17 Rx Pantoprazole Tab [Protonix Tab] 40 mg PO DAILY #60 tablet 02/08/17 02/17/17 Rx Sucralfate Liquid [Carafate Liquid] 1 gm PO Q6HR 02/16/17 02/17/17 History Allergies Allergy/AdvReac Type Severity Reaction Status Date / Time No Known Allergies Allergy Verified 02/16/17 11:38 Medical,Surgical,& Family Hx - Medical History Cardio: History of: CAD (prior [place]), Hy[place]ension, [place] (04/17/2014), 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 REGURGITATE OFTEN.), Gastrointestinal Bleed (Bleeding Ulcer), GI Problems (has achalasia and esophageal strictures:kenny cunningham;wt loss,Supp Tube Feeding) Musculoskeletal: History of: Back/Neck Problems (Steroid Injections; Pain Neck, Shoulder, Back Lt Rad down arm), Degenerative Disk Disease (Cervical) Hematology: History of: Anemia No history of: Blood Transfusion Reaction Reproductive: No histroy: Reproductive Cancer Other: No history of: Anesthesia Reactions, Cancer - Surgical History Cardiac Surgeries: Sugical HX of: Cardiac Catheterization (x2 Caths-No Stents) Thoracic Surgeries: Patient denies;: Organ Transplant HEENT Surgeries: Patient denies: Eye Surgery, Tonsilectomy & Adenoidectomy Abdominal Surgeries: Surgical HX of: Abdominal Surgery (J-Tube and removal of jtube in 2013), Colonoscopy, EGD (02/2015-[place];Also history of Heler Myotomy; 12/2016) Patient denies: Appendectomy, Cholecystectomy Reproductive Surgeries: Patient denies;: Genitourinary Surgery, Vasectomy Orthopedic Surgeries: Patient denies;: Orthopedic Surgery, Spinal Surgery (01/01/[address] Casas;02/17/17 Sched for [facility]) - Family History Family History: Reports;: Family Cancer (Father), Family Diabetes (mom and 2 brothers), Family Hypertension (mom) Denies;: Family Heart Disease, Family Psychiatric Problems, Family Stroke - Social History Smoking Status: Current every day smoker Frequency of Alcohol Use: None Type of Drug Use: None - Constitutional Constitutional: Present: anorexia, fatigue - Musculoskeletal Musculoskeletal: Present: back pain (With neck pain) - Neurological Neurological: Present: numbness, paresthesias (Left upper extremity) Exam - Constitutional Vitals: Period Temp Pulse Resp BP Sys/Spicer Pulse Ox Last 24 Hr 98 F-98.7 F 58-82 18-20 124-202/71-100 96-99 General appearance: under weight - Eye Eye exam: Present: EOMI - Neck Neck exam: Present: tenderness (Left sided) - Respiratory Respiratory exam: Present: clear to auscultation bilaterally - Cardiovascular Cardiovascular exam: Present: RRR - GI/Abdominal GI/Abdominal exam: Present: soft - Back Exam Back exam: Present: vertebral tenderness (Left cervical spine) - Neurological Exam Neurological exam: Present: alert, oriented X3, motor sensory deficit (Left C5- 6 dermatome) Results - Labs CBC & BMP: 02/17/17 01:21 02/17/17 01:21
[2017-02-18] MEDS: SUCRALFATE 1 GM/10 ML UDCUP PO SCH ×3 (00:03→12:03)
[2017-02-18 04:47] LABS: Basophils % 0.1 % (0.0-0.8); Eosinophils % 0.1 % (0.00-10.9); Hematocrit 29.4 VOL% (42.0-52.0); Hemoglobin 9.3 GM/DL (14.0-18.0); Immature Granulocytes % 0.3 %; Immature Granulocytes Absolute 0.02 #; Lymphocytes # 0.8 10*3/uL (1.4-4.0); Mean Corpuscular HGB Conc 31.6 GM/DL (32-36); Mean Corpuscular Hemoglobin 27 PG (27-34); Mean Platelet Volume 10.5 FL (9.6-12.0); Monocytes # 0.4 10*3/uL (0.11-0.8); Monocytes % 5.8 % (1.7-12.7); Neutrophils # 5.7 10*3/uL (1.4-7.4); Neutrophils % 81.7 % (38.7-73.9); Platelet Count 290 T/CUMM (130-400); Red Blood Count 3.46 MC/CUMM (3.8-5.5); Red Cell Distribution Width 17.1 % (9.3-17.3); White Blood Count 6.9 T/CUMM (4-12)
[2017-02-18] MEDS: SODIUM CHLORIDE 0.9% 1,000 ML IV SCH ×2 (05:08→12:02)
[2017-02-18 05:42] LABS: Alanine Aminotransferase 19 U/L (16-61); Albumin 2.7 G/DL (3.4-5.0); Alkaline Phosphatase 89 U/L (45-117); Aspartate Amino Transferase 15 U/L (0-37); Bilirubin,Total < 0.39 MG/DL (0.2-1.0); Blood Urea Nitrogen 5 MG/DL (7-18); Calcium 8.1 MG/DL (8.5-10.1); Cholesterol 157 MG/DL (50-200); Glucose 115 MG/DL (74-106); HDL Cholesterol 74 MG/DL (40-60); Osmolality,Calculated 276.4 MOS/KG (273-304); Potassium 4.4 MMOL/L (3.5-5.1); Risk Ratio 2.12; Sodium 140 MMOL/L (136-145); Total Protein 5.5 G/DL (6.4-8.3); Triglycerides 50 MG/DL (2-150)
[2017-02-18] MEDS: methylPREDNISolone SOD SUC 40 MG/1 ML VIAL IV SCH ×2 (06:24→12:04)
[2017-02-18] MEDS: BACLOFEN 10 MG TABLET PO SCH (08:29)
[2017-02-18] MEDS: ISOSORBIDE MONONITRATE 30 MG TABLET PO SCH (08:30)
[2017-02-18] MEDS: METOPROLOL TARTRATE 25 MG TABLET PO SCH (08:31)
[2017-02-18] MEDS: DOCUSATE SODIUM 100 MG CAPSULE PO SCH (08:31)
[2017-02-18] MEDS: METOCLOPRAMIDE 5 MG TABLET PO SCH ×2 (08:31→12:03)
[2017-02-18] MEDS: PANTOPRAZOLE 40 MG TABLET PO SCH (08:32)
[2017-02-18] MEDS: NITROGLYCERIN SL 0.4 MG TABLET SL SCH (08:32)
--- NOTE | 2017-02-18 09:04 | XRay Report ---
XR chest 2V Indication: Shortness of breath. Chest 2 views: Comparison yesterday shows slight improvement in interstitial prominence of the lungs. There is still persistent scarring and hyperinflation noted. No new infiltrates. Borderline cardiomegaly stable. Impression: Slight decreased interstitial prominence of the lungs. Underlying COPD. PROCEDURE INTERPRETED AT [facility] DEPARTMENT OF RADIOLOGY Final Report Signed by: Orlando White M.D.
--- NOTE | 2017-02-18 09:07 | XRay Report ---
XR abdomen 1V Indication: Abdominal pain. Abdomen one view: No small bowel dilatation. Normal amount of stool and gas projects over the colon, without dilatation. No evidence of free air. No abnormal calcifications or masses. Anastomotic suture line identified left mid abdomen. Impression: Negative bowel gas pattern. PROCEDURE INTERPRETED AT [facility] DEPARTMENT OF RADIOLOGY Final Report Signed by: Orlando White M.D.
[2017-02-18] MEDS: ALUM/MAG/SIMETH/LIDO VISC 1:1 30 ML BOTTLE PO PRN (10:28)
--- NOTE | 2017-02-18 11:34 | Gastrointestinal Consult Note ---
Assessment and Plan (1) Esophageal ulcer with bleeding Status: Acute Assessment and plan: THIS IS A PATIENT OF DR. BERG'S HE WILL CONTINUE TO FOLLOW WITH HIM AN OUTPATIENT. This patient has a history of achalasia and has recently been diagnosed with ulcers that are positive for fungus. He has been taking his Protonix but should likely be taking this twice daily for best effect. He has required dilation in the past but did not require this during his most recent evaluation on 02/06/17. He had some atypical chest pain upon his admission but this should be controlled with the acid blocking medication given. He states that as long as he gets some of the GI cocktail from time to time the atypical chest pain is much improved as well. We will give him prescription for some viscous lidocaine that he can use sparingly. Typically a pharmacy mixes this [id number] with Mylanta but I will let him make the cocktail at home on his own. I will give him a prescription for treatment of this fungal esophagitis, perhaps this will help as well. Current Visit: Yes (2) Achalasia Status: Acute Assessment and plan: The patient is following with Dr. Berg for this condition. He may require dilation again in the future and so will be following up with Dr. Berg's office. Current Visit: Yes (3) Lisbeth esophagitis Status: Acute Current Visit: Yes (4) Gastric ulcer with hemorrhage Status: Acute Assessment and plan: Patient's hematocrit is actually fairly stable, again I would increase his pantoprazole 40 mg twice daily and a prescription has been written for this for use at home. He seems stable from my standpoint will sign off the case at this time. He will be following up with Dr. Berg in the future as per his last visit. Current Visit: Yes History of Present Illness Chief complaint: Ongoing atypical chest pain from esophageal ulcer, gastric ulcer History of present illness: Mr. Zarate is a 56 year old male This patient had previously had a GI consultation as recently as 02/06/[address] Berg. He performed a upper endoscopy on 02/06/17 which demonstrated a large gastric ulcer on the gastric side of the EG junction which required Endo Clip placement due to visible vessel. There are also multiple esophageal ulcers that were thought to be perhaps a viral as well as a dilated esophagus that was thought secondary to the patient's history of achalasia and portal hypertensive gastropathy. He was placed on high-dose proton pump inhibition and observed the biopsies taken from his esophagus failed to show any viral inclusion bodies and were the ulcers present were not thought to be due to HSV or CMV. The patient's esophagus was positive for fungal elements. The patient was followed up until 02/08/17 after being transfused and he was advanced to full liquid diet and was allowed to return to work because of financial concerns. He was discharged with twice a day proton pump inhibition and was to follow-up with Dr. Berg in clinic. Unfortunately he represented to the emergency room for readmission due to epigastric tenderness on 02/17/17 with improvement in the patient's hematocrit from 33% upon discharge on 02/13/17 up to 36.2% as of 02/17/17. Pain management has been consulted--the do not recommend a celiac nerve block but rather to allow the gastric ulcer and esophageal ulcerations to heal over time. Apparently his pain in his left neck and shoulder seem to be his most severe complaints at this time. Looking the patient's home medications it does not appear that he was given a twice daily Protonix prescription but rather just daily, this was verified with the patient. He appears to be off of anti- inflammatory agents. He has had a long-standing history of achalasia and is actually undergone Heller myotomy in the past, this is required for recurrent stricture dilation at the EG junction. Patient continues to have malnutrition and has been on TPN for this in the past. He denies recent hematemesis as well as black stools or bright red blood per rectum. Home Medications Medication Instructions Recorded Confirmed Type Nitroglycerin Sl Tab [Nitrostat] 0.4 mg SL TID 02/19/15 02/17/17 History Baclofen Tab [Lioresal] 5 mg PO TID 03/18/16 02/17/17 History Metoclopramide Tab [Reglan Tab] 5 mg PO TIDAC 03/18/16 02/17/17 History Metoprolol Tartrate Tab [Lopressor 25 mg PO DAILY 07/06/16 02/17/17 History Tab] Isosorbide Mononitrate [Imdur] 15 mg PO DAILY #30 tablet 02/08/17 02/17/17 Rx Pantoprazole Tab [Protonix Tab] 40 mg PO DAILY #60 tablet 02/08/17 02/17/17 Rx Sucralfate Liquid [Carafate Liquid] 1 gm PO Q6HR 02/16/17 02/17/17 History Allergies Allergy/AdvReac Type Severity Reaction Status Date / Time No Known Allergies Allergy Verified 02/16/17 11:38 Medical,Surgical,& Family Hx - Medical History Cardio: History of: CAD (prior [place]), Hypertension, [place] (04/17/2014), Cardiovascular Problems ([employer] Dr. Murphy) Psychological: History of: Anxiety Disorders, Depression Neurology: No history of: Seizures HEENT: History of: Eye Problem (Glasses), Dental Problems (Implants) Endocrine: No history of: Dyslipidemia Respiratory: History of: Respiratory Problems (chest tubes times 5, due to spontaneous pneumothoraxes) Comment Only: Pneumonia (Flu Vac Jun 2016; Unsure on Pneum Vac) Genitourinary: No history of: Kidney Stones Gastrointestinal: History of: GERD (DIFFICULTY SWALLOWING. REGURGITATE OFTEN.), Gastrointestinal Bleed (Bleeding Ulcer), GI Problems (has achalasia and esophageal strictures:kenny cunningham;wt loss,Supp Tube Feeding) Musculoskeletal: History of: Back/Neck Problems (Steroid Injections; Pain Neck, Shoulder, Back Lt Rad down arm), Degenerative Disk Disease (Cervical) Hematology: History of: Anemia No history of: Blood Transfusion Reaction Reproductive: No histroy: Reproductive Cancer Other: No history of: Anesthesia Reactions, Cancer - Surgical History Cardiac Surgeries: Sugical HX of: Cardiac Catheterization (x2 Caths-No Stents) Thoracic Surgeries: Patient denies;: Organ Transplant HEENT Surgeries: Patient denies: Eye Surgery, Tonsilectomy & Adenoidectomy Abdominal Surgeries: Surgical HX of: Abdominal Surgery (J-Tube and removal of jtube in 2013), Colonoscopy, EGD (02/2015-Dilitation;Also history of Heler Myotomy; 12/2016) Patient denies: Appendectomy, Cholecystectomy Reproductive Surgeries: Patient denies;: Genitourinary Surgery, Vasectomy Orthopedic Surgeries: Patient denies;: Orthopedic Surgery, Spinal Surgery (01/01/[address] Casas;02/17/17 Sched for [facility]) - Family History Family History: Reports;: Family Cancer (Father), Family Diabetes (mom and 2 brothers), Family Hypertension (mom) Denies;: Family Heart Disease, Family Psychiatric Problems, Family Stroke - Social History Smoking Status: Current every day smoker Frequency of Alcohol Use: None Type of Drug Use: None Exam - Constitutional Vitals: Period Temp Pulse Resp BP Sys/Spicer Pulse Ox Last 24 Hr 97.8 F-98.5 F 58-81 16-18 112-134/56-80 94-100 Results - Labs CBC & BMP: 02/18/17 03:53 02/18/17 03:53
[2017-02-18 12:00] VITALS: BP 114/59
--- NOTE | 2017-02-18 13:34 | Discharge Summary ---
Hospital Course - Hospital Course Hospital Course: History of present illness: Mr. Zarate is a 56 year old male with history of chronic epigastric issues to include current esophageal and gastric ulcerations, history of H pylori, acid reflux, repeat EGD, esophageal stricture with dilatation, history of Heller myotomy; pneumonia, recurrent spontaneous pneumothorax, HTN, CAD, [place], anemia iron deficiency and blood loss, blood transfusions, OA with chronic degenerative disc disease, who presented to ER with burning epigastric pain. He was in ER a few days ago and was admitted to hospital, but left AMA. DISCHARGE SUMMARY -patient was admitted to the hospital complaining of chest pain. He has had a recent EGD which revealed esophageal and gastric ulcerations. His pain was felt to be more GI and not cardiac in etiology. Patient obtains complete relief of pain with GI cocktail. Patient was evaluated by Dr. Rice this a.m. and he feels that he can be discharged to home care. He has written prescriptions for GI cocktail as well as antifungal agent. He is also increased his protein pump inhibitor to twice daily. Patient is comfortable with this and is ready for discharge. I have discussed findings in detail with patient. I have advised patient to contact Dr. Ashby on Monday to arrange for follow-up appointment. We will have him call or return to the emergency room if condition worsens or new problems develop Diagnosis - Discharge Diagnosis (1) Atypical chest pain Status: Acute (2) Gastric and esophageal ulcers Status: Acute (3) Lisbeth esophagitis Status: Acute Discharge Plan - Discharge Data Disposition: Disch To Home/Self Care Condition at Discharge: Stable Discharge Diet: advance to your usual diet Activity: resume usual activities as tolerated Weight Bearing at Discharge: full weight bearing Driving: no restrictions Contact your physician if you experience:: fever over 101, Bleeding - Discharge Medications No Action Nitroglycerin Sl Tab [Nitrostat] 0.4 mg SL TID Metoclopramide Tab [Reglan Tab] 5 mg PO TIDAC Baclofen Tab [Lioresal] 5 mg PO TID Metoprolol Tartrate Tab [Lopressor Tab] 25 mg PO DAILY Isosorbide Mononitrate [Imdur] 15 mg PO DAILY #30 tablet Pantoprazole Tab [Protonix Tab] 40 mg PO DAILY #60 tablet Sucralfate Liquid [Carafate Liquid] 1 gm PO Q6HR - Follow Up or Referral Follow Up: Radha Ashby DO [Primary Care Provider] - (Patient is to call clinic on Monday and set up follow-up appointment) - Forms/Instructions Additional Discharge Instructions: Dr. Rice has written prescriptions for GI cocktail, antifungal agent, and has increased protein pump inhibitor to twice daily. Exam - Constitutional Vitals: Period Temp Pulse Resp BP Sys/Spicer Pulse Ox Last 24 Hr 97.8 F-99.3 F 60-81 16-18 112-134/56-80 94-100 General appearance: no acute distress - Head Head exam: Present: normal inspection - Eye Pupils: Present: YARELI - ENT ENT exam: Present: normal exam - Neck Neck exam: Present: normal inspection - Respiratory Respiratory exam: Present: clear to auscultation bilaterally - Cardiovascular Cardiovascular exam: Present: regular rate and rhythm - GI/Abdominal GI/Abdominal exam: Present: normal bowel sounds, soft - Extremities Exam Extremities exam: Present: normal inspection - Back Exam Back exam: Present: normal inspection - Neurological Exam Neurological exam: Present: alert, oriented X3 - Psychiatric Psychiatric exam: Present: normal affect - Skin Skin exam: Present: normal color Discharge Results Labs on day of discharge: Labs from last 24 hours 02/18/17 02/18/17 02/18/17 03:53 03:53 03:53 WBC 6.9 RBC 3.46 L Hgb 9.3 L D Hct 29.4 L MCV 85.0 L MCH 27 MCHC 31.6 L RDW 17.1 Plt Count 290 MPV 10.5 Neut % (Auto) 81.7 H Lymph % (Auto) 12.0 L Marin % (Auto) 5.8 Eos % (Auto) 0.1 Baso % (Auto) 0.1 Neut # (Auto) 5.7 Lymph # (Auto) 0.8 L Marin # (Auto) 0.4 Eos # (Auto) 0.0 Baso # (Auto) 0.0 Immature Gran % 0.3 Nucleated RBC % 0.0 Immature Gran # 0.02 Nucleated RBCs # 0.00 Sodium 140 Potassium 4.4 Chloride 108 H Carbon Dioxide 25 Anion Gap 11.4 BUN 5 L Creatinine 0.70 GFR Calculation 118 BUN/Creatinine Ratio 7.00 Glucose 115 H Calculated Osmolality 276.4 Calcium 8.1 L Magnesium 2.0 Total Bilirubin < 0.39 AST 15 ALT 19 Alkaline Phosphatase 89 B-Natriuretic Peptide 192 H Total Protein 5.5 L Albumin 2.7 L Globulin 2.8 Albumin/Globulin Ratio 0.9 L Triglycerides 50 Cholesterol 157 LDL Cholesterol 68.0 VLDL Cholesterol 10.0 HDL Cholesterol 74 H Heart Disease Risk Ratio 2.12 DS: Provider Date of admission: 02/17/17 03:40 Primary care physician: Radha Ashby DO Attending physician on admission: Radha Ashby DO Consults: 02/17/17 04:48 Consult to Case Mgmt/Social Srvs [CONS] Routine Reason for Case Mgmt/Social Srvs: Discharge Planning Consult to Physician [CONS] Routine Comment: gastric ulcer/esophagitis Consulting Provider: Claude Berg When should Consulting Provider be notified: In am Consult to Specialist Group: Gastroenterology Person Notified: TK Date Notified: 02/17/17 Time Notified: 07:50 02/17/17 11:45 Consult to Physician [CONS] Routine Comment: Consulting Provider: Amaury Casas Consult to Specialist Group: Pain Management Person Notified: claire Date Notified: 02/17/17 Time Notified: 12:00 Discharging clinician: Marty Rand DO
== END 2017-02-18 14:11 | disposition home or self-care (01) | DRG 378 ==
LOC: N.ED 01:01 → N.EDINP 03:40 → N.TELEN 04:07
PROVIDERS: ADMIT Internal Medicine; ATTEND Internal Medicine

== ENCOUNTER 2017-06-09 15:37 | Inpatient (IN) ==
[2017-06-09] MEDS ORDERED: ASPIRIN 325 MG TABLET PO STA ×2 (15:50→16:28)
[2017-06-09] MEDS ORDERED: ASPIRIN 325 MG TABLET ONE (16:12)
[2017-06-09] MEDS ORDERED: ONDANSETRON 4 MG/2 ML VIAL IV STA (16:28)
[2017-06-09] MEDS ORDERED: MORPHINE 2 MG/1 ML SYRINGE IV STA ×2 (16:28→17:48)
[2017-06-09] MEDS ORDERED: NITROGLYCERIN 2% OINT 1 INCH/GM PACK TOP STA (16:28)
[2017-06-09] MEDS ORDERED: NITROGLYCERIN SL 0.4 MG TABLET SL PRN (16:28)
[2017-06-09] MEDS ORDERED: MORPHINE 2 MG/1 ML SYRINGE ONE ×2 (16:31→17:54)
[2017-06-09] MEDS ORDERED: ONDANSETRON 4 MG/2 ML VIAL ONE (16:32)
[2017-06-09] MEDS ORDERED: NITROGLYCERIN 2% OINT 1 INCH/GM PACK TOP ONE (16:32)
[2017-06-09 17:01] LABS: Basophils % 0.6 % (0.0-0.8); Eosinophils # 0.1 10*3/uL (0.0-0.87); Eosinophils % 1.1 % (0.00-10.9); Hematocrit 34.5 VOL% (42.0-52.0); Hemoglobin 11.5 GM/DL (14.0-18.0); Immature Granulocytes % 0.3 %; Immature Granulocytes Absolute 0.02 #; Lymphocytes # 0.8 10*3/uL (1.4-4.0); Lymphocytes % 11.6 % (21.2-54.2); Mean Corpuscular HGB Conc 33.3 GM/DL (32-36); Mean Corpuscular Hemoglobin 29 PG (27-34); Mean Platelet Volume 10.1 FL (9.6-12.0); Monocytes # 0.4 10*3/uL (0.11-0.8); Monocytes % 5.8 % (1.7-12.7); NRBC # 0.02 10*3/uL; Neutrophils # 5.7 10*3/uL (1.4-7.4); Neutrophils % 80.6 % (38.7-73.9); Platelet Count 249 T/CUMM (130-400); Red Blood Count 3.92 MC/CUMM (3.8-5.5); Red Cell Distribution Width 18.9 % (9.3-17.3); White Blood Count 7.1 T/CUMM (4-12)
[2017-06-09 17:07] LABS: PT Patient Result 10.6 SECS
[2017-06-09 17:19] LABS: Alanine Aminotransferase 16 U/L (16-61); Albumin 3.2 G/DL (3.4-5.0); Alkaline Phosphatase 150 U/L (45-117); Aspartate Amino Transferase 17 U/L (0-37); Bilirubin,Total < 0.39 MG/DL (0.2-1.0); Blood Urea Nitrogen 3 MG/DL (7-18); Calcium 9.1 MG/DL (8.5-10.1); Glucose 115 MG/DL (74-106); Osmolality,Calculated 265.2 MOS/KG (273-304); Potassium 3.9 MMOL/L (3.5-5.1); Sodium 134 MMOL/L (136-145); Total Protein 7.8 G/DL (6.4-8.3)
[2017-06-09] MEDS ORDERED: ACETAMINOPHEN 325 MG TABLET PO PRN (18:01)
[2017-06-09] MEDS: SODIUM CHLORIDE 0.45% 1,000 ML IV SCH (20:15)
[2017-06-09] MEDS: ENOXAPARIN 40 MG/0.4 ML SYRINGE SUBCUT SCH (20:19)
[2017-06-09] MEDS: HYDROmorphone 2 MG/1 ML VIAL IV PRN (20:19)
[2017-06-09] MEDS: METOPROLOL TARTRATE 25 MG TABLET PO SCH (21:19)
[2017-06-09] MEDS: ISOSORBIDE MONONITRATE 30 MG TABLET PO SCH (21:19)
[2017-06-09] MEDS: DOCUSATE SODIUM 100 MG CAPSULE PO SCH (21:19)
[2017-06-09 21:24] LABS: Barbiturates Screen,Urine Negative (Negative); Benzodiazepines Screen,Urine Positive (Negative); Cannabinoid Screen,Urine Negative (Negative); Opiate Screen,Urine Positive (Negative); Phencyclidine Screen,Urine Negative (Negative)
[2017-06-10] MEDS: HYDROmorphone 2 MG/1 ML VIAL IV PRN ×5 (02:05→22:25)
[2017-06-10] MEDS: SODIUM CHLORIDE 0.45% 1,000 ML IV SCH ×3 (04:15→15:38)
[2017-06-10 04:52] LABS: Basophils % 0.7 % (0.0-0.8); Eosinophils # 0.1 10*3/uL (0.0-0.87); Eosinophils % 1.8 % (0.00-10.9); Hematocrit 29.5 VOL% (42.0-52.0); Hemoglobin 9.6 GM/DL (14.0-18.0); Immature Granulocytes % 0.2 %; Immature Granulocytes Absolute 0.01 #; Lymphocytes # 1.1 10*3/uL (1.4-4.0); Lymphocytes % 20.4 % (21.2-54.2); Mean Corpuscular HGB Conc 32.5 GM/DL (32-36); Mean Corpuscular Hemoglobin 29 PG (27-34); Mean Corpuscular Volume 89.1 FL (87-102); Mean Platelet Volume 10.6 FL (9.6-12.0); Monocytes # 0.6 10*3/uL (0.11-0.8); Monocytes % 10.4 % (1.7-12.7); Neutrophils # 3.7 10*3/uL (1.4-7.4); Neutrophils % 66.5 % (38.7-73.9); Platelet Count 249 T/CUMM (130-400); Red Blood Count 3.31 MC/CUMM (3.8-5.5); Red Cell Distribution Width 18.8 % (9.3-17.3); White Blood Count 5.6 T/CUMM (4-12)
[2017-06-10 05:28] LABS: Calcium 7.8 MG/DL (8.5-10.1); Magnesium 1.4 MG/DL (1.8-2.4); Osmolality,Calculated 269.8 MOS/KG (273-304); Potassium 4.2 MMOL/L (3.5-5.1)
[2017-06-10 05:44] LABS: Apearance,Urine CLEAR (Clear); Bilirubin,Urine Negative (Negative); Blood, Urine Negative (Negative); Glucose,Urine (UA) Negative (Negative); Ketones,Urine Negative (Negative); Mucus,Urine Occasional /LPF (Occasional); Nitrite,Urine Negative (Negative); Protein,Urine Negative; RBC,Urine <1 /HPF (0-4); Sperm,Urine Occasional /HPF (Negative); Squamous Epithelial Cell,Urine Occasional /HPF (0-10); Urine Color Yellow (Yellow); Urine Specific Gravity 1.006 (1.001-1.035); Urine Urobilinogen < 2.0 EU/DL (0.2-1.0); WBC,Urine <1 /HPF (0-6)
[2017-06-10] MEDS: ONDANSETRON 4 MG/2 ML VIAL IV PRN ×2 (07:25→18:23)
[2017-06-10] MEDS: ASPIRIN EC 81 MG TABLET PO SCH (09:37)
[2017-06-10] MEDS: PANTOPRAZOLE 40 MG VIAL IV SCH (09:37)
[2017-06-10] MEDS: DOCUSATE SODIUM 100 MG CAPSULE PO SCH ×2 (09:37→20:58)
[2017-06-10] MEDS ORDERED: NICOTINE 14 MG/24 HR PATCH TRANSDERM PRN (15:04)
[2017-06-10 15:49] LABS: Hematocrit 28.3 VOL% (42.0-52.0)
[2017-06-10] MEDS ORDERED: MAGNESIUM SULF RIDER 2 GM in PREMIX 1 EACH IV ONE (15:55)
[2017-06-10] MEDS: ISOSORBIDE MONONITRATE 30 MG TABLET PO SCH (20:58)
[2017-06-10] MEDS: METOPROLOL TARTRATE 25 MG TABLET PO SCH (20:58)
[2017-06-11] MEDS: ONDANSETRON 4 MG/2 ML VIAL IV PRN ×4 (01:07→21:21)
[2017-06-11] MEDS: SODIUM CHLORIDE 0.45% 1,000 ML IV SCH ×2 (01:55→18:02)
[2017-06-11 02:25] LABS: Basophils % 0.8 % (0.0-0.8); Eosinophils # 0.1 10*3/uL (0.0-0.87); Eosinophils % 2.8 % (0.00-10.9); Hematocrit 26.6 VOL% (42.0-52.0); Hemoglobin 8.7 GM/DL (14.0-18.0); Immature Granulocytes % 0.5 %; Immature Granulocytes Absolute 0.02 #; Lymphocytes % 25.9 % (21.2-54.2); Mean Corpuscular HGB Conc 32.7 GM/DL (32-36); Mean Corpuscular Hemoglobin 29 PG (27-34); Mean Corpuscular Volume 88.7 FL (87-102); Mean Platelet Volume 10.3 FL (9.6-12.0); Monocytes # 0.5 10*3/uL (0.11-0.8); Monocytes % 12.1 % (1.7-12.7); Neutrophils # 2.3 10*3/uL (1.4-7.4); Neutrophils % 57.9 % (38.7-73.9); Platelet Count 216 T/CUMM (130-400); Red Cell Distribution Width 18.7 % (9.3-17.3)
[2017-06-11 02:56] LABS: Calcium 7.9 MG/DL (8.5-10.1); Magnesium 1.8 MG/DL (1.8-2.4); Osmolality,Calculated 274.4 MOS/KG (273-304); Potassium 3.7 MMOL/L (3.5-5.1)
[2017-06-11] MEDS: HYDROmorphone 2 MG/1 ML VIAL IV PRN ×5 (03:26→23:07)
[2017-06-11] MEDS: ASPIRIN EC 81 MG TABLET PO SCH (08:31)
[2017-06-11] MEDS: DOCUSATE SODIUM 100 MG CAPSULE PO SCH ×2 (08:31→21:21)
[2017-06-11] MEDS: PANTOPRAZOLE 40 MG VIAL IV SCH (09:48)
[2017-06-11 20:00] LABS: Hemoglobin 9.2 GM/DL (14.0-18.0)
[2017-06-11] MEDS: ISOSORBIDE MONONITRATE 30 MG TABLET PO SCH (21:21)
[2017-06-11] MEDS: METOPROLOL TARTRATE 25 MG TABLET PO SCH (21:21)
[2017-06-12 04:29] LABS: Basophils % 0.8 % (0.0-0.8); Eosinophils # 0.1 10*3/uL (0.0-0.87); Eosinophils % 2.6 % (0.00-10.9); Hematocrit 27.9 VOL% (42.0-52.0); Immature Granulocytes % 0.5 %; Immature Granulocytes Absolute 0.02 #; Lymphocytes # 1.3 10*3/uL (1.4-4.0); Lymphocytes % 34.7 % (21.2-54.2); Mean Corpuscular HGB Conc 32.3 GM/DL (32-36); Mean Corpuscular Hemoglobin 29 PG (27-34); Mean Corpuscular Volume 89.7 FL (87-102); Mean Platelet Volume 10.2 FL (9.6-12.0); Monocytes # 0.5 10*3/uL (0.11-0.8); Monocytes % 11.9 % (1.7-12.7); Neutrophils # 1.9 10*3/uL (1.4-7.4); Neutrophils % 49.5 % (38.7-73.9); Platelet Count 230 T/CUMM (130-400); Red Blood Count 3.11 MC/CUMM (3.8-5.5); White Blood Count 3.8 T/CUMM (4-12)
[2017-06-12 04:58] LABS: Magnesium 1.7 MG/DL (1.8-2.4); Osmolality,Calculated 274.4 MOS/KG (273-304); Potassium 3.9 MMOL/L (3.5-5.1)
[2017-06-12] MEDS: SODIUM CHLORIDE 0.45% 1,000 ML IV SCH (05:57)
[2017-06-12] MEDS: ONDANSETRON 4 MG/2 ML VIAL IV PRN ×3 (06:05→18:53)
[2017-06-12] MEDS: HYDROmorphone 2 MG/1 ML VIAL IV PRN ×4 (06:06→23:17)
[2017-06-12] MEDS ORDERED: LIDOCAINE 2% 5 ML VIAL ONE (12:54)
[2017-06-12] MEDS: PANTOPRAZOLE 40 MG VIAL IV SCH (14:41)
[2017-06-12] MEDS: DOCUSATE SODIUM 100 MG CAPSULE PO SCH ×2 (14:44→21:44)
[2017-06-12] MEDS: ASPIRIN EC 81 MG TABLET PO SCH (14:44)
[2017-06-12] MEDS: METOPROLOL TARTRATE 25 MG TABLET PO SCH ×2 (14:44→21:44)
[2017-06-12] MEDS: ISOSORBIDE MONONITRATE 30 MG TABLET PO SCH (21:44)
[2017-06-12] MEDS ORDERED: MAGNESIUM SULF RIDER 2 GM in PREMIX 1 EACH IV ONE (22:36)
[2017-06-13 01:34] LABS: Basophils % 0.3 % (0.0-0.8); Eosinophils # 0.1 10*3/uL (0.0-0.87); Eosinophils % 1.9 % (0.00-10.9); Hematocrit 26.5 VOL% (42.0-52.0); Hemoglobin 8.8 GM/DL (14.0-18.0); Immature Granulocytes % 0.1 %; Immature Granulocytes Absolute 0.01 #; Lymphocytes # 1.3 10*3/uL (1.4-4.0); Lymphocytes % 18.6 % (21.2-54.2); Mean Corpuscular HGB Conc 33.2 GM/DL (32-36); Mean Corpuscular Hemoglobin 30 PG (27-34); Mean Corpuscular Volume 88.9 FL (87-102); Mean Platelet Volume 10.4 FL (9.6-12.0); Monocytes # 0.7 10*3/uL (0.11-0.8); Monocytes % 9.4 % (1.7-12.7); Neutrophils # 4.8 10*3/uL (1.4-7.4); Neutrophils % 69.7 % (38.7-73.9); Platelet Count 220 T/CUMM (130-400); Red Blood Count 2.98 MC/CUMM (3.8-5.5); White Blood Count 6.9 T/CUMM (4-12)
[2017-06-13 09:53] LABS: Albumin 2.6 G/DL (3.4-5.0); Bilirubin,Total 0.5 MG/DL (0.2-1.0); Calcium 7.8 MG/DL (8.5-10.1); Magnesium 2.2 MG/DL (1.8-2.4); Osmolality,Calculated 275.4 MOS/KG (273-304); Potassium 3.5 MMOL/L (3.5-5.1); Total Protein 5.5 G/DL (6.4-8.3)
[2017-06-13] MEDS: ASPIRIN EC 81 MG TABLET PO SCH (11:28)
[2017-06-13] MEDS: DOCUSATE SODIUM 100 MG CAPSULE PO SCH ×2 (11:28→21:19)
[2017-06-13] MEDS: SODIUM CHLORIDE 0.45% 1,000 ML IV SCH (11:28)
[2017-06-13] MEDS: PANTOPRAZOLE 40 MG VIAL IV SCH (11:29)
[2017-06-13] MEDS ORDERED: HYDROCORTISONE 2.5% RECTAL CREAM 30 GM TUBE TOP PRN (11:40)
[2017-06-13] MEDS: HYDROmorphone 2 MG/1 ML VIAL IV PRN ×2 (13:43→19:23)
[2017-06-13] MEDS: PREGABALIN 75 MG CAPSULE PO SCH ×2 (15:50→21:19)
[2017-06-13] MEDS: ONDANSETRON 4 MG/2 ML VIAL IV PRN (19:24)
[2017-06-13] MEDS: POLYETHYLENE GLYCOL POWDER 17 GM PACK PO SCH (21:16)
[2017-06-13] MEDS: ISOSORBIDE MONONITRATE 30 MG TABLET PO SCH (21:19)
[2017-06-13] MEDS: ZALEPLON 5 MG CAPSULE PO SCH (21:19)
[2017-06-13] MEDS: METOPROLOL TARTRATE 25 MG TABLET PO SCH (21:19)
[2017-06-14] MEDS: SODIUM CHLORIDE 0.45% 1,000 ML IV SCH ×2 (00:48→20:53)
[2017-06-14] MEDS: HYDROmorphone 2 MG/1 ML VIAL IV PRN ×5 (00:50→20:55)
[2017-06-14 08:07] LABS: Basophils % 0.7 % (0.0-0.8); Eosinophils # 0.1 10*3/uL (0.0-0.87); Eosinophils % 3.4 % (0.00-10.9); Hematocrit 29.6 VOL% (42.0-52.0); Hemoglobin 9.7 GM/DL (14.0-18.0); Immature Granulocytes % 0.2 %; Immature Granulocytes Absolute 0.01 #; Lymphocytes # 1.1 10*3/uL (1.4-4.0); Lymphocytes % 25.6 % (21.2-54.2); Mean Corpuscular HGB Conc 32.8 GM/DL (32-36); Mean Corpuscular Hemoglobin 30 PG (27-34); Mean Corpuscular Volume 90.8 FL (87-102); Mean Platelet Volume 10.2 FL (9.6-12.0); Monocytes # 0.4 10*3/uL (0.11-0.8); Monocytes % 10.4 % (1.7-12.7); Neutrophils # 2.5 10*3/uL (1.4-7.4); Neutrophils % 59.7 % (38.7-73.9); Platelet Count 242 T/CUMM (130-400); Red Blood Count 3.26 MC/CUMM (3.8-5.5); White Blood Count 4.1 T/CUMM (4-12)
[2017-06-14 08:44] LABS: Osmolality,Calculated 275.4 MOS/KG (273-304); Potassium 3.7 MMOL/L (3.5-5.1)
[2017-06-14] MEDS ORDERED: POLYETHYLENE GLYCOL POWDER 17 GM PACK PO SCH (09:00)
[2017-06-14] MEDS: PANTOPRAZOLE 40 MG VIAL IV SCH (09:52)
[2017-06-14] MEDS: PREGABALIN 75 MG CAPSULE PO SCH ×2 (10:20→21:00)
[2017-06-14] MEDS: DOCUSATE SODIUM 100 MG CAPSULE PO SCH ×2 (10:20→20:55)
[2017-06-14] MEDS: ASPIRIN EC 81 MG TABLET PO SCH (10:20)
[2017-06-14] MEDS: POLYETHYLENE GLYCOL POWDER 17 GM PACK PO SCH (10:21)
[2017-06-14] MEDS: ONDANSETRON 4 MG/2 ML VIAL IV PRN ×2 (10:54→16:37)
[2017-06-14] MEDS ORDERED: ceFAZolin 2,000 MG in PREMIX 1 EACH IV ONE (12:11)
[2017-06-14] MEDS: METOPROLOL TARTRATE 25 MG TABLET PO SCH (20:54)
[2017-06-14] MEDS: ENOXAPARIN 40 MG/0.4 ML SYRINGE SUBCUT SCH (20:54)
[2017-06-14] MEDS: ZALEPLON 5 MG CAPSULE PO SCH (20:54)
[2017-06-14] MEDS: ISOSORBIDE MONONITRATE 30 MG TABLET PO SCH (20:55)
[2017-06-15] MEDS: HYDROmorphone 2 MG/1 ML VIAL IV PRN ×3 (01:34→16:19)
[2017-06-15] MEDS: ONDANSETRON 4 MG/2 ML VIAL IV PRN ×2 (01:36→16:18)
[2017-06-15 04:41] LABS: Basophils % 0.6 % (0.0-0.8); Eosinophils # 0.2 10*3/uL (0.0-0.87); Eosinophils % 3.5 % (0.00-10.9); Hematocrit 26.4 VOL% (42.0-52.0); Hemoglobin 8.7 GM/DL (14.0-18.0); Immature Granulocytes % 0.4 %; Immature Granulocytes Absolute 0.02 #; Lymphocytes # 1.4 10*3/uL (1.4-4.0); Lymphocytes % 27.9 % (21.2-54.2); Mean Corpuscular Hemoglobin 30 PG (27-34); Mean Corpuscular Volume 90.1 FL (87-102); Mean Platelet Volume 10.2 FL (9.6-12.0); Monocytes # 0.5 10*3/uL (0.11-0.8); Monocytes % 10.9 % (1.7-12.7); Neutrophils # 2.8 10*3/uL (1.4-7.4); Neutrophils % 56.7 % (38.7-73.9); Platelet Count 219 T/CUMM (130-400); Red Blood Count 2.93 MC/CUMM (3.8-5.5); Red Cell Distribution Width 18.8 % (9.3-17.3); White Blood Count 4.9 T/CUMM (4-12)
[2017-06-15 05:08] LABS: Calcium 7.5 MG/DL (8.5-10.1); Osmolality,Calculated 280.1 MOS/KG (273-304)
[2017-06-15] MEDS ORDERED: ceFAZolin 2,000 MG in PREMIX 1 EACH IV ONE (08:08)
[2017-06-15] MEDS: ASPIRIN EC 81 MG TABLET PO SCH (09:46)
[2017-06-15] MEDS: PREGABALIN 75 MG CAPSULE PO SCH ×2 (09:46→21:10)
[2017-06-15] MEDS: PANTOPRAZOLE 40 MG VIAL IV SCH (09:46)
[2017-06-15] MEDS: DOCUSATE SODIUM 100 MG CAPSULE PO SCH ×2 (09:46→21:10)
[2017-06-15] MEDS: POLYETHYLENE GLYCOL POWDER 17 GM PACK PO SCH (09:46)
[2017-06-15] MEDS ORDERED: ROPIVACAINE 0.5% 30 ML VIAL ONE (10:32)
[2017-06-15] MEDS ORDERED: methylPREDNISolone ACETATE 80 MG/1 ML VIAL ONE (10:32)
[2017-06-15] MEDS ORDERED: PROPOFOL 200 MG/20 ML VIAL IV ONE (10:49)
[2017-06-15] MEDS ORDERED: MIDAZOLAM 2 MG/2 ML VIAL ONE (10:49)
[2017-06-15] MEDS ORDERED: fentaNYL 100 MCG/2 ML VIAL ONE (10:49)
[2017-06-15] MEDS: ENOXAPARIN 40 MG/0.4 ML SYRINGE SUBCUT SCH (21:10)
[2017-06-15] MEDS: ISOSORBIDE MONONITRATE 30 MG TABLET PO SCH (21:10)
[2017-06-15] MEDS: ZALEPLON 5 MG CAPSULE PO SCH (21:10)
[2017-06-15] MEDS: METOPROLOL TARTRATE 25 MG TABLET PO SCH (21:10)
[2017-06-16] MEDS: ONDANSETRON 4 MG/2 ML VIAL IV PRN (00:11)
[2017-06-16] MEDS: HYDROmorphone 2 MG/1 ML VIAL IV PRN ×2 (00:13→06:21)
[2017-06-16 06:29] LABS: Basophils % 0.6 % (0.0-0.8); Eosinophils # 0.1 10*3/uL (0.0-0.87); Eosinophils % 2.4 % (0.00-10.9); Hematocrit 28.2 VOL% (42.0-52.0); Hemoglobin 9.1 GM/DL (14.0-18.0); Immature Granulocytes % 0.2 %; Immature Granulocytes Absolute 0.01 #; Lymphocytes # 1.3 10*3/uL (1.4-4.0); Lymphocytes % 24.2 % (21.2-54.2); Mean Corpuscular HGB Conc 32.3 GM/DL (32-36); Mean Corpuscular Hemoglobin 29 PG (27-34); Mean Corpuscular Volume 90.4 FL (87-102); Mean Platelet Volume 10.6 FL (9.6-12.0); Monocytes # 0.5 10*3/uL (0.11-0.8); Monocytes % 9.9 % (1.7-12.7); Neutrophils # 3.4 10*3/uL (1.4-7.4); Neutrophils % 62.7 % (38.7-73.9); Platelet Count 276 T/CUMM (130-400); Red Blood Count 3.12 MC/CUMM (3.8-5.5); Red Cell Distribution Width 19.4 % (9.3-17.3); White Blood Count 5.4 T/CUMM (4-12)
[2017-06-16] MEDS: PANTOPRAZOLE 40 MG VIAL IV SCH (08:40)
[2017-06-16] MEDS: DOCUSATE SODIUM 100 MG CAPSULE PO SCH (08:41)
[2017-06-16] MEDS: ASPIRIN EC 81 MG TABLET PO SCH (08:41)
[2017-06-16] MEDS: PREGABALIN 75 MG CAPSULE PO SCH (08:41)
[2017-06-16] MEDS: POLYETHYLENE GLYCOL POWDER 17 GM PACK PO SCH (10:04)
[2017-06-16 12:13] VITALS: BP 132/76
== END 2017-06-16 13:15 | disposition home or self-care (01) | DRG 392 ==
LOC: N.ED 15:37 → N.EDINP 18:01 → N.TELEN 19:09
PROVIDERS: ADMIT Internal Medicine; ATTEND Internal Medicine

== ENCOUNTER 2017-06-19 18:12 | Inpatient (IN) ==
[2017-06-19] MEDS ORDERED: NITROGLYCERIN 2% OINT 1 INCH/GM PACK TOP STA (18:54)
[2017-06-19] MEDS ORDERED: MORPHINE 2 MG/1 ML SYRINGE IV STA (18:54)
[2017-06-19] MEDS ORDERED: ONDANSETRON 4 MG/2 ML VIAL IV STA (18:54)
[2017-06-19] MEDS ORDERED: ALUM/MAG/SIMETH/LIDO VISC 1:1 30 ML BOTTLE PO STA (18:54)
[2017-06-19] MEDS ORDERED: SODIUM CHLORIDE 0.9% 500 ML IV STA (18:54)
[2017-06-19] MEDS ORDERED: ASPIRIN 325 MG TABLET PO STA (18:54)
[2017-06-19] MEDS ORDERED: ASPIRIN 325 MG TABLET ONE (19:07)
[2017-06-19] MEDS ORDERED: ALUM/MAG/SIMETH/LIDO VISC 1:1 30 ML BOTTLE PO ONE (19:07)
[2017-06-19] MEDS ORDERED: MORPHINE 2 MG/1 ML SYRINGE ONE (19:07)
[2017-06-19] MEDS ORDERED: ONDANSETRON 4 MG/2 ML VIAL ONE (19:07)
[2017-06-19] MEDS ORDERED: NITROGLYCERIN 2% OINT 1 INCH/GM PACK TOP ONE (19:07)
[2017-06-19 19:09] LABS: Basophils % 0.5 % (0.0-0.8); Eosinophils # 0.1 10*3/uL (0.0-0.87); Eosinophils % 1.3 % (0.00-10.9); Hematocrit 34.5 VOL% (42.0-52.0); Hemoglobin 11.2 GM/DL (14.0-18.0); Immature Granulocytes % 0.4 %; Immature Granulocytes Absolute 0.03 #; Lymphocytes # 1.6 10*3/uL (1.4-4.0); Lymphocytes % 20.4 % (21.2-54.2); Mean Corpuscular HGB Conc 32.5 GM/DL (32-36); Mean Corpuscular Hemoglobin 29 PG (27-34); Mean Corpuscular Volume 89.8 FL (87-102); Mean Platelet Volume 10.6 FL (9.6-12.0); Monocytes # 0.6 10*3/uL (0.11-0.8); Monocytes % 7.5 % (1.7-12.7); Neutrophils # 5.6 10*3/uL (1.4-7.4); Neutrophils % 69.9 % (38.7-73.9); Platelet Count 244 T/CUMM (130-400); Red Blood Count 3.84 MC/CUMM (3.8-5.5); Red Cell Distribution Width 19.3 % (9.3-17.3)
[2017-06-19 19:21] LABS: PT Patient Result 10.2 SECS
[2017-06-19 19:38] LABS: Alanine Aminotransferase 13 U/L (16-61); Albumin 3.2 G/DL (3.4-5.0); Alkaline Phosphatase 120 U/L (45-117); Aspartate Amino Transferase 17 U/L (0-37); Bilirubin,Total < 0.39 MG/DL (0.2-1.0); Blood Urea Nitrogen 8 MG/DL (7-18); Calcium 9.1 MG/DL (8.5-10.1); Glucose 106 MG/DL (74-106); Magnesium 1.6 MG/DL (1.8-2.4); Osmolality,Calculated 270.8 MOS/KG (273-304); Potassium 4.1 MMOL/L (3.5-5.1); Sodium 137 MMOL/L (136-145); Total Protein 7.6 G/DL (6.4-8.3)
[2017-06-19] MEDS ORDERED: MAGNESIUM SULF RIDER 2 GM in PREMIX 1 EACH IV STA (19:44)
[2017-06-19] MEDS ORDERED: HYDROmorphone 2 MG/1 ML VIAL IV ONE (19:45)
[2017-06-19 19:50] LABS: Apearance,Urine CLEAR (Clear); Bilirubin,Urine Negative (Negative); Blood, Urine Negative (Negative); Glucose,Urine (UA) Negative (Negative); Ketones,Urine Negative (Negative); Mucus,Urine Occasional /LPF (Occasional); Nitrite,Urine Negative (Negative); Protein,Urine Negative; Urine Color Yellow (Yellow); Urine Urobilinogen < 2.0 EU/DL (0.2-1.0); WBC,Urine 1 /HPF (0-6)
[2017-06-19] MEDS ORDERED: HYDROmorphone 2 MG/1 ML VIAL ONE (20:02)
[2017-06-19] MEDS ORDERED: KETOROLAC 30 MG/1 ML VIAL ONE (20:48)
[2017-06-19] MEDS ORDERED: MAGNESIUM SULF RIDER 50 ML IV ONE (21:00)
[2017-06-19] MEDS ORDERED: KETOROLAC 30 MG/1 ML VIAL IV STA (21:06)
[2017-06-19] MEDS ORDERED: ACETAMINOPHEN 325 MG TABLET PO PRN ×2 (22:08)
[2017-06-19] MEDS ORDERED: NITROGLYCERIN SL 0.4 MG TABLET SL PRN (22:08)
[2017-06-19] MEDS ORDERED: HYDROCORTISONE 2.5% RECTAL CREAM 30 GM TUBE TOP PRN (22:08)
[2017-06-19] MEDS: SODIUM CHLORIDE 0.9% 1,000 ML IV SCH (22:15)
[2017-06-19] MEDS: HYDROmorphone 2 MG/1 ML VIAL IV PRN (22:16)
[2017-06-19] MEDS: ONDANSETRON 4 MG/2 ML VIAL IV PRN (22:21)
[2017-06-19] MEDS: NITROGLYCERIN 2% OINT 1 INCH/GM PACK TOP SCH (23:35)
[2017-06-20] MEDS: HYDROcod/ACETAMIN 7.5-325 MG/15 ML UDCUP PO PRN ×2 (00:18→16:37)
[2017-06-20] MEDS: HYDROmorphone 2 MG/1 ML VIAL IV PRN ×5 (02:43→23:05)
[2017-06-20 03:04] LABS: Basophils # 0.1 10*3/uL (0.0-0.2); Basophils % 0.6 % (0.0-0.8); Eosinophils # 0.1 10*3/uL (0.0-0.87); Eosinophils % 1.3 % (0.00-10.9); Hematocrit 29.3 VOL% (42.0-52.0); Hemoglobin 9.5 GM/DL (14.0-18.0); Immature Granulocytes % 0.4 %; Immature Granulocytes Absolute 0.03 #; Lymphocytes # 1.2 10*3/uL (1.4-4.0); Lymphocytes % 14.2 % (21.2-54.2); Mean Corpuscular HGB Conc 32.4 GM/DL (32-36); Mean Corpuscular Hemoglobin 29 PG (27-34); Mean Corpuscular Volume 90.2 FL (87-102); Mean Platelet Volume 10.6 FL (9.6-12.0); Monocytes # 0.7 10*3/uL (0.11-0.8); Monocytes % 8.5 % (1.7-12.7); Neutrophils # 6.3 10*3/uL (1.4-7.4); Platelet Count 252 T/CUMM (130-400); Red Blood Count 3.25 MC/CUMM (3.8-5.5); Red Cell Distribution Width 18.9 % (9.3-17.3); White Blood Count 8.5 T/CUMM (4-12)
[2017-06-20 03:20] LABS: Alanine Aminotransferase 12 U/L (16-61); Albumin 2.9 G/DL (3.4-5.0); Alkaline Phosphatase 114 U/L (45-117); Aspartate Amino Transferase 10 U/L (0-37); Bilirubin,Total < 0.39 MG/DL (0.2-1.0); Blood Urea Nitrogen 6 MG/DL (7-18); Calcium 8.3 MG/DL (8.5-10.1); Cholesterol 199 MG/DL (50-200); Glucose 108 MG/DL (74-106); HDL Cholesterol 71 MG/DL (40-60); Osmolality,Calculated 273.7 MOS/KG (273-304); Potassium 3.9 MMOL/L (3.5-5.1); Sodium 138 MMOL/L (136-145); Total Protein 6.1 G/DL (6.4-8.3); Triglycerides 111 MG/DL (2-150); VLDL CHOLESTEROL 22.2 MG/DL
[2017-06-20] MEDS: ONDANSETRON 4 MG/2 ML VIAL IV PRN ×2 (03:44→09:19)
[2017-06-20] MEDS ORDERED: ALUM/MAG/SIMETH/LIDO VISC 1:1 30 ML BOTTLE PO ONE (03:49)
[2017-06-20] MEDS: SODIUM CHLORIDE 0.9% 1,000 ML IV SCH ×3 (06:17→21:47)
[2017-06-20] MEDS: NITROGLYCERIN 2% OINT 1 INCH/GM PACK TOP SCH ×4 (06:40→23:41)
[2017-06-20] MEDS ORDERED: HYDROmorphone 2 MG/1 ML VIAL IV ONE (07:57)
[2017-06-20] MEDS ORDERED: METOPROLOL TARTRATE 25 MG TABLET ONE (08:00)
[2017-06-20] MEDS ORDERED: PANTOPRAZOLE 40 MG VIAL IV SCH (09:00)
[2017-06-20] MEDS ORDERED: DOCUSATE SODIUM 100 MG CAPSULE PO SCH (09:00)
[2017-06-20] MEDS: BACLOFEN 10 MG TABLET PO SCH ×3 (09:20→20:53)
[2017-06-20] MEDS: METOCLOPRAMIDE 5 MG TABLET PO SCH ×3 (09:20→16:30)
[2017-06-20] MEDS: PREGABALIN 75 MG CAPSULE PO SCH ×2 (09:21→20:53)
[2017-06-20] MEDS: DOCUSATE SODIUM 100 MG CAPSULE PO SCH ×2 (09:21→20:53)
[2017-06-20] MEDS: ASPIRIN EC 81 MG TABLET PO SCH (09:21)
[2017-06-20] MEDS: PANTOPRAZOLE 40 MG TABLET PO SCH ×2 (09:21→16:30)
[2017-06-20] MEDS: METOPROLOL TARTRATE 25 MG TABLET PO SCH ×2 (09:21→20:53)
[2017-06-20] MEDS: ENOXAPARIN 60 MG/0.6 ML SYRINGE SUBCUT SCH ×2 (09:22→09:25)
[2017-06-20] MEDS: POLYETHYLENE GLYCOL POWDER 17 GM PACK PO SCH (09:29)
[2017-06-20] MEDS: ISOSORBIDE MONONITRATE 30 MG TABLET PO SCH (20:53)
[2017-06-21] MEDS: HYDROmorphone 2 MG/1 ML VIAL IV PRN (03:49)
[2017-06-21] MEDS: NITROGLYCERIN 2% OINT 1 INCH/GM PACK TOP SCH ×3 (05:45→19:51)
[2017-06-21] MEDS: SODIUM CHLORIDE 0.9% 1,000 ML IV SCH ×2 (08:09→14:42)
[2017-06-21] MEDS: DOCUSATE SODIUM 100 MG CAPSULE PO SCH ×3 (08:45→21:33)
[2017-06-21] MEDS: ASPIRIN EC 81 MG TABLET PO SCH (08:45)
[2017-06-21] MEDS: BACLOFEN 10 MG TABLET PO SCH ×3 (08:46→21:31)
[2017-06-21] MEDS: PREGABALIN 75 MG CAPSULE PO SCH ×2 (08:46→21:32)
[2017-06-21] MEDS: METOPROLOL TARTRATE 25 MG TABLET PO SCH ×2 (08:47→21:32)
[2017-06-21] MEDS: METOCLOPRAMIDE 5 MG TABLET PO SCH ×3 (08:47→18:02)
[2017-06-21] MEDS: PANTOPRAZOLE 40 MG TABLET PO SCH ×2 (08:47→17:10)
[2017-06-21] MEDS: HYDROcod/ACETAMIN 7.5-325 MG/15 ML UDCUP PO PRN ×3 (08:48→21:30)
[2017-06-21] MEDS: POLYETHYLENE GLYCOL POWDER 17 GM PACK PO SCH (11:28)
[2017-06-21] MEDS: ALUM/MAG/SIMETH/LIDO VISC 1:1 30 ML BOTTLE PO SCH ×2 (12:02→21:31)
[2017-06-21] MEDS: LIDOCAINE 5% PATCH TRANSDERM SCH (17:10)
[2017-06-21] MEDS: ISOSORBIDE MONONITRATE 30 MG TABLET PO SCH (21:33)
[2017-06-22] MEDS: NITROGLYCERIN 2% OINT 1 INCH/GM PACK TOP SCH ×4 (00:15→19:39)
[2017-06-22] MEDS: SODIUM CHLORIDE 0.9% 1,000 ML IV SCH ×3 (00:20→16:14)
[2017-06-22] MEDS: ALUM/MAG/SIMETH/LIDO VISC 1:1 30 ML BOTTLE PO SCH ×3 (03:14→21:50)
[2017-06-22 05:22] LABS: Basophils % 0.3 % (0.0-0.8); Eosinophils # 0.1 10*3/uL (0.0-0.87); Eosinophils % 1.2 % (0.00-10.9); Hematocrit 24.4 VOL% (42.0-52.0); Hemoglobin 7.9 GM/DL (14.0-18.0); Immature Granulocytes % 0.5 %; Immature Granulocytes Absolute 0.06 #; Lymphocytes # 1.6 10*3/uL (1.4-4.0); Lymphocytes % 13.5 % (21.2-54.2); Mean Corpuscular HGB Conc 32.4 GM/DL (32-36); Mean Corpuscular Hemoglobin 29 PG (27-34); Mean Corpuscular Volume 90.7 FL (87-102); Monocytes # 1.4 10*3/uL (0.11-0.8); Monocytes % 11.5 % (1.7-12.7); NRBC # 0.02 10*3/uL; Neutrophils # 8.6 10*3/uL (1.4-7.4); Platelet Count 212 T/CUMM (130-400); Red Blood Count 2.69 MC/CUMM (3.8-5.5); Red Cell Distribution Width 19.2 % (9.3-17.3); White Blood Count 11.8 T/CUMM (4-12)
[2017-06-22 05:51] LABS: Calcium 8.1 MG/DL (8.5-10.1); Magnesium 1.8 MG/DL (1.8-2.4); Osmolality,Calculated 275.4 MOS/KG (273-304)
[2017-06-22] MEDS: HYDROcod/ACETAMIN 7.5-325 MG/15 ML UDCUP PO PRN ×3 (10:00→21:56)
[2017-06-22] MEDS ORDERED: methylPREDNISolone ACETATE 80 MG/1 ML VIAL ONE (10:41)
[2017-06-22] MEDS ORDERED: ROPIVACAINE 0.5% 30 ML VIAL ONE (10:41)
[2017-06-22] MEDS ORDERED: PROPOFOL 200 MG/20 ML VIAL IV ONE (11:57)
[2017-06-22] MEDS ORDERED: fentaNYL 100 MCG/2 ML VIAL ONE (11:58)
[2017-06-22] MEDS: PREGABALIN 75 MG CAPSULE PO SCH ×2 (12:54→21:51)
[2017-06-22] MEDS: BACLOFEN 10 MG TABLET PO SCH ×3 (12:54→21:50)
[2017-06-22] MEDS: DOCUSATE SODIUM 100 MG CAPSULE PO SCH ×2 (12:54→21:51)
[2017-06-22] MEDS: METOPROLOL TARTRATE 25 MG TABLET PO SCH ×2 (12:55→21:51)
[2017-06-22] MEDS: ASPIRIN EC 81 MG TABLET PO SCH (12:55)
[2017-06-22] MEDS: METOCLOPRAMIDE 5 MG TABLET PO SCH ×3 (12:55→16:13)
[2017-06-22] MEDS: PANTOPRAZOLE 40 MG TABLET PO SCH ×2 (12:55→17:06)
[2017-06-22] MEDS: LIDOCAINE 5% PATCH TRANSDERM SCH (13:33)
[2017-06-22] MEDS: POLYETHYLENE GLYCOL POWDER 17 GM PACK PO SCH (13:33)
[2017-06-22 18:26] LABS: Hemoglobin 8.6 GM/DL (14.0-18.0)
[2017-06-22] MEDS: ISOSORBIDE MONONITRATE 30 MG TABLET PO SCH (22:28)
[2017-06-23] MEDS: NITROGLYCERIN 2% OINT 1 INCH/GM PACK TOP SCH ×4 (00:14→17:48)
[2017-06-23] MEDS: SODIUM CHLORIDE 0.9% 1,000 ML IV SCH ×3 (01:58→11:12)
[2017-06-23] MEDS: ALUM/MAG/SIMETH/LIDO VISC 1:1 30 ML BOTTLE PO SCH ×3 (03:35→18:23)
[2017-06-23 03:52] LABS: Basophils % 0.2 % (0.0-0.8); Eosinophils # 0.1 10*3/uL (0.0-0.87); Eosinophils % 0.6 % (0.00-10.9); Hematocrit 25.1 VOL% (42.0-52.0); Immature Granulocytes % 0.4 %; Immature Granulocytes Absolute 0.05 #; Lymphocytes % 8.1 % (21.2-54.2); Mean Corpuscular HGB Conc 31.9 GM/DL (32-36); Mean Corpuscular Hemoglobin 29 PG (27-34); Mean Corpuscular Volume 91.3 FL (87-102); Mean Platelet Volume 10.6 FL (9.6-12.0); Monocytes # 1.1 10*3/uL (0.11-0.8); Monocytes % 8.4 % (1.7-12.7); Neutrophils # 10.6 10*3/uL (1.4-7.4); Neutrophils % 82.3 % (38.7-73.9); Platelet Count 206 T/CUMM (130-400); Red Blood Count 2.75 MC/CUMM (3.8-5.5); Red Cell Distribution Width 19.2 % (9.3-17.3); White Blood Count 12.9 T/CUMM (4-12)
[2017-06-23 03:59] LABS: Calcium 7.9 MG/DL (8.5-10.1); Osmolality,Calculated 279.4 MOS/KG (273-304); Potassium 4.1 MMOL/L (3.5-5.1)
[2017-06-23] MEDS: METOCLOPRAMIDE 5 MG TABLET PO SCH ×3 (07:52→15:30)
[2017-06-23] MEDS: PANTOPRAZOLE 40 MG TABLET PO SCH ×2 (07:52→15:29)
[2017-06-23] MEDS: LIDOCAINE 5% PATCH TRANSDERM SCH (08:54)
[2017-06-23] MEDS: BACLOFEN 10 MG TABLET PO SCH ×2 (08:55→15:29)
[2017-06-23] MEDS: DOCUSATE SODIUM 100 MG CAPSULE PO SCH (08:55)
[2017-06-23] MEDS: PREGABALIN 75 MG CAPSULE PO SCH (08:55)
[2017-06-23] MEDS: METOPROLOL TARTRATE 25 MG TABLET PO SCH (08:55)
[2017-06-23] MEDS: ASPIRIN EC 81 MG TABLET PO SCH (08:55)
[2017-06-23] MEDS: POLYETHYLENE GLYCOL POWDER 17 GM PACK PO SCH (08:56)
[2017-06-23] MEDS: HYDROcod/ACETAMIN 7.5-325 MG/15 ML UDCUP PO PRN ×2 (11:08→17:04)
[2017-06-23 12:01] LABS: Hematocrit 26.7 VOL% (42.0-52.0); Hemoglobin 8.6 GM/DL (14.0-18.0)
[2017-06-23] MEDS ORDERED: SODIUM CHLORIDE 0.9% 1,000 ML IV PRN (12:47)
[2017-06-23 17:07] VITALS: BP 115/58
[2017-06-23 17:39] LABS: Hematocrit 28.3 VOL% (42.0-52.0); Hemoglobin 9.3 GM/DL (14.0-18.0)
== END 2017-06-23 18:30 | disposition home or self-care (01) | DRG 391 ==
LOC: N.ED 18:12 → N.EDINP 21:12 → N.TELEN 21:50
PROVIDERS: ADMIT Internal Medicine; ATTEND Internal Medicine

== ENCOUNTER 2017-12-18 21:18 | Observation (INO) ==
[2017-12-18] MEDS ORDERED: ALUM/MAG/SIMETH/LIDO VISC 1:1 30 ML BOTTLE PO ONE (23:06)
[2017-12-18] MEDS ORDERED: SODIUM CHLORIDE 0.9% 500 ML IV STA (23:12)
[2017-12-18] MEDS ORDERED: PANTOPRAZOLE 40 MG VIAL IV STA (23:12)
[2017-12-18] MEDS ORDERED: ONDANSETRON 4 MG/2 ML VIAL IV STA (23:12)
[2017-12-18] MEDS ORDERED: ALUM/MAG/SIMETH/LIDO VISC 1:1 30 ML BOTTLE PO STA (23:12)
[2017-12-18 23:22] LABS: Basophils % 0.5 % (0.0-0.8); Eosinophils # 0.1 10*3/uL (0.0-0.87); Eosinophils % 1.1 % (0.00-10.9); Hematocrit 31.3 VOL% (42.0-52.0); Immature Granulocytes % 0.2 %; Immature Granulocytes Absolute 0.02 #; Lymphocytes # 1.5 10*3/uL (1.4-4.0); Lymphocytes % 17.3 % (21.2-54.2); Mean Corpuscular HGB Conc 31.9 GM/DL (32-36); Mean Corpuscular Hemoglobin 26 PG (27-34); Mean Corpuscular Volume 80.5 FL (87-102); Mean Platelet Volume 10.4 FL (9.6-12.0); Monocytes # 0.8 10*3/uL (0.11-0.8); Monocytes % 9.5 % (1.7-12.7); Neutrophils % 71.4 % (38.7-73.9); Platelet Count 246 T/CUMM (130-400); Red Blood Count 3.89 MC/CUMM (3.8-5.5); Red Cell Distribution Width 18.2 % (9.3-17.3); White Blood Count 8.4 T/CUMM (4-12)
[2017-12-18 23:39] LABS: Alanine Aminotransferase 23 U/L (16-61); Albumin 3.9 G/DL (3.4-5.0); Alkaline Phosphatase 133 U/L (45-117); Amylase 125 U/L (25-115); Aspartate Amino Transferase 16 U/L (0-37); Blood Urea Nitrogen 7 MG/DL (7-18); Calcium 9.7 MG/DL (8.5-10.1); Glucose 108 MG/DL (74-106); Osmolality,Calculated 268.1 MOS/KG (273-304); Potassium 4.1 MMOL/L (3.5-5.1); Sodium 135 MMOL/L (136-145); Total Protein 8.2 G/DL (6.4-8.3); Troponin I Only < 0.015 NG/ML (0.00-0.045)
[2017-12-18] MEDS ORDERED: MORPHINE 4 MG/1 ML VIAL IV STA (23:39)
[2017-12-18] MEDS ORDERED: MORPHINE 4 MG/1 ML VIAL ONE (23:41)
[2017-12-19 00:08] LABS: Lactic Acid 0.7 MMOL/L (0.4-2.0)
[2017-12-19 01:08] LABS: Apearance,Urine CLEAR (Clear); Bacteria,Urine Occasional /HPF (Few); Bilirubin,Urine Negative (Negative); Blood, Urine Negative (Negative); Glucose,Urine (UA) Negative (Negative); Ketones,Urine Negative (Negative); Mucus,Urine Occasional /LPF (Occasional); Nitrite,Urine Negative (Negative); Protein,Urine Negative; RBC,Urine <1 /HPF (0-4); Urine Color Straw (Yellow); Urine Specific Gravity 1.004 (1.001-1.035); Urine Urobilinogen < 2.0 EU/DL (0.2-1.0); WBC,Urine 1 /HPF (0-6)
[2017-12-19] MEDS ORDERED: HYDROmorphone 2 MG/1 ML VIAL IV ONE (01:55)
[2017-12-19] MEDS ORDERED: HYDROmorphone 2 MG/1 ML VIAL ONE (01:57)
[2017-12-19] MEDS ORDERED: METHYL SALICYLATE TP PRN (02:30)
[2017-12-19] MEDS ORDERED: BACLOFEN 10 MG TABLET PO PRN (02:30)
[2017-12-19] MEDS ORDERED: ACETAMINOPHEN 325 MG TABLET PO PRN (02:30)
[2017-12-19] MEDS ORDERED: ONDANSETRON 4 MG/2 ML VIAL IV PRN (02:30)
[2017-12-19] MEDS ORDERED: MENTHOL TP PRN (02:30)
[2017-12-19] MEDS ORDERED: NITROGLYCERIN SL 0.4 MG TABLET SL PRN (02:30)
[2017-12-19] MEDS: SODIUM CHLORIDE 0.9% 1,000 ML IV SCH ×3 (02:49→21:40)
[2017-12-19] MEDS: FAMOTIDINE 20 MG/2 ML VIAL IV SCH ×2 (02:51→15:09)
[2017-12-19 04:42] LABS: Basophils % 0.5 % (0.0-0.8); Eosinophils # 0.1 10*3/uL (0.0-0.87); Eosinophils % 1.2 % (0.00-10.9); Hematocrit 29.4 VOL% (42.0-52.0); Hemoglobin 8.9 GM/DL (14.0-18.0); Immature Granulocytes % 0.3 %; Immature Granulocytes Absolute 0.02 #; Lymphocytes # 1.6 10*3/uL (1.4-4.0); Lymphocytes % 23.9 % (21.2-54.2); Mean Corpuscular HGB Conc 30.3 GM/DL (32-36); Mean Corpuscular Hemoglobin 25 PG (27-34); Mean Corpuscular Volume 83.1 FL (87-102); Mean Platelet Volume 10.6 FL (9.6-12.0); Monocytes # 0.8 10*3/uL (0.11-0.8); Monocytes % 11.7 % (1.7-12.7); Neutrophils # 4.2 10*3/uL (1.4-7.4); Neutrophils % 62.4 % (38.7-73.9); Platelet Count 210 T/CUMM (130-400); Red Blood Count 3.54 MC/CUMM (3.8-5.5); Red Cell Distribution Width 18.1 % (9.3-17.3); White Blood Count 6.7 T/CUMM (4-12)
[2017-12-19 05:12] LABS: Alanine Aminotransferase 22 U/L (16-61); Albumin 3.4 G/DL (3.4-5.0); Alkaline Phosphatase 126 U/L (45-117); Aspartate Amino Transferase 11 U/L (0-37); Bilirubin,Total < 0.39 MG/DL (0.2-1.0); Blood Urea Nitrogen 6 MG/DL (7-18); Calcium 8.7 MG/DL (8.5-10.1); Cholesterol 181 MG/DL (50-200); Glucose 105 MG/DL (74-106); HDL Cholesterol 68 MG/DL (40-60); Osmolality,Calculated 274.5 MOS/KG (273-304); Potassium 4.1 MMOL/L (3.5-5.1); Risk Ratio 2.66; Sodium 139 MMOL/L (136-145); Total Protein 6.7 G/DL (6.4-8.3); Triglycerides 126 MG/DL (2-150); VLDL CHOLESTEROL 25.2 MG/DL
[2017-12-19 05:13] LABS: Troponin I Only < 0.015 NG/ML (0.00-0.045)
[2017-12-19] MEDS: MORPHINE 4 MG/1 ML VIAL IV PRN ×4 (06:30→19:08)
[2017-12-19] MEDS: METOCLOPRAMIDE 5 MG TABLET PO SCH ×3 (08:37→17:11)
[2017-12-19] MEDS: ALUM/MAG/SIMETH/LIDO VISC 1:1 30 ML BOTTLE PO SCH ×2 (08:38→21:40)
[2017-12-19] MEDS: METOPROLOL TARTRATE 25 MG TABLET PO SCH ×2 (08:38→21:41)
[2017-12-19] MEDS: DOCUSATE SODIUM 100 MG CAPSULE PO SCH ×2 (08:38→21:40)
[2017-12-19] MEDS: PREGABALIN 75 MG CAPSULE PO SCH ×2 (08:39→21:41)
[2017-12-19] MEDS ORDERED: ENOXAPARIN 40 MG/0.4 ML SYRINGE SUBCUT SCH (09:00)
[2017-12-19] MEDS ORDERED: PANTOPRAZOLE 40 MG VIAL IV SCH (09:00)
[2017-12-19] MEDS ORDERED: PANTOPRAZOLE 40 MG TABLET PO SCH (09:00)
[2017-12-19] MEDS ORDERED: ASPIRIN EC 81 MG TABLET PO SCH (09:00)
[2017-12-19 15:40] VITALS: BP 113/69
[2017-12-19] MEDS ORDERED: ISOSORBIDE MONONITRATE 30 MG TABLET PO SCH (21:00)
== END 2017-12-19 21:35 | disposition home or self-care (01) ==
LOC: N.EDINP 21:18 → N.ED 21:18 → N.CC 12-19 01:20
PROVIDERS: ADMIT Internal Medicine; ATTEND Internal Medicine

== ENCOUNTER 2018-03-22 09:44 | Observation (INO) ==
[2018-03-22] MEDS ORDERED: MORPHINE 4 MG/1 ML VIAL IV STA ×2 (10:04→10:22)
[2018-03-22] MEDS ORDERED: ONDANSETRON 4 MG/2 ML VIAL IV STA (10:04)
[2018-03-22 10:10] LABS: Basophils % 0.3 % (0.0-0.8); Eosinophils # 0.1 10*3/uL (0.0-0.87); Eosinophils % 1.3 % (0.00-10.9); Hematocrit 27.3 VOL% (42.0-52.0); Immature Granulocytes % 0.2 %; Immature Granulocytes Absolute 0.01 #; Lymphocytes # 1.6 10*3/uL (1.4-4.0); Lymphocytes % 26.1 % (21.2-54.2); Mean Corpuscular HGB Conc 29.3 GM/DL (32-36); Mean Corpuscular Hemoglobin 22 PG (27-34); Mean Corpuscular Volume 75.6 FL (87-102); Mean Platelet Volume 10.4 FL (9.6-12.0); Monocytes # 0.4 10*3/uL (0.11-0.8); Monocytes % 7.4 % (1.7-12.7); Neutrophils # 3.9 10*3/uL (1.4-7.4); Neutrophils % 64.7 % (38.7-73.9); Platelet Count 246 T/CUMM (130-400); Red Blood Count 3.61 MC/CUMM (3.8-5.5); Red Cell Distribution Width 19.6 % (9.3-17.3)
[2018-03-22 10:33] LABS: Apearance,Urine CLEAR (Clear); Bilirubin,Urine Negative (Negative); Blood, Urine Negative (Negative); Glucose,Urine (UA) Negative (Negative); Ketones,Urine Negative (Negative); Mucus,Urine Occasional /LPF (Occasional); Nitrite,Urine Negative (Negative); Protein,Urine Negative; RBC,Urine <1 /HPF (0-4); Urine Color Straw (Yellow); Urine Urobilinogen < 2.0 EU/DL (0.2-1.0); WBC,Urine <1 /HPF (0-6)
[2018-03-22 10:35] LABS: Alanine Aminotransferase 24 U/L (16-61); Albumin 4.2 G/DL (3.4-5.0); Alkaline Phosphatase 114 U/L (45-117); Aspartate Amino Transferase 28 U/L (0-37); Bilirubin,Total < 0.39 MG/DL (0.2-1.0); Blood Urea Nitrogen 7 MG/DL (7-18); Calcium 8.6 MG/DL (8.5-10.1); Glucose 116 MG/DL (74-106); Osmolality,Calculated 275.5 MOS/KG (273-304); Potassium 4.1 MMOL/L (3.5-5.1); Sodium 139 MMOL/L (136-145); Total Protein 7.5 G/DL (6.4-8.3)
[2018-03-22 10:39] LABS: Lactic Acid 2.1 MMOL/L (0.4-2.0)
[2018-03-22] MEDS ORDERED: HYDROmorphone 2 MG/1 ML VIAL ONE (10:55)
[2018-03-22] MEDS ORDERED: HYDROmorphone 2 MG/1 ML VIAL IV STA ×2 (11:01→12:42)
[2018-03-22 11:16] LABS: Barbiturates Screen,Urine Negative (Negative); Benzodiazepines Screen,Urine Negative (Negative); Cannabinoid Screen,Urine Negative (Negative); Opiate Screen,Urine Negative (Negative); Phencyclidine Screen,Urine Negative (Negative)
[2018-03-22] MEDS ORDERED: ACETAMINOPHEN 325 MG TABLET PO PRN (14:10)
[2018-03-22] MEDS ORDERED: ONDANSETRON 4 MG/2 ML VIAL IV PRN (14:10)
[2018-03-22] MEDS: SODIUM CHLORIDE 0.9% 1,000 ML IV SCH ×2 (14:50→22:19)
[2018-03-22] MEDS: HYDROmorphone 2 MG/1 ML VIAL IV PRN ×2 (16:13→20:15)
[2018-03-22] MEDS ORDERED: MAGNESIUM SULF RIDER 2 GM in PREMIX 1 EACH IV ONE (18:53)
[2018-03-22] MEDS ORDERED: NITROGLYCERIN SL 0.4 MG TABLET SL PRN (19:02)
[2018-03-22] MEDS ORDERED: PROMETHAZINE 25 MG TABLET PO PRN (19:02)
[2018-03-22] MEDS ORDERED: BACLOFEN 10 MG TABLET PO PRN (19:02)
[2018-03-22] MEDS ORDERED: ISOSORBIDE MONONITRATE 30 MG TABLET PO SCH (19:09)
[2018-03-22] MEDS: KETOROLAC 15 MG/1 ML VIAL IV SCH (19:10)
[2018-03-22] MEDS ORDERED: ISOSORBIDE MONONITRATE 30 MG TABLET PO ONE (19:11)
[2018-03-22] MEDS ORDERED: PROMETHAZINE 25 MG/1 ML VIAL IM ONE (19:12)
[2018-03-22] MEDS ORDERED: PROMETHAZINE 25 MG/1 ML VIAL IM PRN (19:12)
[2018-03-22] MEDS ORDERED: SODIUM CHLORIDE 0.9% 1,000 ML IV PRN (19:15)
[2018-03-22] MEDS: methylPREDNISolone SOD SUC 40 MG/1 ML VIAL IV SCH (19:21)
[2018-03-22] MEDS ORDERED: ALUM/MAG/SIMETH/LIDO VISC 1:1 30 ML BOTTLE PO PRN (19:22)
[2018-03-22] MEDS: cloNIDine 0.1 MG TABLET PO SCH (20:10)
[2018-03-22] MEDS: GABAPENTIN 300 MG CAPSULE PO SCH (20:10)
[2018-03-22] MEDS: METOPROLOL TARTRATE 25 MG TABLET PO SCH (20:11)
[2018-03-22] MEDS: ACETAMINOPHEN 500 MG TABLET PO SCH (20:11)
[2018-03-22] MEDS: ISOSORBIDE MONONITRATE 30 MG TABLET PO SCH (23:21)
[2018-03-22] MEDS ORDERED: GLUCAGON 1 MG VIAL IM PRN (23:54)
[2018-03-22] MEDS ORDERED: DEXTROSE 50% 25 GM/50 ML VIAL IV PRN (23:54)
[2018-03-23] MEDS: HYDROmorphone 2 MG/1 ML VIAL IV PRN ×5 (00:48→23:48)
[2018-03-23] MEDS: KETOROLAC 15 MG/1 ML VIAL IV SCH ×4 (02:59→18:13)
[2018-03-23] MEDS: methylPREDNISolone SOD SUC 40 MG/1 ML VIAL IV SCH ×3 (03:03→18:12)
[2018-03-23] MEDS: SODIUM CHLORIDE 0.9% 1,000 ML IV SCH ×2 (06:40→15:33)
[2018-03-23] MEDS ORDERED: METOCLOPRAMIDE 5 MG TABLET PO SCH (07:30)
[2018-03-23] MEDS: LIDOCAINE 5% PATCH TRANSDERM SCH (08:31)
[2018-03-23] MEDS: INSULIN REGULAR 100 UNIT/ML SUBCUT SCH ×2 (09:09→15:50)
[2018-03-23] MEDS ORDERED: LIDOCAINE 2% 5 ML VIAL ONE (10:00)
[2018-03-23] MEDS ORDERED: PROPOFOL 200 MG/20 ML VIAL IV ONE (10:00)
[2018-03-23] MEDS ORDERED: ONDANSETRON 4 MG/2 ML VIAL ONE (10:00)
[2018-03-23 10:20] LABS: Basophils % 0.2 % (0.0-0.8); Eosinophils % 0.1 % (0.00-10.9); Hemoglobin 9.6 GM/DL (14.0-18.0); Immature Granulocytes % 0.1 %; Immature Granulocytes Absolute 0.01 #; Lymphocytes # 0.8 10*3/uL (1.4-4.0); Lymphocytes % 10.2 % (21.2-54.2); Mean Corpuscular Hemoglobin 24 PG (27-34); Mean Corpuscular Volume 79.6 FL (87-102); Mean Platelet Volume 10.2 FL (9.6-12.0); Monocytes # 0.4 10*3/uL (0.11-0.8); Monocytes % 5.1 % (1.7-12.7); Neutrophils # 6.9 10*3/uL (1.4-7.4); Neutrophils % 84.3 % (38.7-73.9); Platelet Count 216 T/CUMM (130-400); Red Blood Count 4.02 MC/CUMM (3.8-5.5); Red Cell Distribution Width 19.4 % (9.3-17.3); White Blood Count 8.2 T/CUMM (4-12)
[2018-03-23 10:53] LABS: Calcium 8.9 MG/DL (8.5-10.1); Osmolality,Calculated 273.8 MOS/KG (273-304); Potassium 4.7 MMOL/L (3.5-5.1)
[2018-03-23] MEDS ORDERED: fentaNYL 100 MCG/2 ML VIAL ONE (12:53)
[2018-03-23] MEDS: ACETAMINOPHEN 500 MG TABLET PO SCH ×2 (15:03→20:41)
[2018-03-23] MEDS: ISOSORBIDE MONONITRATE 30 MG TABLET PO SCH ×2 (15:03→20:42)
[2018-03-23] MEDS: cloNIDine 0.1 MG TABLET PO SCH ×2 (15:03→20:40)
[2018-03-23] MEDS: METOPROLOL TARTRATE 25 MG TABLET PO SCH ×2 (15:03→20:42)
[2018-03-23] MEDS: ASPIRIN EC 81 MG TABLET PO SCH (15:03)
[2018-03-23] MEDS: PANTOPRAZOLE 40 MG TABLET PO SCH (15:03)
[2018-03-23] MEDS: GABAPENTIN 300 MG CAPSULE PO SCH ×2 (15:04→20:40)
[2018-03-23] MEDS: SUCRALFATE 1 GM/10 ML UDCUP PO SCH ×2 (16:33→20:44)
[2018-03-24] MEDS: SODIUM CHLORIDE 0.9% 1,000 ML IV SCH ×2 (00:01→10:24)
[2018-03-24] MEDS: KETOROLAC 15 MG/1 ML VIAL IV SCH ×2 (00:56→06:20)
[2018-03-24] MEDS: methylPREDNISolone SOD SUC 40 MG/1 ML VIAL IV SCH (03:00)
[2018-03-24] MEDS: HYDROmorphone 2 MG/1 ML VIAL IV PRN (05:18)
[2018-03-24 06:36] LABS: Basophils % 0.1 % (0.0-0.8); Eosinophils % 0.2 % (0.00-10.9); Hematocrit 30.2 VOL% (42.0-52.0); Hemoglobin 9.1 GM/DL (14.0-18.0); Immature Granulocytes % 0.2 %; Immature Granulocytes Absolute 0.02 #; Lymphocytes # 0.6 10*3/uL (1.4-4.0); Lymphocytes % 5.9 % (21.2-54.2); Mean Corpuscular HGB Conc 30.1 GM/DL (32-36); Mean Corpuscular Hemoglobin 24 PG (27-34); Mean Corpuscular Volume 78.4 FL (87-102); Mean Platelet Volume 11.6 FL (9.6-12.0); Monocytes # 0.4 10*3/uL (0.11-0.8); Monocytes % 3.6 % (1.7-12.7); Platelet Count 203 T/CUMM (130-400); Red Blood Count 3.85 MC/CUMM (3.8-5.5); Red Cell Distribution Width 19.9 % (9.3-17.3)
[2018-03-24 07:00] LABS: Hypochromasia 1+; Microcytosis 1+
[2018-03-24 07:01] LABS: Ovalocytes Slight
[2018-03-24 07:02] LABS: Platelet Estimate Normal; Target Cells Slight
[2018-03-24 07:11] LABS: Calcium 8.6 MG/DL (8.5-10.1); Osmolality,Calculated 277.5 MOS/KG (273-304); Potassium 4.5 MMOL/L (3.5-5.1)
[2018-03-24] MEDS: LIDOCAINE 5% PATCH TRANSDERM SCH ×2 (09:22→09:24)
[2018-03-24] MEDS: PANTOPRAZOLE 40 MG TABLET PO SCH (09:23)
[2018-03-24] MEDS: ISOSORBIDE MONONITRATE 30 MG TABLET PO SCH ×2 (09:23→20:35)
[2018-03-24] MEDS: GABAPENTIN 300 MG CAPSULE PO SCH ×2 (09:23→20:35)
[2018-03-24] MEDS: cloNIDine 0.1 MG TABLET PO SCH ×2 (09:23→20:35)
[2018-03-24] MEDS: METOPROLOL TARTRATE 25 MG TABLET PO SCH ×2 (09:24→20:35)
[2018-03-24] MEDS: ASPIRIN EC 81 MG TABLET PO SCH (09:37)
[2018-03-24] MEDS: SUCRALFATE 1 GM/10 ML UDCUP PO SCH ×4 (09:37→20:35)
[2018-03-24] MEDS: ACETAMINOPHEN 500 MG TABLET PO SCH ×2 (10:21→20:35)
[2018-03-24] MEDS: INSULIN REGULAR 100 UNIT/ML SUBCUT SCH ×2 (10:22→18:46)
[2018-03-24] MEDS: prednisoLONE 5 MG TABLET PO SCH (11:31)
[2018-03-25] MEDS: INSULIN REGULAR 100 UNIT/ML SUBCUT SCH (08:11)
[2018-03-25] MEDS: prednisoLONE 5 MG TABLET PO SCH (08:52)
[2018-03-25] MEDS: SUCRALFATE 1 GM/10 ML UDCUP PO SCH ×2 (08:52→11:38)
[2018-03-25] MEDS: PANTOPRAZOLE 40 MG TABLET PO SCH (08:52)
[2018-03-25] MEDS: ACETAMINOPHEN 500 MG TABLET PO SCH (08:52)
[2018-03-25] MEDS: GABAPENTIN 300 MG CAPSULE PO SCH (08:53)
[2018-03-25] MEDS: ASPIRIN EC 81 MG TABLET PO SCH (08:53)
[2018-03-25] MEDS: cloNIDine 0.1 MG TABLET PO SCH (08:53)
[2018-03-25] MEDS: ISOSORBIDE MONONITRATE 30 MG TABLET PO SCH (08:53)
[2018-03-25] MEDS: METOPROLOL TARTRATE 25 MG TABLET PO SCH (08:53)
[2018-03-25] MEDS: LIDOCAINE 5% PATCH TRANSDERM SCH ×2 (08:55→11:41)
[2018-03-25 11:45] VITALS: BP 111/61
== END 2018-03-25 12:15 | disposition home or self-care (01) ==
LOC: N.ED 09:44 → N.EDINP 09:44 → N.5E 13:07
PROVIDERS: ADMIT Internal Medicine; ATTEND Internal Medicine

== ENCOUNTER 2018-06-18 23:37 | Inpatient (IN) ==
[2018-06-19 00:04] LABS: Basophils % 0.5 % (0.0-0.8); Eosinophils # 0.1 10*3/uL (0.0-0.87); Eosinophils % 0.9 % (0.00-10.9); Hematocrit 33.5 VOL% (42.0-52.0); Hemoglobin 10.5 GM/DL (14.0-18.0); Immature Granulocytes % 0.3 %; Immature Granulocytes Absolute 0.02 #; Lymphocytes # 1.8 10*3/uL (1.4-4.0); Lymphocytes % 24.3 % (21.2-54.2); Mean Corpuscular HGB Conc 31.3 GM/DL (32-36); Mean Corpuscular Hemoglobin 25 PG (27-34); Mean Corpuscular Volume 80.9 FL (87-102); Mean Platelet Volume 10.1 FL (9.6-12.0); Monocytes # 0.5 10*3/uL (0.11-0.8); Monocytes % 6.5 % (1.7-12.7); Neutrophils # 5.1 10*3/uL (1.4-7.4); Neutrophils % 67.5 % (38.7-73.9); Platelet Count 230 T/CUMM (130-400); Red Blood Count 4.14 MC/CUMM (3.8-5.5); Red Cell Distribution Width 19.8 % (9.3-17.3); White Blood Count 7.6 T/CUMM (4-12)
[2018-06-19 00:14] LABS: PT Patient Result 10.4 SECS; Partial Thromboplastin Time 25.9 SECS (0-40)
[2018-06-19 00:21] LABS: Alanine Aminotransferase 29 U/L (16-61); Albumin 3.8 G/DL (3.4-5.0); Alkaline Phosphatase 131 U/L (45-117); Aspartate Amino Transferase 14 U/L (0-37); Bilirubin,Total < 0.39 MG/DL (0.2-1.0); Blood Urea Nitrogen 19 MG/DL (7-18); Calcium 9.1 MG/DL (8.5-10.1); Glucose 465 MG/DL (74-106); Osmolality,Calculated 291.1 MOS/KG (273-304); Potassium 4.5 MMOL/L (3.5-5.1); Sodium 135 MMOL/L (136-145); Total Protein 7.4 G/DL (6.4-8.3)
[2018-06-19] MEDS ORDERED: MAGNESIUM SULF RIDER 2 GM in PREMIX 1 EACH IV STA (00:31)
[2018-06-19] MEDS ORDERED: PANTOPRAZOLE 40 MG VIAL IV STA (00:31)
[2018-06-19] MEDS ORDERED: NITROGLYCERIN 2% OINT 1 INCH/GM PACK TOP STA (00:31)
[2018-06-19] MEDS ORDERED: ALUM/MAG/SIMETH/LIDO VISC 1:1 30 ML BOTTLE PO STA (00:31)
[2018-06-19] MEDS ORDERED: ASPIRIN 325 MG TABLET PO STA (00:31)
[2018-06-19] MEDS ORDERED: MORPHINE 4 MG/1 ML VIAL IV STA (00:31)
[2018-06-19] MEDS ORDERED: ONDANSETRON 4 MG/2 ML VIAL IV STA (00:31)
[2018-06-19] MEDS ORDERED: SODIUM CHLORIDE 0.9% 500 ML IV STA (00:31)
[2018-06-19] MEDS ORDERED: INSULIN REGULAR 100 UNIT/ML IV STA (00:52)
[2018-06-19 01:55] LABS: Apearance,Urine CLEAR (Clear); Bilirubin,Urine Negative (Negative); Blood, Urine Negative (Negative); Glucose,Urine (UA) Negative (Negative); Ketones,Urine 5 mg/dL (Negative); Mucus,Urine Occasional /LPF (Occasional); Nitrite,Urine Negative (Negative); Protein,Urine Negative; RBC,Urine <1 /HPF (0-4); Urine Color Yellow (Yellow); Urine Specific Gravity 1.012 (1.001-1.035); Urine Urobilinogen < 2.0 EU/DL (0.2-1.0); WBC,Urine 1 /HPF (0-6)
[2018-06-19 02:08] LABS: Barbiturates Screen,Urine Negative (Negative); Benzodiazepines Screen,Urine Negative (Negative); Cannabinoid Screen,Urine Negative (Negative); Opiate Screen,Urine Positive (Negative); Phencyclidine Screen,Urine Negative (Negative)
[2018-06-19] MEDS ORDERED: ONDANSETRON 4 MG/2 ML VIAL IV PRN (02:35)
[2018-06-19] MEDS ORDERED: ACETAMINOPHEN 325 MG TABLET PO PRN (02:35)
[2018-06-19] MEDS ORDERED: INFLUENZA VIRUS VACCINE 0.5 ML SYRINGE IM ONE (03:01)
[2018-06-19] MEDS: SODIUM CHLORIDE 0.9% 1,000 ML IV SCH ×3 (03:54→20:51)
[2018-06-19] MEDS: MORPHINE 4 MG/1 ML VIAL IV PRN ×4 (05:40→23:33)
[2018-06-19] MEDS: NITROGLYCERIN 2% OINT 1 INCH/GM PACK TOP SCH ×3 (05:44→17:31)
[2018-06-19 06:04] LABS: Basophils % 0.5 % (0.0-0.8); Eosinophils # 0.1 10*3/uL (0.0-0.87); Eosinophils % 0.7 % (0.00-10.9); Hematocrit 29.3 VOL% (42.0-52.0); Immature Granulocytes % 0.3 %; Immature Granulocytes Absolute 0.02 #; Lymphocytes # 1.2 10*3/uL (1.4-4.0); Lymphocytes % 16.4 % (21.2-54.2); Mean Corpuscular HGB Conc 30.7 GM/DL (32-36); Mean Corpuscular Hemoglobin 25 PG (27-34); Mean Corpuscular Volume 81.6 FL (87-102); Mean Platelet Volume 10.4 FL (9.6-12.0); Monocytes # 0.6 10*3/uL (0.11-0.8); Neutrophils # 5.5 10*3/uL (1.4-7.4); Neutrophils % 74.1 % (38.7-73.9); PT Patient Result 10.4 SECS; Platelet Count 199 T/CUMM (130-400); Red Blood Count 3.59 MC/CUMM (3.8-5.5); Red Cell Distribution Width 19.7 % (9.3-17.3); White Blood Count 7.4 T/CUMM (4-12)
[2018-06-19 06:29] LABS: Albumin 3.3 G/DL (3.4-5.0); Bilirubin,Total 0.6 MG/DL (0.2-1.0); Calcium 8.3 MG/DL (8.5-10.1); Osmolality,Calculated 278.1 MOS/KG (273-304); Potassium 3.3 MMOL/L (3.5-5.1); Risk Ratio 3.16; Total Protein 6.8 G/DL (6.4-8.3); VLDL CHOLESTEROL 18.4 MG/DL
[2018-06-19] MEDS ORDERED: ENOXAPARIN 40 MG/0.4 ML SYRINGE SUBCUT SCH (09:00)
[2018-06-19] MEDS: KETOROLAC 15 MG/1 ML VIAL IV SCH ×2 (09:52→17:45)
[2018-06-19] MEDS: PANTOPRAZOLE 40 MG VIAL IV SCH (09:54)
[2018-06-19] MEDS: SUCRALFATE 1 GM/10 ML UDCUP PO SCH ×2 (09:55→16:40)
[2018-06-19] MEDS: DOCUSATE SODIUM 100 MG CAPSULE PO SCH ×2 (09:58→20:44)
[2018-06-19] MEDS: GABAPENTIN 100 MG CAPSULE PO SCH ×2 (16:40→20:44)
[2018-06-19] MEDS: ROSUVASTATIN 10 MG TABLET PO SCH (20:43)
[2018-06-19] MEDS ORDERED: POTASSIUM CHLORIDE 20 MEQ TABLET PO ONE (22:37)
[2018-06-19] MEDS ORDERED: NITROGLYCERIN SL 0.4 MG TABLET SL PRN (22:38)
[2018-06-19] MEDS ORDERED: BACLOFEN 10 MG TABLET PO PRN (22:38)
[2018-06-19] MEDS ORDERED: PROMETHAZINE 25 MG TABLET PO PRN (22:38)
[2018-06-19] MEDS ORDERED: GABAPENTIN 300 MG CAPSULE PO SCH (23:00)
[2018-06-20] MEDS: METOPROLOL TARTRATE 25 MG TABLET PO SCH ×3 (00:01→21:56)
[2018-06-20] MEDS: NITROGLYCERIN 2% OINT 1 INCH/GM PACK TOP SCH ×4 (00:03→17:57)
[2018-06-20] MEDS: KETOROLAC 15 MG/1 ML VIAL IV SCH ×3 (02:14→17:25)
[2018-06-20] MEDS: SODIUM CHLORIDE 0.9% 1,000 ML IV SCH ×3 (04:55→17:50)
[2018-06-20 05:15] LABS: Basophils % 0.6 % (0.0-0.8); Eosinophils # 0.1 10*3/uL (0.0-0.87); Eosinophils % 2.1 % (0.00-10.9); Hematocrit 27.4 VOL% (42.0-52.0); Hemoglobin 8.1 GM/DL (14.0-18.0); Lymphocytes # 1.6 10*3/uL (1.4-4.0); Mean Corpuscular HGB Conc 29.6 GM/DL (32-36); Mean Corpuscular Hemoglobin 25 PG (27-34); Mean Corpuscular Volume 83.5 FL (87-102); Mean Platelet Volume 10.8 FL (9.6-12.0); Monocytes # 0.5 10*3/uL (0.11-0.8); Monocytes % 10.9 % (1.7-12.7); Neutrophils # 2.5 10*3/uL (1.4-7.4); Neutrophils % 53.4 % (38.7-73.9); Platelet Count 199 T/CUMM (130-400); Red Blood Count 3.28 MC/CUMM (3.8-5.5); Red Cell Distribution Width 19.9 % (9.3-17.3); White Blood Count 4.7 T/CUMM (4-12)
[2018-06-20 05:52] LABS: Calcium 7.6 MG/DL (8.5-10.1); Osmolality,Calculated 281.8 MOS/KG (273-304); Potassium 4.1 MMOL/L (3.5-5.1)
[2018-06-20] MEDS: MORPHINE 4 MG/1 ML VIAL IV PRN (06:14)
[2018-06-20] MEDS ORDERED: DEXTROSE 50% 25 GM/50 ML VIAL IV STA (07:35)
[2018-06-20] MEDS ORDERED: LIDOCAINE 100 MG/5 ML SYRINGE ONE (09:00)
[2018-06-20] MEDS ORDERED: PROPOFOL 200 MG/20 ML VIAL IV ONE (09:00)
[2018-06-20] MEDS ORDERED: POTASSIUM CHLORIDE 20 MEQ TABLET PO SCH (09:00)
[2018-06-20] MEDS: SUCRALFATE 1 GM/10 ML UDCUP PO SCH ×3 (09:06→17:51)
[2018-06-20] MEDS: DOCUSATE SODIUM 100 MG CAPSULE PO SCH ×2 (09:06→21:55)
[2018-06-20] MEDS: GABAPENTIN 100 MG CAPSULE PO SCH ×3 (09:06→21:55)
[2018-06-20] MEDS: METOCLOPRAMIDE 5 MG TABLET PO SCH ×3 (09:06→17:51)
[2018-06-20] MEDS: PANTOPRAZOLE 40 MG VIAL IV SCH (09:09)
[2018-06-20] MEDS: ASPIRIN EC 81 MG TABLET PO SCH (14:47)
[2018-06-20] MEDS ORDERED: ALUM/MAG/SIMETH/LIDO VISC 1:1 30 ML BOTTLE PO PRN (16:33)
[2018-06-20] MEDS: ROSUVASTATIN 10 MG TABLET PO SCH (21:55)
[2018-06-20] MEDS: ISOSORBIDE MONONITRATE 30 MG TABLET PO SCH ×2 (21:56)
[2018-06-20] MEDS ORDERED: SODIUM CHLORIDE 0.9% 1,000 ML IV PRN (22:03)
[2018-06-21] MEDS: NITROGLYCERIN 2% OINT 1 INCH/GM PACK TOP SCH ×4 (00:19→17:57)
[2018-06-21] MEDS: KETOROLAC 15 MG/1 ML VIAL IV SCH ×3 (03:05→17:57)
[2018-06-21] MEDS: SODIUM CHLORIDE 0.9% 1,000 ML IV SCH ×2 (03:06→16:40)
[2018-06-21] MEDS: ALUM/MAG/SIMETH/LIDO VISC 1:1 30 ML BOTTLE PO SCH ×3 (05:12→22:07)
[2018-06-21 05:50] LABS: Basophils % 0.4 % (0.0-0.8); Eosinophils # 0.1 10*3/uL (0.0-0.87); Eosinophils % 2.6 % (0.00-10.9); Hematocrit 28.7 VOL% (42.0-52.0); Hemoglobin 8.6 GM/DL (14.0-18.0); Immature Granulocytes % 0.2 %; Immature Granulocytes Absolute 0.01 #; Lymphocytes # 1.8 10*3/uL (1.4-4.0); Lymphocytes % 35.8 % (21.2-54.2); Mean Corpuscular Hemoglobin 25 PG (27-34); Mean Platelet Volume 10.3 FL (9.6-12.0); Monocytes # 0.6 10*3/uL (0.11-0.8); Monocytes % 11.3 % (1.7-12.7); Neutrophils # 2.5 10*3/uL (1.4-7.4); Neutrophils % 49.7 % (38.7-73.9); Platelet Count 196 T/CUMM (130-400); Red Cell Distribution Width 19.9 % (9.3-17.3)
[2018-06-21 05:53] LABS: Calcium 8.1 MG/DL (8.5-10.1); Potassium 3.6 MMOL/L (3.5-5.1)
[2018-06-21] MEDS: SUCRALFATE 1 GM/10 ML UDCUP PO SCH ×2 (08:28→16:40)
[2018-06-21] MEDS: POTASSIUM CHLORIDE 20 MEQ PACK PO SCH (08:28)
[2018-06-21] MEDS: DOCUSATE SODIUM 100 MG CAPSULE PO SCH ×2 (08:29→22:05)
[2018-06-21] MEDS: GABAPENTIN 100 MG CAPSULE PO SCH ×3 (08:29→22:05)
[2018-06-21] MEDS: METOPROLOL TARTRATE 25 MG TABLET PO SCH ×2 (08:29→22:06)
[2018-06-21] MEDS: PANTOPRAZOLE 40 MG VIAL IV SCH (08:29)
[2018-06-21] MEDS: ASPIRIN EC 81 MG TABLET PO SCH (08:29)
[2018-06-21] MEDS: METOCLOPRAMIDE 5 MG TABLET PO SCH ×3 (08:29→16:40)
[2018-06-21] MEDS: BACLOFEN 10 MG TABLET PO SCH ×3 (08:29→22:05)
[2018-06-21] MEDS: ROSUVASTATIN 10 MG TABLET PO SCH (22:05)
[2018-06-21] MEDS: ISOSORBIDE MONONITRATE 30 MG TABLET PO SCH (22:06)
[2018-06-22] MEDS: SODIUM CHLORIDE 0.9% 1,000 ML IV SCH ×2 (01:57→09:36)
[2018-06-22] MEDS: NITROGLYCERIN 2% OINT 1 INCH/GM PACK TOP SCH ×3 (01:58→11:49)
[2018-06-22] MEDS: KETOROLAC 15 MG/1 ML VIAL IV SCH ×2 (01:59→09:33)
[2018-06-22] MEDS: ALUM/MAG/SIMETH/LIDO VISC 1:1 30 ML BOTTLE PO SCH ×2 (05:32→14:49)
[2018-06-22 08:03] LABS: Basophils % 0.7 % (0.0-0.8); Eosinophils # 0.1 10*3/uL (0.0-0.87); Eosinophils % 1.9 % (0.00-10.9); Hematocrit 33.5 VOL% (42.0-52.0); Immature Granulocytes % 0.2 %; Immature Granulocytes Absolute 0.01 #; Lymphocytes # 1.2 10*3/uL (1.4-4.0); Lymphocytes % 28.1 % (21.2-54.2); Mean Corpuscular Hemoglobin 25 PG (27-34); Mean Corpuscular Volume 81.7 FL (87-102); Mean Platelet Volume 10.3 FL (9.6-12.0); Monocytes # 0.4 10*3/uL (0.11-0.8); Monocytes % 9.7 % (1.7-12.7); Neutrophils # 2.6 10*3/uL (1.4-7.4); Neutrophils % 59.4 % (38.7-73.9); Platelet Count 171 T/CUMM (130-400); Red Cell Distribution Width 18.7 % (9.3-17.3); White Blood Count 4.3 T/CUMM (4-12)
[2018-06-22 08:15] LABS: Hemoglobin 10.4 GM/DL (14.0-18.0)
[2018-06-22] MEDS: PANTOPRAZOLE 40 MG VIAL IV SCH (09:32)
[2018-06-22] MEDS: SUCRALFATE 1 GM/10 ML UDCUP PO SCH (09:33)
[2018-06-22] MEDS: METOPROLOL TARTRATE 25 MG TABLET PO SCH (09:36)
[2018-06-22] MEDS: METOCLOPRAMIDE 5 MG TABLET PO SCH ×2 (09:36→11:49)
[2018-06-22] MEDS: POTASSIUM CHLORIDE 20 MEQ PACK PO SCH (09:36)
[2018-06-22] MEDS: ASPIRIN EC 81 MG TABLET PO SCH (09:36)
[2018-06-22] MEDS: GABAPENTIN 100 MG CAPSULE PO SCH ×2 (09:37→14:49)
[2018-06-22] MEDS: DOCUSATE SODIUM 100 MG CAPSULE PO SCH (09:37)
[2018-06-22] MEDS: BACLOFEN 10 MG TABLET PO SCH ×2 (09:37→14:49)
[2018-06-22 11:45] VITALS: BP 131/61
== END 2018-06-22 16:05 | disposition home or self-care (01) | DRG 384 ==
LOC: N.ED 23:37 → N.EDINP 06-19 01:15 → N.TELES 06-19 02:27
PROVIDERS: ADMIT Internal Medicine; ATTEND Internal Medicine

== ENCOUNTER 2019-07-14 02:37 | Inpatient (IN) ==
[2019-07-14] MEDS ORDERED: ALUM/MAG/SIMETH/LIDO VISC 1:1 30 ML BOTTLE PO STA (02:58)
[2019-07-14] MEDS ORDERED: ONDANSETRON 4 MG/2 ML VIAL IV ONE (03:00)
[2019-07-14 03:13] LABS: Basophils % 0.6 % (0.0-0.8); Eosinophils # 0.1 10*3/uL (0.0-0.87); Eosinophils % 0.9 % (0.00-10.9); Hematocrit 30.3 VOL% (42.0-52.0); Hemoglobin 9.2 GM/DL (14.0-18.0); Immature Granulocytes % 0.2 %; Immature Granulocytes Absolute 0.01 #; Lymphocytes # 1.3 10*3/uL (1.4-4.0); Mean Corpuscular HGB Conc 30.4 GM/DL (32-36); Mean Corpuscular Volume 86.1 FL (87-102); Mean Platelet Volume 10.1 FL (9.6-12.0); Monocytes % 7.2 % (1.7-12.7); Neutrophils % 71.1 % (38.7-73.9); Platelet Count 241 T/CUMM (130-400); Red Blood Count 3.52 MC/CUMM (3.8-5.5); Red Cell Distribution Width 16.6 % (9.3-17.3); White Blood Count 6.5 T/CUMM (4-12)
[2019-07-14] MEDS ORDERED: MORPHINE 4 MG/1 ML VIAL IV STA ×2 (03:32→05:23)
[2019-07-14 03:37] LABS: Alanine Aminotransferase 14 U/L (16-61); Alkaline Phosphatase 108 U/L (45-117); Aspartate Amino Transferase 19 U/L (0-37); Bilirubin,Total < 0.39 MG/DL (0.2-1.0); Blood Urea Nitrogen 5 MG/DL (7-18); Calcium 8.7 MG/DL (8.5-10.1); Estimated Glom Filtration Rate 92 ML/MIN; Glucose 107 MG/DL (74-106); Total Protein 7.9 G/DL (6.4-8.3)
[2019-07-14] MEDS ORDERED: ASPIRIN CHEW 81 MG TABLET PO STA (03:50)
[2019-07-14] MEDS ORDERED: NITROGLYCERIN SL 0.4 MG TABLET SL STA (03:51)
[2019-07-14] MEDS ORDERED: ASPIRIN 325 MG TABLET ONE (03:53)
[2019-07-14] MEDS ORDERED: HYDROmorphone 2 MG/1 ML VIAL IV STA (04:28)
[2019-07-14] MEDS ORDERED: HYDROmorphone 2 MG/1 ML VIAL ONE (04:29)
[2019-07-14 04:48] LABS: INR 0.9; PT Patient Result 10.1 SECS (9.6-12.2); Partial Thromboplastin Time 26.6 SECS (20.8-36.0)
[2019-07-14] MEDS ORDERED: ONDANSETRON 4 MG/2 ML VIAL IV STA (05:23)
[2019-07-14] MEDS ORDERED: METOPROLOL TARTRATE 5 MG/5 ML VIAL IV STA (05:35)
[2019-07-14] MEDS ORDERED: HEPARIN 5,000 UNIT/1 ML VIAL IV ONE (05:35)
[2019-07-14] MEDS ORDERED: ONDANSETRON 4 MG/2 ML VIAL IV PRN (05:44)
[2019-07-14] MEDS ORDERED: NITROGLYCERIN SL 0.4 MG TABLET SL PRN (05:51)
[2019-07-14] MEDS ORDERED: INFLUENZA VIRUS VACCINE 0.5 ML SYRINGE IM ONE (06:30)
[2019-07-14] MEDS ORDERED: PNEUMOCOCCAL VACCINE (23 VALENT) 0.5 ML VIAL IM ONE (06:30)
[2019-07-14] MEDS ORDERED: ALUM/MAG/SIMETH/LIDO VISC 1:1 30 ML BOTTLE PO ONE (07:24)
[2019-07-14] MEDS ORDERED: PROMETHAZINE 25 MG/1 ML VIAL IM PRN (07:25)
[2019-07-14] MEDS ORDERED: LORazepam 2 MG/1 ML VIAL ONE (07:41)
[2019-07-14] MEDS: NICOTINE 21 MG/24 HR PATCH TRANSDERM SCH (08:00)
[2019-07-14] MEDS: LORazepam 2 MG/1 ML VIAL IV SCH ×2 (08:00→20:30)
[2019-07-14] MEDS: ALUM/MAG/SIMETH/LIDO VISC 1:1 30 ML BOTTLE PO ONE ×2 (08:50→11:04)
[2019-07-14] MEDS ORDERED: PANTOPRAZOLE 40 MG TABLET PO SCH (09:00)
[2019-07-14] MEDS ORDERED: PANTOPRAZOLE 40 MG VIAL IV SCH (09:00)
[2019-07-14] MEDS ORDERED: cloNIDine 0.1 MG TABLET PO PRN (09:28)
[2019-07-14] MEDS: HYDROmorphone 2 MG/1 ML VIAL IV PRN ×2 (14:40→20:25)
[2019-07-14] MEDS: ENOXAPARIN 60 MG/0.6 ML SYRINGE SUBCUT SCH (15:54)
[2019-07-14] MEDS: ALUMINUM/MAGNES/SIMETH MAX STR 30 ML UDCUP PO PRN ×2 (17:25→20:05)
[2019-07-14] MEDS: ROSUVASTATIN 10 MG TABLET PO SCH (20:10)
[2019-07-14] MEDS: PANTOPRAZOLE 40 MG VIAL IV SCH (20:31)
[2019-07-14] MEDS ORDERED: GABAPENTIN 300 MG CAPSULE PO SCH (21:00)
[2019-07-15] MEDS: HYDROmorphone 2 MG/1 ML VIAL IV PRN (01:49)
[2019-07-15] MEDS: ALUMINUM/MAGNES/SIMETH MAX STR 30 ML UDCUP PO PRN (01:50)
[2019-07-15] MEDS: ENOXAPARIN 60 MG/0.6 ML SYRINGE SUBCUT SCH ×2 (02:28→14:30)
[2019-07-15] MEDS: NICOTINE 21 MG/24 HR PATCH TRANSDERM SCH (08:23)
[2019-07-15] MEDS: PANTOPRAZOLE 40 MG VIAL IV SCH ×2 (08:23→21:38)
[2019-07-15] MEDS: LORazepam 2 MG/1 ML VIAL IV SCH ×2 (08:23→21:36)
[2019-07-15] MEDS ORDERED: MAGNESIUM SULF RIDER 2 GM in PREMIX 1 EACH IV ONE ×2 (08:39→14:00)
[2019-07-15] MEDS ORDERED: POTASSIUM CHLORIDE 20 MEQ TABLET PO ONE (08:39)
[2019-07-15] MEDS: LIDOCAINE 5% PATCH TRANSDERM SCH (10:51)
[2019-07-15] MEDS: SUCRALFATE 1 GM/10 ML UDCUP PO SCH ×2 (10:52→17:02)
[2019-07-15] MEDS ORDERED: ALUM/MAG/SIMETH/LIDO VISC 1:1 30 ML BOTTLE PO ONE (11:00)
[2019-07-15] MEDS ORDERED: traMADol 50 MG TABLET PO ONE (11:00)
[2019-07-15] MEDS: traMADol 50 MG TABLET PO SCH ×3 (13:05→21:36)
[2019-07-15] MEDS ORDERED: FUROSEMIDE 20 MG/2 ML VIAL IV ONE (14:00)
[2019-07-15] MEDS ORDERED: POTASSIUM CHLORIDE 20 MEQ TABLET PO PRN (14:08)
[2019-07-15] MEDS: GABAPENTIN 300 MG CAPSULE PO SCH ×2 (14:30→21:36)
[2019-07-15] MEDS: KETOROLAC 15 MG/1 ML VIAL IV SCH ×2 (14:30→21:37)
[2019-07-15] MEDS: methylPREDNISolone SOD SUC 40 MG/1 ML VIAL IV SCH ×2 (14:30→21:37)
[2019-07-15] MEDS: ALUM/MAG/SIMETH/LIDO VISC 1:1 30 ML BOTTLE PO SCH ×2 (14:30→21:36)
[2019-07-15] MEDS: POTASSIUM CHLORIDE 20 MEQ TABLET PO SCH ×2 (15:01→21:36)
[2019-07-15] MEDS: ROSUVASTATIN 10 MG TABLET PO SCH (21:36)
[2019-07-16] MEDS: ENOXAPARIN 60 MG/0.6 ML SYRINGE SUBCUT SCH ×2 (04:03→17:00)
[2019-07-16] MEDS: ALUM/MAG/SIMETH/LIDO VISC 1:1 30 ML BOTTLE PO SCH ×3 (05:32→22:31)
[2019-07-16] MEDS: methylPREDNISolone SOD SUC 40 MG/1 ML VIAL IV SCH ×3 (05:32→22:31)
[2019-07-16] MEDS: KETOROLAC 15 MG/1 ML VIAL IV SCH ×3 (05:33→22:31)
[2019-07-16 05:36] LABS: Basophils % 0.4 % (0.0-0.8); Eosinophils # 0.1 10*3/uL (0.0-0.87); Eosinophils % 1.3 % (0.00-10.9); Hematocrit 31.2 VOL% (42.0-52.0); Hemoglobin 9.6 GM/DL (14.0-18.0); Immature Granulocytes % 0.3 %; Immature Granulocytes Absolute 0.02 #; Lymphocytes # 1.6 10*3/uL (1.4-4.0); Lymphocytes % 24.2 % (21.2-54.2); Mean Corpuscular HGB Conc 30.8 GM/DL (32-36); Mean Platelet Volume 10.7 FL (9.6-12.0); Monocytes % 11.5 % (1.7-12.7); Neutrophils % 62.3 % (38.7-73.9); Platelet Count 250 T/CUMM (130-400); Red Blood Count 3.67 MC/CUMM (3.8-5.5); Red Cell Distribution Width 16.5 % (9.3-17.3); White Blood Count 6.7 T/CUMM (4-12)
[2019-07-16 05:59] LABS: Calcium 8.6 MG/DL (8.5-10.1); Osmolality,Calculated 279.3 MOS/KG (273-304)
[2019-07-16] MEDS: SUCRALFATE 1 GM/10 ML UDCUP PO SCH ×3 (09:17→17:01)
[2019-07-16] MEDS: LORazepam 2 MG/1 ML VIAL IV SCH ×2 (09:19→21:08)
[2019-07-16] MEDS: traMADol 50 MG TABLET PO SCH ×4 (09:19→21:10)
[2019-07-16] MEDS: NICOTINE 21 MG/24 HR PATCH TRANSDERM SCH (09:20)
[2019-07-16] MEDS: LIDOCAINE 5% PATCH TRANSDERM SCH (09:21)
[2019-07-16] MEDS: PANTOPRAZOLE 40 MG VIAL IV SCH ×2 (09:22→21:11)
[2019-07-16] MEDS: GABAPENTIN 300 MG CAPSULE PO SCH ×3 (13:39→21:10)
[2019-07-16] MEDS: POTASSIUM CHLORIDE 20 MEQ TABLET PO SCH ×2 (13:39→21:09)
[2019-07-16] MEDS: ALBUTEROL/IPRATROPIUM 3 ML NEB RESP TX SCH (19:57)
[2019-07-16] MEDS: ROSUVASTATIN 10 MG TABLET PO SCH (21:09)
[2019-07-17] MEDS: ALBUTEROL/IPRATROPIUM 3 ML NEB RESP TX SCH ×2 (01:42→07:20)
[2019-07-17] MEDS: ENOXAPARIN 60 MG/0.6 ML SYRINGE SUBCUT SCH (05:14)
[2019-07-17] MEDS: ALUM/MAG/SIMETH/LIDO VISC 1:1 30 ML BOTTLE PO SCH (05:14)
[2019-07-17] MEDS: KETOROLAC 15 MG/1 ML VIAL IV SCH (05:16)
[2019-07-17] MEDS: methylPREDNISolone SOD SUC 40 MG/1 ML VIAL IV SCH (05:17)
[2019-07-17 07:53] VITALS: BP 121/55
[2019-07-17] MEDS: LIDOCAINE 5% PATCH TRANSDERM SCH (09:15)
[2019-07-17] MEDS: NICOTINE 21 MG/24 HR PATCH TRANSDERM SCH (09:15)
[2019-07-17] MEDS: SUCRALFATE 1 GM/10 ML UDCUP PO SCH (09:19)
[2019-07-17] MEDS: PANTOPRAZOLE 40 MG VIAL IV SCH (09:20)
[2019-07-17] MEDS: LORazepam 2 MG/1 ML VIAL IV SCH (09:22)
[2019-07-17] MEDS: GABAPENTIN 300 MG CAPSULE PO SCH (09:23)
[2019-07-17] MEDS: POTASSIUM CHLORIDE 20 MEQ TABLET PO SCH (09:23)
[2019-07-17] MEDS: traMADol 50 MG TABLET PO SCH (09:23)
== END 2019-07-17 10:33 | disposition home or self-care (01) | DRG 384 ==
LOC: N.ED 02:37 → N.EDINP 05:44 → N.ICU 06:18 → N.TELEN 07-15 19:01
PROVIDERS: ADMIT Internal Medicine; ATTEND Internal Medicine

== ENCOUNTER 2019-09-22 18:50 | Inpatient (IN) ==
[2019-09-22] MEDS ORDERED: KETOROLAC 30 MG/1 ML VIAL IV STA ×2 (19:26→21:30)
[2019-09-22] MEDS ORDERED: ALUM/MAG/SIMETH/LIDO VISC 1:1 30 ML BOTTLE PO STA (19:26)
[2019-09-22] MEDS ORDERED: DICYCLOMINE 20 MG/2 ML AMP IM ONE (19:26)
[2019-09-22 19:42] LABS: Basophils % 0.3 % (0.0-0.8); Eosinophils % 0.3 % (0.00-10.9); Hematocrit 35.9 VOL% (42.0-52.0); Hemoglobin 10.7 GM/DL (14.0-18.0); Immature Granulocytes % 0.4 %; Immature Granulocytes Absolute 0.03 #; Lymphocytes # 0.9 10*3/uL (1.4-4.0); Lymphocytes % 12.5 % (21.2-54.2); Mean Corpuscular HGB Conc 29.8 GM/DL (32-36); Mean Corpuscular Volume 79.8 FL (87-102); Mean Platelet Volume 10.8 FL (9.6-12.0); Monocytes % 7.4 % (1.7-12.7); NRBC # 0.03 10*3/uL; Neutrophils % 79.1 % (38.7-73.9); Platelet Count 340 T/CUMM (130-400); Red Cell Distribution Width 17.5 % (9.3-17.3)
[2019-09-22 19:56] LABS: Alanine Aminotransferase 15 U/L (16-61); Albumin 3.6 G/DL (3.4-5.0); Alkaline Phosphatase 123 U/L (45-117); Aspartate Amino Transferase 18 U/L (0-37); Bilirubin,Total < 0.39 MG/DL (0.2-1.0); Blood Urea Nitrogen 11 MG/DL (7-18); Calcium 9.2 MG/DL (8.5-10.1); Estimated Glom Filtration Rate 82 ML/MIN; Glucose 130 MG/DL (74-106); Osmolality,Calculated 260.8 MOS/KG (273-304); Total Protein 8.4 G/DL (6.4-8.3); Troponin I < 0.015 NG/ML (0.00-0.045)
[2019-09-22] MEDS ORDERED: SODIUM CHLORIDE 0.9% 1,000 ML IV STA (21:29)
[2019-09-22] MEDS ORDERED: MORPHINE 4 MG/1 ML VIAL IV PRN ×2 (21:29→22:03)
[2019-09-22] MEDS ORDERED: ONDANSETRON 4 MG/2 ML VIAL IV STA (21:30)
[2019-09-22] MEDS ORDERED: INFLUENZA VIRUS VACCINE 0.5 ML SYRINGE IM ONE (22:02)
[2019-09-22] MEDS ORDERED: ACETAMINOPHEN 325 MG TABLET PO PRN (22:03)
[2019-09-22] MEDS ORDERED: ONDANSETRON 4 MG/2 ML VIAL IV PRN (22:03)
[2019-09-22] MEDS ORDERED: PNEUMOCOCCAL VACCINE (23 VALENT) 0.5 ML VIAL IM ONE (22:04)
[2019-09-22] MEDS: MORPHINE 4 MG/1 ML VIAL IV PRN (22:40)
[2019-09-22] MEDS ORDERED: SODIUM CHLORIDE 0.9% 1,000 ML IV ONE (22:44)
[2019-09-22] MEDS ORDERED: MAGNESIUM SULF RIDER 2 GM in PREMIX 1 EACH IV PRN (22:44)
[2019-09-22] MEDS ORDERED: MAGNESIUM SULF RIDER 4 GM in PREMIX 1 EACH IV PRN (22:44)
[2019-09-22 23:09] LABS: Basophils % 0.2 % (0.0-0.8); Hematocrit 32.9 VOL% (42.0-52.0); Hemoglobin 9.8 GM/DL (14.0-18.0); Immature Granulocytes % 0.3 %; Immature Granulocytes Absolute 0.03 #; Lymphocytes # 0.5 10*3/uL (1.4-4.0); Lymphocytes % 5.6 % (21.2-54.2); Mean Corpuscular HGB Conc 29.8 GM/DL (32-36); Mean Corpuscular Volume 78.5 FL (87-102); Mean Platelet Volume 10.7 FL (9.6-12.0); NRBC # 0.03 10*3/uL; Neutrophils % 84.9 % (38.7-73.9); Platelet Count 301 T/CUMM (130-400); Red Blood Count 4.19 MC/CUMM (3.8-5.5); Red Cell Distribution Width 17.3 % (9.3-17.3); White Blood Count 8.9 T/CUMM (4-12)
[2019-09-22 23:16] LABS: Albumin 3.2 G/DL (3.4-5.0); Bilirubin,Total 0.4 MG/DL (0.2-1.0); Calcium 8.7 MG/DL (8.5-10.1); Osmolality,Calculated 261.8 MOS/KG (273-304); Total Protein 7.3 G/DL (6.4-8.3)
[2019-09-22] MEDS: ONDANSETRON 4 MG/2 ML VIAL IV PRN (23:59)
[2019-09-23] MEDS: SODIUM CHLORIDE 0.9% 1,000 ML IV SCH ×3 (00:01→21:10)
[2019-09-23] MEDS ORDERED: ACETAMINOPHEN/CODEINE 300-30 MG TABLET PO PRN (01:13)
[2019-09-23] MEDS ORDERED: BACLOFEN 10 MG TABLET PO PRN (01:13)
[2019-09-23] MEDS: METOPROLOL TARTRATE 25 MG TABLET PO SCH ×3 (02:13→21:05)
[2019-09-23] MEDS: MORPHINE 4 MG/1 ML VIAL IV PRN ×4 (02:13→17:48)
[2019-09-23] MEDS: KETOROLAC 15 MG/1 ML VIAL IV SCH ×3 (05:24→21:07)
[2019-09-23 06:36] LABS: Osmolality,Calculated 269.4 MOS/KG (273-304)
[2019-09-23] MEDS ORDERED: INFLUENZA VIRUS VACCINE 0.5 ML SYRINGE IM ONE (07:29)
[2019-09-23] MEDS: ASPIRIN EC 81 MG TABLET PO SCH (08:26)
[2019-09-23] MEDS: SUCRALFATE 1 GM/10 ML UDCUP PO SCH ×4 (08:26→20:56)
[2019-09-23] MEDS: ALUM/MAG/SIMETH/LIDO VISC 1:1 30 ML BOTTLE PO SCH ×4 (08:26→21:16)
[2019-09-23] MEDS: PANTOPRAZOLE 40 MG VIAL IV SCH (08:26)
[2019-09-23] MEDS: GABAPENTIN 300 MG CAPSULE PO SCH ×4 (08:26→20:56)
[2019-09-23] MEDS: ONDANSETRON 4 MG/2 ML VIAL IV PRN ×3 (08:26→17:48)
[2019-09-23] MEDS ORDERED: DOCUSATE SODIUM 100 MG CAPSULE PO SCH (09:00)
[2019-09-23] MEDS ORDERED: PANTOPRAZOLE 40 MG TABLET PO SCH ×2 (09:00)
[2019-09-23 09:18] LABS: Basophils % 0.1 % (0.0-0.8); Hemoglobin 10.2 GM/DL (14.0-18.0); Immature Granulocytes % 0.4 %; Immature Granulocytes Absolute 0.05 #; Lymphocytes % 7.8 % (21.2-54.2); Mean Corpuscular HGB Conc 29.1 GM/DL (32-36); Mean Corpuscular Volume 81.8 FL (87-102); Monocytes % 8.5 % (1.7-12.7); NRBC # 0.09 10*3/uL; Neutrophils % 83.2 % (38.7-73.9); Platelet Count 329 T/CUMM (130-400); Red Blood Count 4.28 MC/CUMM (3.8-5.5); White Blood Count 13.4 T/CUMM (4-12)
[2019-09-23 09:46] LABS: Band Neutrophils 29 % (0-10); Lymphocytes 18 % (20-55); Nucleated Red Blood Cells 1 (0-5); Platelet Estimate Normal; Segmented Neutrophils 44 % (50-85); Total Cells Counted 100
[2019-09-23 09:47] LABS: Anisocytosis 1+; Macrocytosis Slight; Polychromasia Slight
[2019-09-23] MEDS ORDERED: ALUM/MAG/SIMETH/LIDO VISC 1:1 30 ML BOTTLE PO ONE (17:04)
[2019-09-23] MEDS: traMADol 50 MG TABLET PO PRN (20:56)
[2019-09-24] MEDS: MORPHINE 4 MG/1 ML VIAL IV PRN ×3 (02:22→18:19)
[2019-09-24 05:13] LABS: Basophils % 0.2 % (0.0-0.8); Eosinophils % 0.2 % (0.00-10.9); Hematocrit 26.9 VOL% (42.0-52.0); Hemoglobin 7.9 GM/DL (14.0-18.0); Immature Granulocytes % 0.9 %; Immature Granulocytes Absolute 0.11 #; Mean Corpuscular HGB Conc 29.4 GM/DL (32-36); Mean Corpuscular Volume 80.3 FL (87-102); NRBC # 0.03 10*3/uL; Neutrophils % 82.7 % (38.7-73.9); Platelet Count 262 T/CUMM (130-400); Red Blood Count 3.35 MC/CUMM (3.8-5.5); Red Cell Distribution Width 17.8 % (9.3-17.3); White Blood Count 12.3 T/CUMM (4-12)
[2019-09-24 05:34] LABS: Band Neutrophils 10 % (0-10); Eosinophils 1 % (0-10); Hypochromasia 1+; Lymphocytes 8 % (20-55); Ovalocytes Slight; Platelet Estimate Adequate; Segmented Neutrophils 76 % (50-85); Total Cells Counted 100
[2019-09-24 05:45] LABS: Albumin 2.1 G/DL (3.4-5.0); Bilirubin,Total 0.9 MG/DL (0.2-1.0); Calcium 7.5 MG/DL (8.5-10.1); Osmolality,Calculated 271.2 MOS/KG (273-304); Total Protein 5.4 G/DL (6.4-8.3)
[2019-09-24] MEDS: KETOROLAC 15 MG/1 ML VIAL IV SCH ×3 (06:16→21:02)
[2019-09-24] MEDS: LACTATED RINGERS 1,000 ML IV SCH ×2 (06:21→07:08)
[2019-09-24] MEDS ORDERED: ETOMIDATE 20 MG/10 ML VIAL IV ONE (10:00)
[2019-09-24] MEDS ORDERED: propofoL 200 MG/20 ML VIAL IV ONE (10:00)
[2019-09-24] MEDS ORDERED: LIDOCAINE 2% 5 ML VIAL ONE (10:00)
[2019-09-24] MEDS: traMADol 50 MG TABLET PO PRN ×2 (14:40→20:53)
[2019-09-24] MEDS: ASPIRIN EC 81 MG TABLET PO SCH (14:40)
[2019-09-24] MEDS: GABAPENTIN 300 MG CAPSULE PO SCH ×3 (14:41→20:53)
[2019-09-24] MEDS: PANTOPRAZOLE 40 MG VIAL IV SCH (14:49)
[2019-09-24] MEDS: ALUM/MAG/SIMETH/LIDO VISC 1:1 30 ML BOTTLE PO SCH ×3 (14:50→20:54)
[2019-09-24] MEDS: LIDOCAINE 5% PATCH TRANSDERM SCH (14:50)
[2019-09-24] MEDS: SUCRALFATE 1 GM/10 ML UDCUP PO SCH ×3 (14:50→20:53)
[2019-09-24] MEDS: METOPROLOL TARTRATE 25 MG TABLET PO SCH ×2 (14:51→21:04)
[2019-09-24 17:54] LABS: Basophils % 0.2 % (0.0-0.8); Eosinophils % 0.2 % (0.00-10.9); Hematocrit 26.3 VOL% (42.0-52.0); Hemoglobin 7.8 GM/DL (14.0-18.0); Immature Granulocytes % 0.8 %; Lymphocytes # 1.1 10*3/uL (1.4-4.0); Lymphocytes % 8.9 % (21.2-54.2); Mean Corpuscular HGB Conc 29.7 GM/DL (32-36); Mean Corpuscular Volume 80.2 FL (87-102); Mean Platelet Volume 11.2 FL (9.6-12.0); Monocytes % 8.9 % (1.7-12.7); NRBC # 0.03 10*3/uL; Platelet Count 274 T/CUMM (130-400); Red Blood Count 3.28 MC/CUMM (3.8-5.5); Red Cell Distribution Width 17.9 % (9.3-17.3); White Blood Count 12.1 T/CUMM (4-12)
[2019-09-24 18:20] LABS: Lymphocytes 9 % (20-55); Segmented Neutrophils 82 % (50-85); Total Cells Counted 100
[2019-09-24 18:21] LABS: Anisocytosis 1+; Hypochromasia 1+; Microcytosis 1+; Platelet Estimate Normal; Tear Drop Cells Few
[2019-09-24] MEDS ORDERED: SODIUM CHLORIDE 0.9% 1,000 ML IV PRN (19:16)
[2019-09-24] MEDS ORDERED: FUROSEMIDE 20 MG/2 ML VIAL IV ONE (19:18)
[2019-09-24] MEDS: SODIUM CHLORIDE 0.9% 1,000 ML IV SCH (20:58)
[2019-09-25] MEDS: MORPHINE 4 MG/1 ML VIAL IV PRN ×3 (05:25→23:14)
[2019-09-25] MEDS: KETOROLAC 15 MG/1 ML VIAL IV SCH ×3 (06:16→21:11)
[2019-09-25 06:20] LABS: Albumin 2.1 G/DL (3.4-5.0); Bilirubin,Total 0.5 MG/DL (0.2-1.0); Calcium 7.8 MG/DL (8.5-10.1); Osmolality,Calculated 265.5 MOS/KG (273-304); Total Protein 5.7 G/DL (6.4-8.3)
[2019-09-25 06:22] LABS: Hematocrit 32.5 VOL% (42.0-52.0)
[2019-09-25] MEDS: SUCRALFATE 1 GM/10 ML UDCUP PO SCH ×3 (08:32→21:06)
[2019-09-25] MEDS: PANTOPRAZOLE 40 MG VIAL IV SCH (08:32)
[2019-09-25] MEDS: traMADol 50 MG TABLET PO PRN ×2 (08:34→17:34)
[2019-09-25] MEDS: METOPROLOL TARTRATE 25 MG TABLET PO SCH ×2 (08:34→21:06)
[2019-09-25] MEDS: LIDOCAINE 5% PATCH TRANSDERM SCH (08:34)
[2019-09-25] MEDS: ASPIRIN EC 81 MG TABLET PO SCH (08:34)
[2019-09-25] MEDS: GABAPENTIN 300 MG CAPSULE PO SCH ×2 (08:34→14:46)
[2019-09-25] MEDS: ALUM/MAG/SIMETH/LIDO VISC 1:1 30 ML BOTTLE PO SCH ×3 (08:35→21:06)
[2019-09-25] MEDS: LACTATED RINGERS 1,000 ML IV SCH (08:39)
[2019-09-25] MEDS ORDERED: NITROGLYCERIN SL 0.4 MG TABLET SL ONE (09:00)
[2019-09-25] MEDS ORDERED: LIDOCAINE 1% 20 ML VIAL ONE (09:06)
[2019-09-25] MEDS ORDERED: fentaNYL 100 MCG/2 ML VIAL ONE (09:06)
[2019-09-25] MEDS ORDERED: HEPARIN/NACL 0.9% 2 UNITS/ML 1,000 ML IV ONE (09:06)
[2019-09-25] MEDS ORDERED: MIDAZOLAM 2 MG/2 ML VIAL ONE (09:06)
[2019-09-25] MEDS: SODIUM CHLORIDE 0.9% 1,000 ML IV SCH (10:40)
[2019-09-25] MEDS ORDERED: HEPARIN/NACL 0.9% 2 UNITS/ML 500 ML IV ONE (11:13)
[2019-09-25] MEDS ORDERED: VERAPAMIL 5 MG/2 ML VIAL ONE (11:13)
[2019-09-25] MEDS: ONDANSETRON 4 MG/2 ML VIAL IV PRN (11:30)
[2019-09-25] MEDS ORDERED: NALOXONE 0.4 MG/ML VIAL ONE (12:38)
[2019-09-25] MEDS ORDERED: PHENYLEPHRINE DRIP 40 MG/250 ML PREMIX IV ONE (12:55)
[2019-09-25 13:29] LABS: ABG Base Excess -10.3 MMOL/L (-2.5-2.5); ABG HCO3 16.3 MMOL/L (20-26); ABG Oxygen Saturation 99.8 % (95-100); ABG PH 7.414 (7.35-7.45); ABG TCO2 11.6 MMOL/L (23-27)
[2019-09-25 13:31] LABS: ABG PCO2 20.1 MM HG (35-48)
[2019-09-25] MEDS ORDERED: methylPREDNISolone SOD SUC 125 MG/2 ML VIAL IV SCH (14:30)
[2019-09-25] MEDS: COLCHICINE 0.6 MG CAPSULE PO SCH ×2 (14:47→21:06)
[2019-09-25 15:21] LABS: Basophils % 0.2 % (0.0-0.8); Eosinophils % 0.1 % (0.00-10.9); Hematocrit 32.5 VOL% (42.0-52.0); Hemoglobin 9.5 GM/DL (14.0-18.0); Immature Granulocytes % 1.2 %; Immature Granulocytes Absolute 0.13 #; Lymphocytes # 0.6 10*3/uL (1.4-4.0); Mean Corpuscular HGB Conc 29.2 GM/DL (32-36); Mean Corpuscular Volume 83.5 FL (87-102); Mean Platelet Volume 11.1 FL (9.6-12.0); Monocytes % 7.1 % (1.7-12.7); NRBC # 0.12 10*3/uL; Neutrophils % 85.4 % (38.7-73.9); Platelet Count 213 T/CUMM (130-400); Red Blood Count 3.89 MC/CUMM (3.8-5.5); Red Cell Distribution Width 17.6 % (9.3-17.3); White Blood Count 10.5 T/CUMM (4-12)
[2019-09-25 15:26] LABS: Calcium 7.1 MG/DL (8.5-10.1); Osmolality,Calculated 274.1 MOS/KG (273-304)
[2019-09-25] MEDS: ALUMINUM/MAGNES/SIMETH MAX STR 30 ML UDCUP PO PRN (18:43)
[2019-09-25] MEDS: GABAPENTIN 400 MG CAPSULE PO SCH (21:06)
[2019-09-25] MEDS: methylPREDNISolone SOD SUC 125 MG/2 ML VIAL IV SCH (23:12)
[2019-09-26] MEDS: methylPREDNISolone SOD SUC 125 MG/2 ML VIAL IV SCH ×3 (05:18→21:44)
[2019-09-26] MEDS: KETOROLAC 15 MG/1 ML VIAL IV SCH ×3 (05:23→21:47)
[2019-09-26] MEDS: MORPHINE 4 MG/1 ML VIAL IV PRN ×2 (05:25→20:08)
[2019-09-26 05:32] LABS: Basophils % 0.1 % (0.0-0.8); Hematocrit 33.7 VOL% (42.0-52.0); Hemoglobin 10.2 GM/DL (14.0-18.0); Immature Granulocytes % 0.8 %; Immature Granulocytes Absolute 0.08 #; Lymphocytes # 0.6 10*3/uL (1.4-4.0); Lymphocytes % 5.7 % (21.2-54.2); Mean Corpuscular HGB Conc 30.3 GM/DL (32-36); Mean Platelet Volume 11.3 FL (9.6-12.0); Monocytes % 6.1 % (1.7-12.7); NRBC # 0.11 10*3/uL; Neutrophils % 87.3 % (38.7-73.9); Platelet Count 228 T/CUMM (130-400); Red Blood Count 4.11 MC/CUMM (3.8-5.5); Red Cell Distribution Width 17.7 % (9.3-17.3); White Blood Count 10.6 T/CUMM (4-12)
[2019-09-26 06:03] LABS: Calcium 7.7 MG/DL (8.5-10.1); Osmolality,Calculated 275.1 MOS/KG (273-304)
[2019-09-26] MEDS: SUCRALFATE 1 GM/10 ML UDCUP PO SCH ×4 (08:06→20:29)
[2019-09-26] MEDS: ALUM/MAG/SIMETH/LIDO VISC 1:1 30 ML BOTTLE PO SCH ×3 (08:06→20:29)
[2019-09-26] MEDS: PANTOPRAZOLE 40 MG VIAL IV SCH (08:06)
[2019-09-26] MEDS: GABAPENTIN 400 MG CAPSULE PO SCH ×3 (08:07→21:44)
[2019-09-26] MEDS: ASPIRIN EC 81 MG TABLET PO SCH (08:07)
[2019-09-26] MEDS: LIDOCAINE 5% PATCH TRANSDERM SCH (08:07)
[2019-09-26] MEDS: METOPROLOL TARTRATE 25 MG TABLET PO SCH ×2 (08:07→21:44)
[2019-09-26] MEDS: COLCHICINE 0.6 MG CAPSULE PO SCH ×2 (08:07→21:44)
[2019-09-26] MEDS: ALUMINUM/MAGNES/SIMETH MAX STR 30 ML UDCUP PO PRN (11:55)
[2019-09-26] MEDS: traMADol 50 MG TABLET PO PRN (11:55)
[2019-09-27] MEDS: MORPHINE 4 MG/1 ML VIAL IV PRN ×3 (03:35→21:56)
[2019-09-27] MEDS: methylPREDNISolone SOD SUC 125 MG/2 ML VIAL IV SCH ×3 (06:26→21:38)
[2019-09-27] MEDS: KETOROLAC 15 MG/1 ML VIAL IV SCH ×4 (06:29→21:29)
[2019-09-27] MEDS: FUROSEMIDE 20 MG/2 ML VIAL IV SCH ×2 (07:16→08:28)
[2019-09-27] MEDS: SUCRALFATE 1 GM/10 ML UDCUP PO SCH ×4 (07:16→21:38)
[2019-09-27] MEDS: BACLOFEN 10 MG TABLET PO SCH ×2 (07:17→15:09)
[2019-09-27] MEDS: ASPIRIN EC 81 MG TABLET PO SCH (08:24)
[2019-09-27] MEDS: CALCIUM (CITRATE) 200 MG TABLET PO SCH ×2 (08:24→21:56)
[2019-09-27] MEDS: METOPROLOL TARTRATE 25 MG TABLET PO SCH ×2 (08:24→21:55)
[2019-09-27] MEDS: lisinopriL 2.5 MG TABLET PO SCH (08:24)
[2019-09-27] MEDS: COLCHICINE 0.6 MG CAPSULE PO SCH ×2 (08:24→21:38)
[2019-09-27] MEDS: GABAPENTIN 400 MG CAPSULE PO SCH ×3 (08:24→21:38)
[2019-09-27] MEDS: PANTOPRAZOLE 40 MG VIAL IV SCH (08:28)
[2019-09-27] MEDS: ALUM/MAG/SIMETH/LIDO VISC 1:1 30 ML BOTTLE PO SCH ×3 (08:28→21:38)
[2019-09-27] MEDS: LIDOCAINE 5% PATCH TRANSDERM SCH (09:05)
[2019-09-27 09:54] LABS: Apearance,Urine CLEAR (Clear); Bilirubin,Urine Negative (Negative); Blood, Urine Negative (Negative); Glucose,Urine (UA) Negative (Negative); Ketones,Urine Negative (Negative); Mucus,Urine Occasional /LPF (Occasional); Nitrite,Urine Negative (Negative); Protein,Urine Negative; RBC,Urine 1 /HPF (0-4); Squamous Epithelial Cell,Urine Occasional /HPF (0-10); Urine Color Straw (Yellow); Urine Specific Gravity 1.009 (1.001-1.035); Urine Urobilinogen < 2.0 EU/DL (0.2-1.0); WBC,Urine <1 /HPF (0-6)
[2019-09-27] MEDS: traMADol 50 MG TABLET PO PRN (15:43)
[2019-09-27] MEDS ORDERED: traMADol 50 MG TABLET PO SCH (21:00)
[2019-09-27] MEDS: traMADol 50 MG TABLET PO SCH (21:31)
[2019-09-28] MEDS: BACLOFEN 10 MG TABLET PO SCH ×3 (00:44→18:10)
[2019-09-28] MEDS: KETOROLAC 15 MG/1 ML VIAL IV SCH ×4 (00:45→21:31)
[2019-09-28] MEDS: methylPREDNISolone SOD SUC 125 MG/2 ML VIAL IV SCH ×3 (05:37→21:34)
[2019-09-28 05:57] LABS: Basophils # 0.1 10*3/uL (0.0-0.2); Basophils % 0.4 % (0.0-0.8); Hematocrit 39.5 VOL% (42.0-52.0); Hemoglobin 12.2 GM/DL (14.0-18.0); Immature Granulocytes % 2.2 %; Immature Granulocytes Absolute 0.41 #; Lymphocytes # 0.6 10*3/uL (1.4-4.0); Lymphocytes % 3.4 % (21.2-54.2); Mean Corpuscular HGB Conc 30.9 GM/DL (32-36); Mean Corpuscular Volume 79.6 FL (87-102); Mean Platelet Volume 11.9 FL (9.6-12.0); Monocytes % 7.8 % (1.7-12.7); NRBC # 0.28 10*3/uL; Neutrophils % 86.2 % (38.7-73.9); Platelet Count 221 T/CUMM (130-400); Red Blood Count 4.96 MC/CUMM (3.8-5.5); Red Cell Distribution Width 18.4 % (9.3-17.3); White Blood Count 18.6 T/CUMM (4-12)
[2019-09-28 06:42] LABS: Albumin 2.3 G/DL (3.4-5.0); Bilirubin,Total 0.7 MG/DL (0.2-1.0); Calcium 8.5 MG/DL (8.5-10.1); Osmolality,Calculated 277.2 MOS/KG (273-304); Total Protein 6.5 G/DL (6.4-8.3)
[2019-09-28 07:09] LABS: Band Neutrophils 9 % (0-10); Lymphocytes 5 % (20-55); Metamyelocytes 3 %; Nucleated Red Blood Cells 1 (0-5); Segmented Neutrophils 76 % (50-85); Total Cells Counted 100
[2019-09-28 07:11] LABS: Burr Cells 2+; Platelet Estimate Normal
[2019-09-28 07:12] LABS: Hypochromasia Slight; Polychromasia Few
[2019-09-28] MEDS: COLCHICINE 0.6 MG CAPSULE PO SCH ×2 (08:48→21:30)
[2019-09-28] MEDS: GABAPENTIN 400 MG CAPSULE PO SCH ×3 (08:49→21:31)
[2019-09-28] MEDS: LIDOCAINE 5% PATCH TRANSDERM SCH (08:49)
[2019-09-28] MEDS: SUCRALFATE 1 GM/10 ML UDCUP PO SCH ×4 (08:50→21:31)
[2019-09-28] MEDS: ASPIRIN EC 81 MG TABLET PO SCH (08:50)
[2019-09-28] MEDS: ALUM/MAG/SIMETH/LIDO VISC 1:1 30 ML BOTTLE PO SCH ×3 (08:51→21:34)
[2019-09-28] MEDS: CALCIUM (CITRATE) 200 MG TABLET PO SCH ×2 (08:51→21:30)
[2019-09-28] MEDS: FUROSEMIDE 20 MG/2 ML VIAL IV SCH (08:51)
[2019-09-28] MEDS: METOPROLOL TARTRATE 25 MG TABLET PO SCH ×2 (08:51→21:30)
[2019-09-28] MEDS: lisinopriL 2.5 MG TABLET PO SCH (08:52)
[2019-09-28] MEDS: PANTOPRAZOLE 40 MG VIAL IV SCH ×2 (08:52→21:31)
[2019-09-28] MEDS: traMADol 50 MG TABLET PO SCH ×3 (09:01→21:30)
[2019-09-28] MEDS ORDERED: MEGESTROL 400 MG/10 ML UDCUP PO SCH (21:00)
[2019-09-28] MEDS ORDERED: carvediloL 12.5 MG TABLET PO SCH (23:30)
[2019-09-29] MEDS ORDERED: EPINEPHrine 1 MG/ML VIAL ONE (00:05)
[2019-09-29 06:11] VITALS: BP 121/79
== END 2019-09-29 00:18 | disposition expired | DRG 391 ==
LOC: N.ED 18:50 → N.EDINP 21:27 → N.4E 22:28 → N.TELEN 09-25 11:26 → N.ICU 09-25 12:56 → N.TELES 09-27 10:36
PROVIDERS: ADMIT Internal Medicine; ATTEND Internal Medicine
PROC: CLCCHCL (ICD-10-PCS; 2019-09-25 09:45)